=== PATIENT | female | born 1965 | race Caucasian/White ===

== ENCOUNTER 2016-05-13 14:37 | Inpatient (IN) | payer SELFPAY ==
[2016-05-13 14:37] VITALS: BMI 28.1
[2016-05-13] MEDS ORDERED: HYDROmorphone 0.5 mg/0.5 ml ISec IVP STA ×3 (15:55→23:44)
[2016-05-13] MEDS ORDERED: DiphenhydrAMINE 50 mg/ml Inj IVP STA ×4 (15:59→21:10)
[2016-05-13] MEDS ORDERED: DiphenhydrAMINE 50 mg/ml Inj ONE ×4 (16:06→21:42)
--- NOTE | 2016-05-13 16:46 | C.PDOC ---
History Of Present Illness 50-year-old female, PMHx includes B-Cell Lymphoma w/ widespread lymph nodes ( currently on chemo), presents to the emergency department with complaints of increased generalized pain and associated pain in right flank for the past several weeks. Patient was sent from [facility] for pain control; Additional Hx obtained from Dr Murray, who states that patient had a PET scan that showed improvement symptoms. States he prescribed long-acting narcotics for pt. Patient states she is taking Dilaudid, once daily, because she cannot afford any other narcotics. No other complaints at this time. Time Seen by Provider: 05/13/16 15:22 Chief Complaint (Nursing): Back Pain History Per: Patient, Other (PMD) History/Exam Limitations: no limitations Onset/Duration Of Symptoms: Days Severity: Severe Past Medical History Reviewed: Historical Data, Nursing Documentation, Vital Signs Vital Signs: Last Vital Signs Temp 98.1 F 05/13/16 22:30 Pulse 82 05/13/16 22:30 Resp 20 05/13/16 22:30 BP 149/84 05/13/16 22:30 Pulse Ox 99 05/13/16 22:30 - Medical History PMH: Anxiety, Diabetes, Gall Bladder Disease (cholecystectomy 3 yrs. ago), HTN, Malignancy (on chemo), Pancreatitis Other PMH: B cell lymphoma Surgical History: Cholecystectomy - [facility] Procedures ASSISTANCE WITH RESPIRATORY VENTILATION, 24-96 HRS, CPAP (10/14/15) BYPASS TRANSVERSE COLON TO CUTANEOUS, OPEN APPROACH (10/14/15) EXCISION OF AORTIC LYMPHATIC, PERCUTANEOUS APPROACH, DIAGN (09/20/15) EXCISION OF RIGHT UPPER LUNG LOBE, ENDO, DIAGN (10/14/15) EXCISION OF RIGHT UPPER LUNG LOBE, PERC APPROACH, DIAGN (01/01/16) EXCISION OF STOMACH, ENDO, DIAGN (05/24/15) INSERTION OF INFUSION DEV INTO SUP VENA CAVA, PERC APPROACH (01/01/16) INSERTION OF VAD INTO CHEST SUBCU/FASCIA, OPEN APPROACH (01/01/16) LAPAROSCOPIC CHOLECYSTECTOMY (08/23/13) MYRINGOTOMY W INTUBATION (09/01/12) REPAIR ABDOMINAL WALL, OPEN APPROACH (01/01/16) VENOUS CATHETERIZATION NEC (09/09/12) Family History: States: Unknown Family Hx - Social History Hx Tobacco Use: No Hx Alcohol Use: No Hx Substance Use: No Review Of Systems Except As Marked, All Systems Reviewed And Found Negative. Constitutional: Positive for: Weakness, Malaise. Negative for: Fever, Chills Cardiovascular: Negative for: Chest Pain, Palpitations Respiratory: Negative for: Shortness of Breath Gastrointestinal: Negative for: Nausea, Vomiting Musculoskeletal: Positive for: Back Pain Skin: Negative for: Rash Neurological: Negative for: Weakness, Numbness, Headache, Dizziness Physical Exam - Physical Exam Appears: Non-toxic, No Acute Distress Skin: Warm, Dry, No Rash Head: Atraumatic, Normacephalic Eye(s): bilateral: Normal Inspection, PERRL, EOMI Oral Mucosa: Moist Neck: Normal ROM Chest: Symmetrical Cardiovascular: Rhythm Regular Respiratory: Normal Breath Sounds, No Rales, No Rhonchi Gastrointestinal/Abdominal: Soft, No Tenderness, No Guarding, No Rebound Back: No CVA Tenderness, No Paraspinal Tenderness Extremity: Normal ROM Neurological/Psych: Oriented x3, Normal Speech, Normal Cognition ED Course And Treatment - Laboratory Results Result Diagrams: 05/13/16 19:53 05/13/16 19:53 O2 Sat by Pulse Oximetry: 99 Medical Decision Making Medical Decision Making: Discussed with dr Fiorella Machuca, initial plan pain relief office f/u Post mult dose of dilaudid/benadryl some relief, but no comfortable for dc. Pt has no long acting opiate at home Again discussed with dr Machuca who recommended observation Discussed with dr Bailey who admitted the pt Disposition - Disposition Disposition: HOSPITALIZED Disposition Time: 19:00 Condition: FAIR - Clinical Impression Clinical Impression: Diffuse large B cell lymphoma, Intractable pain - Scribe Statement The provider has reviewed the documentation as recorded by the Codi Allen All medical record entries made by the Codi were at my direction and personally dictated by me. I have reviewed the chart and agree that the record accurately reflects my personal performance of the history, physical exam, medical decision making, and the department course for this patient. I have also personally directed, reviewed, and agree with the discharge instructions and disposition. Decision To Admit - Pt Status Changed To: Hospital Disposition Of: Observation - . Bed Request Type: Regular Admitting Physician: Edmond Tellez Patient Diagnosis: Diffuse large B cell lymphoma, Intractable pain
[2016-05-13 18:32] LABS: RBC URINE < 1 /hpf (0-3); URINE BILIRUBIN NEGATIVE (NEGATIVE); URINE BLOOD NEGATIVE (NEGATIVE); URINE COLOR Straw (YELLOW); URINE GLUCOSE (UA) 3+ mg/dL (Normal); URINE KETONE NEGATIVE (NEGATIVE); URINE LEUKOCYTE ESTERASE NEG Leu/uL (Negative); URINE PROTEIN 1+ mg/dL (NEGATIVE); URINE UROBILINOGEN NORMAL mg/dL (0.2-1.0); WBC URINE 1 /hpf (0-5)
[2016-05-13] MEDS ORDERED: HYDROmorphone 1 mg/ml ISec ONE (19:45)
[2016-05-13 19:58] LABS: BASO % 0.1 % (0.0-2.0); HEMATOCRIT 29.2 % (34.0-47.0); LYMPH # 0.2 K/uL (1.0-4.3); LYMPH % 1.1 % (20.0-40.0); MEAN CELL VOLUME 86.3 fL (81.0-99.0); MEAN CORPUSCULAR HEMOGLOBIN 29.1 pg (27.0-31.0); MEAN CORPUSCULAR HGB CONC 33.7 g/dL (33.0-37.0); MEAN PLATELET VOLUME 8.1 fL (7.2-11.7); MONO # 0.2 K/uL (0.0-0.8); MONO % 0.8 % (0.0-10.0); PLATELET COUNT 161 K/uL (130-400); RED CELL DISTRIBUTION WIDTH 18.1 % (11.5-14.5); WHITE BLOOD COUNT 21.6 K/uL (4.8-10.8)
[2016-05-13 20:04] LABS: POTASSIUM 4.9 mmol/L (3.6-5.2)
[2016-05-13 20:06] LABS: ALB/GLOB RATIO 1.3 (1.0-2.1); BILIRUBIN,TOTAL 0.6 mg/dL (0.2-1.3); TOTAL PROTEIN 6.1 g/dL (6.3-8.3)
[2016-05-13 21:58] LABS: NEUTROPHIL 98 % (50-75); TOTAL CELLS COUNTED 100
--- NOTE | 2016-05-13 22:55 | CP.PCM.HP ---
<Connor Lin - Last Filed: 05/14/16 08:15> History of Present Illness - History of Present Illness History of Present Illness: CC: intractable pain, straining to urinate HPI: 50 year old female with PMHx significant for B cell lymphoma, HTN, GERD, DM presents with chief complaint of generalized body pain. Patient was sent up from the chemotherapy infusion center for pain control. Patient feels that her current pain control regimen of Dilaudid is insufficient. She admits taking Dilaudid doses earlier than prescribed because her pain is intolerable. She states she has had similar pain for the "past year," about the time of her cancer diagnosis. The worst pain she admits is in her right flank and neck, which cause her not to be able get comfortable during the day, sleep at night, or want to walk or eat. She describes the pain as 10/10, constant "24/7," that feels like her "bones are on-fire." She states this was her final dose of chemotherapy, which she was receiving every 3 weeks for the last 6 months. After each chemotherapy session, pt receives 5 days of prednisone, which has caused her blood glucose numbers to be increased. She admits increased urge to urinate, but states she is only able to pass a small amount of urine at each void. She admits to having to push to urinate. She denies hematuria, dysuria, burning sensation, or vaginal discharge. PMHx: GERD, HTN, DM, lymphoma Surgical Hx: ex-lap with transverse colostomy and later reversal, cholecystectomy Family Hx: Mom - Kidney Tumor, Uncle- kidney disease, father had three strokes , brother of bone cancer in 2011 at the age of 52; older brother had a CABG Social Hx: admits to smoking tobacco and hookah from [id number]; has since stopped, At that time, smoked 1 ppd; denies alcohol or illicit drug use. Lives with family in [place]. Meds: Insulin Lantus 15 units AC, Metformin 1000 mg daily, Dilaudid 2 mg PO twice a day, Humalog 75/25 ( 10 three times a day after meals); prednisone approx 5 days post chemotherapy treatments Allergies: Penicillin and morphine ( hives) PMD: Clinic [facility]- Dr. Cruz Machuca Present on Admission - Present on Admission Any Indicators Present on Admission: No History of DVT/PE: No History of Uncontrolled Diabetes: No Urinary Catheter: No Review of Systems - Constitutional Constitutional: absent: Chills, Fever, Headache, Weight Gain, Weight Loss - EENT Eyes: absent: Change in Vision Ears: absent: Decreased Hearing Nose/Mouth/Throat: absent: Nasal Congestion - Cardiovascular Cardiovascular: absent: Chest Pain, Chest Pain at Rest, Dyspnea, Dyspnea on Exertion, Leg Edema, Palpitations - Respiratory Respiratory: absent: Cough, Hemoptysis - Gastrointestinal Gastrointestinal: Abdominal Pain, Constipation, Nausea, Vomiting. absent: Diarrhea - Genitourinary Genitourinary: Difficulty Urinating, Flank Pain, Urinary Frequency. absent: Dysuria, Hematuria - Musculoskeletal Musculoskeletal: Arthralgias, Back Pain, Myalgias - Integumentary Integumentary: Rash (erythematous, pruritc rash near port on chest) - Neurological Neurological: absent: Dizziness, Headaches - Psychiatric Psychiatric: Anxiety - Endocrine Endocrine: Polyuria. absent: Palpitations, Polydipsia, Polyphagia Past Patient History - Infectious Disease Hx of Infectious Diseases: None - Past Medical History & Family History Past Medical History?: Yes - Past Social History Smoking Status: Never Smoked - CARDIAC Hx Hypertension: Yes - PULMONARY Hx Respiratory Disorders: No - NEUROLOGICAL Hx Neurological Disorder: No - HEENT Hx HEENT Problems: No - RENAL Hx Chronic Kidney Disease: No - ENDOCRINE/METABOLIC Hx Diabetes Mellitus Type 2: Yes - HEMATOLOGICAL/ONCOLOGICAL Hx Blood Transfusions: Yes (04/26) Hx Cancer: Yes Other/Comment: stomach, lung, liver. - INTEGUMENTARY Hx Dermatological Problems: No - MUSCULOSKELETAL/RHEUMATOLOGICAL Hx Falls: No - GASTROINTESTINAL Hx Gall Bladder Disease: Yes (cholecystectomy 3 yrs. ago) Hx Pancreatitis: Yes - GENITOURINARY/GYNECOLOGICAL Hx Genitourinary Disorders: No - PSYCHIATRIC Hx Anxiety: Yes Hx Substance Use: No - SURGICAL HISTORY Hx Cholecystectomy: Yes - ANESTHESIA Hx Anesthesia: Yes Hx Anesthesia Reactions: No Hx Malignant Hyperthermia: No Meds Allergies/Adverse Reactions: Allergies Allergy/AdvReac Type Severity Reaction Status Date / Time Penicillins Allergy Verified 05/13/16 14:42 morphine AdvReac ITCHING Verified 05/13/16 14:42 Physical Exam - Constitutional Appears: Non-toxic, No Acute Distress - Head Exam Head Exam: ATRAUMATIC, NORMOCEPHALIC - Eye Exam Eye Exam: EOMI, Normal appearance, PERRL - ENT Exam ENT Exam: Mucous Membranes Moist - Neck Exam Neck exam: Positive for: Normal Inspection - Respiratory Exam Respiratory Exam: Clear to Auscultation Bilateral, NORMAL BREATHING PATTERN. absent: Rales, Rhonchi, Wheezes, Respiratory Distress - Cardiovascular Exam Cardiovascular Exam: REGULAR RHYTHM, +S1, +S2 Additional comments: Port-a-cath located in center chest - GI/Abdominal Exam GI & Abdominal Exam: Hypoactive Bowel Sounds, Soft. absent: Guarding, Tenderness Additional comments: Ventral hernia (bulges with coughing) Scarring noted from colostomy reversal - Extremities Exam Extremities exam: Positive for: normal capillary refill, normal inspection, tenderness ("bones on fire"), pedal pulses present - Back Exam Back exam: CVA tenderness (R), tenderness. absent: CVA tenderness (L) Additional comments: Tenderness with palpation of spine and paravertebral muscles from T7/8- L5. Tissure texture changes noted in this area. Pain on palpation at right iliac crest. - Neurological Exam Neurological exam: Alert, Oriented x3 - Psychiatric Exam Psychiatric exam: Normal Affect - Skin Skin Exam: Normal Color, Rash (erythematous rash near port on chest), Warm Results - Vital Signs Recent Vital Signs: Last Vital Signs Temp 98.2 F 05/13/16 19:05 Pulse 86 05/13/16 19:05 Resp 14 05/13/16 19:05 BP 160/87 H 05/13/16 19:05 Pulse Ox 99 05/13/16 21:56 - Labs Result Diagrams: 05/13/16 19:53 05/13/16 19:53 Assessment & Plan - Assessment and Plan (Free Text) Assessment: Body aches Worst in Neck, Lower back Secondary to tumor burden/chemo Dilaudid 4mg PO Q4H PRN Benadryl 25mg IV Q4H PRN Abdominal Pain Secondary to tumor burden/chemo History of colostomy, then reversal Zofran 4mg IVP Q6 PRN Dilaudid 4mg PO Q4H PRN Benadryl 25mg IV Q4H PRN Dysuria Pt complaining of difficult urination, straining On prior CT, tumor burden found near ureter UA: 3+ glucose, 1+ protein f/u Urine culture Tamsulosin 0.4mg PO Daily Type 2, Diabetes Mellitus Accuchecks Continue Home med: Lantus 15 units in AM, Humalog 75/25 10 units ACTID Hold Metformin 1000mg PO Daily due to renal function A1C: 7.9 (05/03/16) Diffuse B-Cell lymphoma Management per Hem/Onc Hem/Onc: Dr. Machuca, help appreciated - f/u reccs Palliative Care consult, help appreciated - f/u reccs Dietary Referral, help appreciated - started on heart healthy diet Leukocytosis Pt receiving Neupogen with chemo Nuetrolphils 98%, one band f/u labs Hx of HTN Normotensive in ED Denies currently taking home BP meds, though listed on recent admission Elevated Bun/Cr Believed secondary to chemo BUN/Cr 32/1.3 Pt at Baseline of 1.3, much higher in past (3.8) Constipation Miralax Q12H Prophylaxis Heparin 5000units SC Q8H Protonix 40mg IV Daily SCDs <Edmond Tellez P - Last Filed: 05/21/16 08:28> Results - Vital Signs Recent Vital Signs: Last Vital Signs Temp 98.6 F 05/21/16 07:47 Pulse 93 H 05/21/16 07:47 Resp 20 05/21/16 07:47 BP 133/84 05/21/16 07:47 Pulse Ox 98 05/21/16 07:47 - Labs Result Diagrams: 05/21/16 07:40 05/21/16 07:40 Labs: Laboratory Results - last 24 hr 05/20/16 05/20/16 05/20/16 08:00 11:34 16:39 WBC RBC Hgb Hct MCV MCH MCHC RDW Plt Count MPV Neut % (Auto) Lymph % (Auto) [place] % (Auto) Eos % (Auto) Baso % (Auto) Neut # Lymph # Eagle # Eos # Baso # Neutrophils % (Manual) 40 L Band Neutrophils % 10 H Lymphocytes % (Manual) 19 L Monocytes % (Manual) 28 H Metamyelocytes % 1 H Myelocytes % 2 H Platelet Estimate Normal Basophilic Stippling Slight Anisocytosis (manual) Slight Sodium Potassium Chloride Carbon Dioxide Anion Gap BUN Creatinine Est GFR ( Amer) Est GFR (Non-Af Amer) POC Glucose (mg/dL) 232 H 186 H Random Glucose Calcium Phosphorus Magnesium Total Bilirubin AST ALT Alkaline Phosphatase Total Protein Albumin Globulin Albumin/Globulin Ratio Urine Color Urine Clarity Urine pH Ur Specific [place] Urine Protein Urine Glucose (UA) Urine Ketones Urine Blood Urine Nitrate Urine Bilirubin Urine Urobilinogen Ur Leukocyte Esterase Urine WBC (Auto) Ur Squamous Epith Cells 05/20/16 05/20/16 05/21/16 21:39 21:52 01:05 WBC RBC Hgb Hct MCV MCH MCHC RDW Plt Count MPV Neut % (Auto) Lymph % (Auto) [place] % (Auto) Eos % (Auto) Baso % (Auto) Neut # Lymph # Eagle # Eos # Baso # Neutrophils % (Manual) Band Neutrophils % Lymphocytes % (Manual) Monocytes % (Manual) Metamyelocytes % Myelocytes % Platelet Estimate Basophilic Stippling Anisocytosis (manual) Sodium Potassium Chloride Carbon Dioxide Anion Gap BUN Creatinine Est GFR ( Amer) Est GFR (Non-Af Amer) POC Glucose (mg/dL) 340 H 418 H* Random Glucose Calcium Phosphorus Magnesium Total Bilirubin AST ALT Alkaline Phosphatase Total Protein Albumin Globulin Albumin/Globulin Ratio Urine Color Yellow Urine Clarity Clear Urine pH 7.0 Ur Specific [place] 1.009 Urine Protein 1+ H Urine Glucose (UA) Normal Urine Ketones Negative Urine Blood Negative Urine Nitrate Negative Urine Bilirubin Negative Urine Urobilinogen Normal Ur Leukocyte Esterase Neg Urine WBC (Auto) < 1 Ur Squamous Epith Cells < 1 05/21/16 05/21/16 05/21/16 06:03 07:04 07:40 WBC 3.2 L RBC 3.10 L Hgb 8.9 L Hct 26.7 L MCV 86.1 MCH 28.6 MCHC 33.2 RDW 17.3 H Plt Count 142 MPV 8.7 Neut % (Auto) 51.1 Lymph % (Auto) 20.1 Eagle % (Auto) 27.1 H Eos % (Auto) 0.9 Baso % (Auto) 0.8 Neut # 1.6 L Lymph # 0.6 L Eagle # 0.9 H Eos # 0.0 Baso # 0.0 Neutrophils % (Manual) Band Neutrophils % Lymphocytes % (Manual) Monocytes % (Manual) Metamyelocytes % Myelocytes % Platelet Estimate Basophilic Stippling Anisocytosis (manual) Sodium 132 Potassium 4.1 Chloride 91 L Carbon Dioxide 30 Anion Gap 16 BUN 22 H Creatinine 1.5 H Est GFR ( Amer) 44 Est GFR (Non-Af Amer) 37 POC Glucose (mg/dL) 387 H 326 H Random Glucose 306 H Calcium 8.3 L Phosphorus 4.2 Magnesium 1.9 Total Bilirubin 0.2 AST 17 ALT 17 Alkaline Phosphatase 68 Total Protein 6.4 Albumin 3.4 L Globulin 3.0 Albumin/Globulin Ratio 1.2 Urine Color Urine Clarity Urine pH Ur Specific [place] Urine Protein Urine Glucose (UA) Urine Ketones Urine Blood Urine Nitrate Urine Bilirubin Urine Urobilinogen Ur Leukocyte Esterase Urine WBC (Auto) Ur Squamous Epith Cells Attending/Attestation - Attestation I have personally seen and examined this patient.: Yes I have fully participated in the care of the patient.: Yes I have reviewed all pertinent clinical information: Yes
[2016-05-14] MEDS ORDERED: DiphenhydrAMINE 50 mg/ml Inj IVP STA ×3 (00:16→09:15)
[2016-05-14] MEDS ORDERED: POLYETHYLENE GLYCOL 3350 17 GM/Dose PACKET PO SCH (01:15)
[2016-05-14] MEDS: (Novolog) Insulin Aspart, Recombinant 100 u/ml 10 ml vial SC SCH ×3 (08:03→17:17)
[2016-05-14] MEDS: (Novolin R) Insulin Human Regular 100 units/ml vial SC SCH ×4 (08:04→21:50)
[2016-05-14] MEDS: POLYETHYLENE GLYCOL 3350 17 GM/Dose PACKET PO SCH ×2 (09:59→21:47)
[2016-05-14 11:36] LABS: BASO % 0.3 % (0.0-2.0); HEMATOCRIT 27.7 % (34.0-47.0); LYMPH % 6.5 % (20.0-40.0); MEAN CELL VOLUME 86.2 fL (81.0-99.0); MEAN CORPUSCULAR HEMOGLOBIN 29.4 pg (27.0-31.0); MEAN CORPUSCULAR HGB CONC 34.1 g/dL (33.0-37.0); MEAN PLATELET VOLUME 8.5 fL (7.2-11.7); MONO # 0.1 K/uL (0.0-0.8); MONO % 0.7 % (0.0-10.0); NRBC % 0.1 % (0.0-2.0); PLATELET COUNT 142 K/uL (130-400); RED CELL DISTRIBUTION WIDTH 18.3 % (11.5-14.5)
[2016-05-14 11:38] LABS: POTASSIUM 3.1 mmol/L (3.6-5.2)
[2016-05-14 11:40] LABS: BILIRUBIN,TOTAL 0.5 mg/dL (0.2-1.3); TOTAL PROTEIN 6.1 g/dL (6.3-8.3)
[2016-05-14 11:41] LABS: CALCIUM 8.4 mg/dl (8.6-10.4); MAGNESIUM 1.6 mg/dL (1.6-2.3); PHOSPHOROUS 3.7 mg/dL (2.5-4.5)
[2016-05-14] MEDS: (Lantus) Insulin Glargine, Recombinant SC SCH (11:49)
[2016-05-14] MEDS: Docusate-Senna 50 mg-8.6 mg Tab PO SCH ×2 (11:49→21:52)
[2016-05-14] MEDS: HYDROmorphone 1 mg/ml ISec IVP PRN ×3 (12:04→20:10)
[2016-05-14 12:05] LABS: NEUTROPHIL 86 % (50-75); TOTAL CELLS COUNTED 100
[2016-05-14] MEDS ORDERED: Potassium Chloride 20 mEq/15 ml LIQ UD PO STA (12:08)
[2016-05-14] MEDS: DiphenhydrAMINE 50 mg/ml Inj IVP PRN ×3 (12:34→20:10)
[2016-05-14] MEDS ORDERED: Potassium Chloride 20 mEq 100 ML IVPB ONE ×2 (13:14→15:30)
--- NOTE | 2016-05-14 13:26 | CP.PCM.PN ---
<Oren Navarro - Last Filed: 05/14/16 14:37> Subjective - Date & Time of Evaluation Date of Evaluation: 05/14/16 Time of Evaluation: 08:00 - Subjective Subjective: patient seen and examined at bedside; was stating that her pain is "just too much to bear" and that "none of this dilaudid is working anymore". states she wants a palliative care consult for pain management. She denies any fevers/ chills, GARY, CP, SOB, abdominal pain, N/V/D, dysuria/freq/urg, or lower extremity swelling. She +body aches, "bone pain". Objective - Vital Signs/Intake and Output Vital Signs (last 24 hours): Temp Pulse Resp BP Pulse Ox 98.1 F 78 20 149/86 99 05/14/16 08:33 05/14/16 08:33 05/14/16 08:33 05/14/16 08:33 05/14/16 08:33 - Medications Medications: Current Medications Diphenhydramine HCl (Benadryl) 25 mg IVP Q4H PRN Last Admin: 05/14/16 12:34 Dose: 25 mg Heparin Sodium (Porcine) (Heparin) 5,000 units SC Q8 [facility] Last Admin: 05/14/16 13:07 Dose: 5,000 units Hydromorphone HCl (Dilaudid) 4 mg PO Q4H PRN PRN Reason: Pain, severe (8-10) Last Admin: 05/14/16 08:01 Dose: 4 mg Hydromorphone HCl (Dilaudid) 1 mg IVP Q4H PRN PRN Reason: Pain, severe (8-10) Last Admin: 05/14/16 12:04 Dose: 1 mg Potassium Chloride (Potassium Chloride 20 Meq/100 Ml) 100 mls @ 50 mls/hr IVPB ONCE ONE Stop: 05/14/16 15:13 Potassium Chloride (Potassium Chloride 20 Meq/100 Ml) 100 mls @ 50 mls/hr IVPB ONCE ONE Stop: 05/14/16 17:29 Insulin Aspart (Novolog) 10 unit SC ACTID [facility] Last Admin: 05/14/16 12:06 Dose: 10 unit Insulin Glargine (Lantus) 15 unit SC DAILY [facility] Last Admin: 05/14/16 11:49 Dose: 15 units Insulin Human Regular (Novolin R) 0 unit SC ACHS [facility] PRN Reason: Protocol Last Admin: 05/14/16 12:06 Dose: 3 unit Ondansetron HCl (Zofran Inj) 4 mg IVP Q4H PRN PRN Reason: Nausea/Vomiting Pantoprazole Sodium (Protonix Inj) 40 mg IVP DAILY [facility] Last Admin: 05/14/16 09:56 Dose: 40 mg Polyethylene Glycol (Miralax) 17 gm PO Q12 [facility] Last Admin: 05/14/16 09:59 Dose: Not Given Senna/Docusate Sodium (Senokot S 50 Mg-8.6 Mg) 1 tab PO BID [facility] Last Admin: 05/14/16 11:49 Dose: 1 tab Tamsulosin HCl (Flomax) 0.4 mg PO DAILY [facility] Last Admin: 05/14/16 09:58 Dose: 0.4 mg - Labs Labs: 05/14/16 11:22 05/14/16 11:22 - Constitutional Appears: Chronically Ill - Head Exam Head Exam: ATRAUMATIC Additional comments: bald - Eye Exam Eye Exam: EOMI Pupil Exam: PERRL - ENT Exam ENT Exam: Mucous Membranes Moist - Neck Exam Neck Exam: Full ROM. absent: Lymphadenopathy - Respiratory Exam Respiratory Exam: Clear to Ausculation Bilateral, NORMAL BREATHING PATTERN. absent: Rales, Rhonchi, Wheezes - Cardiovascular Exam Cardiovascular Exam: REGULAR RHYTHM, +S1, +S2 - GI/Abdominal Exam GI & Abdominal Exam: Soft, Normal Bowel Sounds. absent: Tenderness - Rectal Exam Rectal Exam: Deferred - Extremities Exam Extremities Exam: Full ROM. absent: Calf Tenderness - Back Exam Back Exam: NORMAL INSPECTION. absent: CVA tenderness (L), CVA tenderness (R) - Neurological Exam Neurological Exam: Alert, Awake, CN II-XII Intact, Oriented x3 - Psychiatric Exam Psychiatric exam: Normal Affect - Skin Skin Exam: Warm Assessment and Plan - Assessment and Plan (Free Text) Assessment: Body aches Secondary to tumor burden/chemo Dilaudid 4mg PO Q4H PRN Benadryl 25mg IV Q4H PRN Flu neg f/u palliative care consult for pain management will start long acting Oxycodone 10mg Q12 here Abdominal Pain Secondary to tumor burden/chemo History of colostomy, then reversal Zofran 4mg IVP Q6 PRN Dilaudid 4mg PO Q4H PRN Benadryl 25mg IV Q4H PRN f/u palliative care consult; will start long acting oxycodone 10mg Q12h here Dysuria Pt complaining of difficult urination, straining On prior CT, tumor burden found near ureter UA: 3+ glucose, 1+ protein f/u Urine culture Tamsulosin 0.4mg PO Daily; with this the dysuria is improved Type 2, Diabetes Mellitus Accuchecks Continue Home med: Lantus 15 units in AM, Humalog 75/25 10 units ACTID Hold Metformin 1000mg PO Daily due to renal function A1C: 7.9 (05/03/16) c/w current management Diffuse B-Cell lymphoma Management per Hem/Onc Hem/Onc: Dr. Machuca, help appreciated - f/u reccs Palliative Care consult, help appreciated - f/u reccs Dietary Referral, help appreciated - started on heart healthy diet Leukocytosis Pt receiving Neupogen with chemo Nuetrolphils 98%, one band f/u labs Hx of HTN Normotensive in ED Denies currently taking home BP meds, though listed on recent admission Elevated Bun/Cr Believed secondary to chemo patient has had elevated creatinine into the mid 2's in the patient; this is more towards her baseline since chemo Constipation Miralax Q12H Senna-Colace Prophylaxis Heparin 5000units SC Q8H Protonix 40mg IV Daily SCDs Case discussed with Dr. Nettie Navarro PGY1 Hospitalist service <Chaka Sheffield - Last Filed: 05/15/16 07:21> Objective - Vital Signs/Intake and Output Vital Signs (last 24 hours): Temp Pulse Resp BP Pulse Ox 97.9 F 68 20 188/92 H 99 05/15/16 00:00 05/15/16 04:30 05/15/16 04:30 05/15/16 04:30 05/15/16 00:00 Intake and Output: 05/15/16 05/15/16 06:59 18:59 Intake Total 300 Balance 300 - Medications Medications: Current Medications Diphenhydramine HCl (Benadryl) 25 mg IVP Q4H PRN Last Admin: 05/15/16 04:32 Dose: 25 mg Heparin Sodium (Porcine) (Heparin) 5,000 units SC Q8 [facility] Last Admin: 05/15/16 06:25 Dose: 5,000 units Hydromorphone HCl (Dilaudid) 4 mg PO Q4H PRN PRN Reason: Pain, severe (8-10) Last Admin: 05/14/16 08:01 Dose: 4 mg Hydromorphone HCl (Dilaudid) 1 mg IVP Q4H PRN PRN Reason: Pain, severe (8-10) Last Admin: 05/15/16 04:30 Dose: 1 mg Insulin Aspart (Novolog) 10 unit SC ACTID [facility] Last Admin: 05/14/16 17:17 Dose: 10 unit Insulin Glargine (Lantus) 15 unit SC DAILY [facility] Last Admin: 05/14/16 11:49 Dose: 15 units Insulin Human Regular (Novolin R) 0 unit SC ACHS [facility] PRN Reason: Protocol Last Admin: 05/14/16 21:50 Dose: 4 unit Ondansetron HCl (Zofran Inj) 4 mg IVP Q4H PRN PRN Reason: Nausea/Vomiting Oxycodone HCl (Oxycontin Extended Release Tab) 10 mg PO Q12 [facility] Last Admin: 05/14/16 22:22 Dose: 10 mg Pantoprazole Sodium (Protonix Inj) 40 mg IVP DAILY [facility] Last Admin: 05/14/16 09:56 Dose: 40 mg Polyethylene Glycol (Miralax) 17 gm PO Q12 [facility] Last Admin: 05/14/16 21:47 Dose: 17 gm Senna/Docusate Sodium (Senokot S 50 Mg-8.6 Mg) 1 tab PO BID [facility] Last Admin: 05/14/16 21:52 Dose: 1 tab Tamsulosin HCl (Flomax) 0.4 mg PO DAILY [facility] Last Admin: 05/14/16 09:58 Dose: 0.4 mg - Labs Labs: 05/14/16 11:22 05/14/16 11:22 Attending/Attestation - Attestation I have personally seen and examined this patient.: Yes I have fully participated in the care of the patient.: Yes I have reviewed all pertinent clinical information, including history, physical exam and plan: Yes Notes (Text): Patient with diffuse large B-cell lymhoma, on chemo with R-CHOP, admitted for intractable R flank pain that radiates to RLQ and R groin area; Patient's pain has been ongoing since October 2015, on dilaudid 2 mg prn PO at home with only an hour duration of pain relief; CT scans including last month have been unrevealing; Etiology possibly related to lymph node compressing on ureter; can consider renal lasix scan to look for possible partial obstruction (although no hydronephrosis on CT); B-cell lymphoma responding well to chemo per primary oncologist; received prednisone 100 mg PO today; DM with uncontrolled sugars due to steroids; on basal and mealtime insulin, will change sliding scale to high dose; -start oxycodone 10 mg ER q12h (not on long acting opiates at home), increase dose as needed -continue prn dilaudid -continue flomax 0.4 mg daily
[2016-05-14] MEDS ORDERED: oxyCODONE 20 mg ER Tab (oxyCONTIN) PO SCH ×2 (13:30)
[2016-05-14] MEDS: oxyCODONE 10 mg ER Tab (oxyCONTIN) PO SCH ×2 (16:08→22:22)
--- NOTE | 2016-05-14 19:12 | CP.PCM.CON ---
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 The patient has done well from a cancer standpoint with excellent response noted by PET CT scan in 04/2015. She notes to progressive right flank pain that radiates down her back and down to her groin. Her pain began before her cancer diagnosis but has worsened since then. She denies dysuria and fever. She requires narcotic pain medication for relief but has had trouble affording these medications. Past medical history: DLBCL Past surgical history: Colon resection, portacath placement Family history: Denies hematologic and oncologic problems Social history: Denies tobacco, alcohol, and illicit drug use. Allergies: Penicillin, morphine Review of systems: All remaining review of systems including HEENT, cardiovascular, respiratory, gastrointestinal, genitourinary, musculoskeletal, dermatologic, neurologic, and psychiatric are negative unless mentioned in the HPI. Past Patient History - Infectious Disease Hx of Infectious Diseases: None - Past Medical History & Family History Past Medical History?: Yes - Past Social History Smoking Status: Never Smoked - CARDIAC Hx Hypertension: Yes - PULMONARY Hx Respiratory Disorders: No - NEUROLOGICAL Hx Neurological Disorder: No - HEENT Hx HEENT Problems: No - RENAL Hx Chronic Kidney Disease: No - ENDOCRINE/METABOLIC Hx Diabetes Mellitus Type 2: Yes - HEMATOLOGICAL/ONCOLOGICAL Hx Blood Transfusions: Yes (04/26) Hx Cancer: Yes Other/Comment: stomach, lung, liver. - INTEGUMENTARY Hx Dermatological Problems: No - MUSCULOSKELETAL/RHEUMATOLOGICAL Hx Falls: No - GASTROINTESTINAL Hx Gall Bladder Disease: Yes (cholecystectomy 3 yrs. ago) Hx Pancreatitis: Yes - GENITOURINARY/GYNECOLOGICAL Hx Genitourinary Disorders: No - PSYCHIATRIC Hx Anxiety: Yes Hx Substance Use: No - SURGICAL HISTORY Hx Cholecystectomy: Yes - ANESTHESIA Hx Anesthesia: Yes Hx Anesthesia Reactions: No Hx Malignant Hyperthermia: No Meds Allergies/Adverse Reactions: Allergies Allergy/AdvReac Type Severity Reaction Status Date / Time Penicillins Allergy Verified 05/13/16 14:42 morphine AdvReac ITCHING Verified 05/13/16 14:42 - Medications Medications: Current Medications Diphenhydramine HCl (Benadryl) 25 mg IVP Q4H PRN Last Admin: 05/14/16 16:07 Dose: 25 mg Heparin Sodium (Porcine) (Heparin) 5,000 units SC Q8 [facility] Last Admin: 05/14/16 13:07 Dose: 5,000 units Hydromorphone HCl (Dilaudid) 4 mg PO Q4H PRN PRN Reason: Pain, severe (8-10) Last Admin: 05/14/16 08:01 Dose: 4 mg Hydromorphone HCl (Dilaudid) 1 mg IVP Q4H PRN PRN Reason: Pain, severe (8-10) Last Admin: 05/14/16 16:07 Dose: 1 mg Insulin Aspart (Novolog) 10 unit SC ACTID [facility] Last Admin: 05/14/16 17:17 Dose: 10 unit Insulin Glargine (Lantus) 15 unit SC DAILY [facility] Last Admin: 05/14/16 11:49 Dose: 15 units Insulin Human Regular (Novolin R) 0 unit SC ACHS [facility] PRN Reason: Protocol Last Admin: 05/14/16 17:16 Dose: 10 unit Ondansetron HCl (Zofran Inj) 4 mg IVP Q4H PRN PRN Reason: Nausea/Vomiting Oxycodone HCl (Oxycontin Extended Release Tab) 10 mg PO Q12 [facility] Last Admin: 05/14/16 16:08 Dose: 10 mg Pantoprazole Sodium (Protonix Inj) 40 mg IVP DAILY [facility] Last Admin: 05/14/16 09:56 Dose: 40 mg Polyethylene Glycol (Miralax) 17 gm PO Q12 [facility] Last Admin: 05/14/16 09:59 Dose: Not Given Senna/Docusate Sodium (Senokot S 50 Mg-8.6 Mg) 1 tab PO BID [facility] Last Admin: 05/14/16 11:49 Dose: 1 tab Tamsulosin HCl (Flomax) 0.4 mg PO DAILY [facility] Last Admin: 05/14/16 09:58 Dose: 0.4 mg Physical Exam - Head Exam Head Exam: ATRAUMATIC - Eye Exam Eye Exam: Normal appearance - ENT Exam ENT Exam: Mucous Membranes Dry - Respiratory Exam Respiratory Exam: NORMAL BREATHING PATTERN - Cardiovascular Exam Cardiovascular Exam: +S1, +S2 - GI/Abdominal Exam GI & Abdominal Exam: Normal Bowel Sounds - Extremities Exam Extremities exam: Positive for: normal inspection - Neurological Exam Neurological exam: Oriented x3 - Psychiatric Exam Psychiatric exam: Normal Affect, Normal Mood - Skin Skin Exam: Warm Results - Vital Signs Recent Vital Signs: Last Vital Signs Temp 98.1 F 05/14/16 08:33 Pulse 78 05/14/16 08:33 Resp 20 05/14/16 08:33 BP 149/86 05/14/16 08:33 Pulse Ox 99 05/14/16 08:33 - Labs Result Diagrams: 05/14/16 11:22 05/14/16 11:22 Labs: Laboratory Results - last 24 hr 05/14/16 05/14/16 05/14/16 07:13 11:06 11:22 WBC 16.0 H RBC 3.21 L Hgb 9.5 L Hct 27.7 L MCV 86.2 MCH 29.4 MCHC 34.1 RDW 18.3 H Plt Count 142 MPV 8.5 Neut % (Auto) 92.5 H Lymph % (Auto) 6.5 L Beckham % (Auto) 0.7 Eos % (Auto) 0.0 Baso % (Auto) 0.3 Neut # 14.8 H Lymph # 1.0 Beckham # 0.1 Eos # 0.0 Baso # 0.0 Neutrophils % (Manual) 86 H Lymphocytes % (Manual) 13 L Monocytes % (Manual) 1 Platelet Estimate Normal Hypochromasia (manual) Slight Anisocytosis (manual) Slight Sodium 136 Potassium 3.1 L Chloride 95 L Carbon Dioxide 26 Anion Gap 18 BUN 32 H Creatinine 1.4 H Est GFR ( Amer) 48 Est GFR (Non-Af Amer) 40 POC Glucose (mg/dL) 175 H 235 H Random Glucose 217 H Calcium 8.4 L Phosphorus 3.7 Magnesium 1.6 Total Bilirubin 0.5 AST 13 L ALT 19 Alkaline Phosphatase 70 Total Protein 6.1 L Albumin 3.1 L Globulin 3.0 Albumin/Globulin Ratio 1.0 05/14/16 16:51 WBC RBC Hgb Hct MCV MCH MCHC RDW Plt Count MPV Neut % (Auto) Lymph % (Auto) Beckham % (Auto) Eos % (Auto) Baso % (Auto) Neut # Lymph # Beckham # Eos # Baso # Neutrophils % (Manual) Lymphocytes % (Manual) Monocytes % (Manual) Platelet Estimate Hypochromasia (manual) Anisocytosis (manual) Sodium Potassium Chloride Carbon Dioxide Anion Gap BUN Creatinine Est GFR ( Amer) Est GFR (Non-Af Amer) POC Glucose (mg/dL) 439 H* Random Glucose Calcium Phosphorus Magnesium Total Bilirubin AST ALT Alkaline Phosphatase Total Protein Albumin Globulin Albumin/Globulin Ratio Assessment & Plan (1) Intractable pain Assessment and Plan: unclear etiology; chronic and before her cancer diagnosis recommend pain management evaluation narcotic pain meds with bowel regimen Status: Acute (2) Anemia Assessment and Plan: anemia of chemotherapy no transfusion indication Status: Acute (3) Leukocytosis Assessment and Plan: likely secondary to neupogen Status: Acute (4) Diffuse large B cell lymphoma Assessment and Plan: s/p 6 cycle of RCHOP last day of prednisone 100mg PO given today outpatient PET CT scan Thank you for this interesting consult. Status: Acute
[2016-05-14] MEDS ORDERED: DiphenhydrAMINE 50 mg/ml Inj IVP ONE (21:56)
[2016-05-14] MEDS ORDERED: oxyCODONE 10 mg ER Tab (oxyCONTIN) PO SCH (22:00)
[2016-05-15] MEDS: HYDROmorphone 1 mg/ml ISec IVP PRN ×6 (00:30→21:38)
[2016-05-15] MEDS: DiphenhydrAMINE 50 mg/ml Inj IVP PRN ×6 (00:30→21:38)
--- NOTE | 2016-05-15 01:51 | CP.PCM.PN ---
Subjective - Date & Time of Evaluation Date of Evaluation: 05/15/16 Time of Evaluation: 01:46 - Subjective Subjective: PGY-1 note for medicine service Pt seen and examined at bedside. Pt complaining of pruritus and requesting more benadryl even though she just got one dose. She has no other complaints at this time. Denies any fevers, chills, chest pain, sob, nausea or vomiting Objective - Vital Signs/Intake and Output Vital Signs (last 24 hours): Temp Pulse Resp BP Pulse Ox 97.9 F 66 20 177/90 H 99 05/15/16 00:00 05/15/16 00:00 05/15/16 00:00 05/15/16 00:00 05/15/16 00:00 Intake and Output: 05/14/16 05/15/16 18:59 06:59 Intake Total 600 Balance 600 - Medications Medications: Current Medications Diphenhydramine HCl (Benadryl) 25 mg IVP Q4H PRN Last Admin: 05/15/16 00:30 Dose: 25 mg Heparin Sodium (Porcine) (Heparin) 5,000 units SC Q8 [facility] Last Admin: 05/14/16 21:52 Dose: 5,000 units Hydromorphone HCl (Dilaudid) 4 mg PO Q4H PRN PRN Reason: Pain, severe (8-10) Last Admin: 05/14/16 08:01 Dose: 4 mg Hydromorphone HCl (Dilaudid) 1 mg IVP Q4H PRN PRN Reason: Pain, severe (8-10) Last Admin: 05/15/16 00:30 Dose: 1 mg Insulin Aspart (Novolog) 10 unit SC ACTID [facility] Last Admin: 05/14/16 17:17 Dose: 10 unit Insulin Glargine (Lantus) 15 unit SC DAILY [facility] Last Admin: 05/14/16 11:49 Dose: 15 units Insulin Human Regular (Novolin R) 0 unit SC ACHS [facility] PRN Reason: Protocol Last Admin: 05/14/16 21:50 Dose: 4 unit Ondansetron HCl (Zofran Inj) 4 mg IVP Q4H PRN PRN Reason: Nausea/Vomiting Oxycodone HCl (Oxycontin Extended Release Tab) 10 mg PO Q12 [facility] Last Admin: 05/14/16 22:22 Dose: 10 mg Pantoprazole Sodium (Protonix Inj) 40 mg IVP DAILY [facility] Last Admin: 05/14/16 09:56 Dose: 40 mg Polyethylene Glycol (Miralax) 17 gm PO Q12 [facility] Last Admin: 05/14/16 21:47 Dose: 17 gm Senna/Docusate Sodium (Senokot S 50 Mg-8.6 Mg) 1 tab PO BID [facility] Last Admin: 05/14/16 21:52 Dose: 1 tab Tamsulosin HCl (Flomax) 0.4 mg PO DAILY [facility] Last Admin: 05/14/16 09:58 Dose: 0.4 mg - Labs Labs: 05/14/16 11:22 05/14/16 11:22 - Constitutional Appears: Non-toxic, In Acute Distress - Head Exam Head Exam: ATRAUMATIC, NORMOCEPHALIC - Eye Exam Eye Exam: Normal appearance Pupil Exam: PERRL - ENT Exam ENT Exam: Mucous Membranes Moist - Respiratory Exam Respiratory Exam: Clear to Ausculation Bilateral, NORMAL BREATHING PATTERN - Cardiovascular Exam Cardiovascular Exam: +S1, +S2 - GI/Abdominal Exam GI & Abdominal Exam: Soft, Normal Bowel Sounds - Neurological Exam Neurological Exam: Alert, Awake - Skin Skin Exam: Dry, Warm Assessment and Plan - Assessment and Plan (Free Text) Assessment: Body aches Secondary to tumor burden/chemo Dilaudid 4mg PO Q4H PRN Benadryl 25mg IV Q4H PRN Flu neg f/u palliative care consult for pain management will start long acting Oxycodone 10mg Q12 here Abdominal Pain Secondary to tumor burden/chemo History of colostomy, then reversal Zofran 4mg IVP Q6 PRN Dilaudid 4mg PO Q4H PRN Benadryl 25mg IV Q4H PRN f/u palliative care consult; will start long acting oxycodone 10mg Q12h here Dysuria Pt complaining of difficult urination, straining On prior CT, tumor burden found near ureter UA: 3+ glucose, 1+ protein f/u Urine culture Tamsulosin 0.4mg PO Daily; with this the dysuria is improved Type 2, Diabetes Mellitus Accuchecks Continue Home med: Lantus 15 units in AM, Humalog 75/25 10 units ACTID Hold Metformin 1000mg PO Daily due to renal function A1C: 7.9 (05/03/16) c/w current management Diffuse B-Cell lymphoma Management per Hem/Onc Hem/Onc: Dr. Machuca, help appreciated - s/p 6 cycle of RCHOP - last day of prednisone 100mg PO given 05/14 - outpatient PET CT scan Palliative Care consult, help appreciated - f/u reccs Dietary Referral, help appreciated - started on heart healthy diet Leukocytosis Pt receiving Neupogen with chemo Nuetrolphils 98%, one band f/u labs Hx of HTN Normotensive in ED Denies currently taking home BP meds, though listed on recent admission Elevated Bun/Cr Believed secondary to chemo patient has had elevated creatinine into the mid 2's in the patient; this is more towards her baseline since chemo Constipation Miralax Q12H Senna-Colace Pruritus Benadryl 25mg PRN Given extra dose (25mg) today Prophylaxis Heparin 5000units SC Q8H Protonix 40mg IV Daily [facility]
[2016-05-15 07:41] LABS: BASO % 0.3 % (0.0-2.0); HEMATOCRIT 28.1 % (34.0-47.0); LYMPH # 0.8 K/uL (1.0-4.3); LYMPH % 14.9 % (20.0-40.0); MEAN CELL VOLUME 85.6 fL (81.0-99.0); MEAN CORPUSCULAR HEMOGLOBIN 29.4 pg (27.0-31.0); MEAN CORPUSCULAR HGB CONC 34.3 g/dL (33.0-37.0); MEAN PLATELET VOLUME 8.2 fL (7.2-11.7); MONO % 0.8 % (0.0-10.0); NRBC % 0.1 % (0.0-2.0); RED CELL DISTRIBUTION WIDTH 17.7 % (11.5-14.5); WHITE BLOOD COUNT 5.2 K/uL (4.8-10.8)
[2016-05-15 08:02] LABS: POTASSIUM 4.3 mmol/L (3.6-5.2)
[2016-05-15 08:04] LABS: ALB/GLOB RATIO 1.2 (1.0-2.1); BILIRUBIN,TOTAL 0.3 mg/dL (0.2-1.3); TOTAL PROTEIN 6.3 g/dL (6.3-8.3)
[2016-05-15 08:05] LABS: CALCIUM 8.7 mg/dl (8.6-10.4); MAGNESIUM 1.9 mg/dL (1.6-2.3); PHOSPHOROUS 3.7 mg/dL (2.5-4.5)
[2016-05-15] MEDS: (Novolog) Insulin Aspart, Recombinant 100 u/ml 10 ml vial SC SCH ×3 (08:30→17:28)
[2016-05-15] MEDS: (Novolin R) Insulin Human Regular 100 units/ml vial SC SCH ×4 (08:30→21:30)
[2016-05-15] MEDS: POLYETHYLENE GLYCOL 3350 17 GM/Dose PACKET PO SCH ×2 (10:55→22:24)
[2016-05-15] MEDS: Docusate-Senna 50 mg-8.6 mg Tab PO SCH ×2 (10:55→17:28)
[2016-05-15] MEDS: oxyCODONE 10 mg ER Tab (oxyCONTIN) PO SCH ×2 (10:55→21:10)
[2016-05-15] MEDS: (Lantus) Insulin Glargine, Recombinant SC SCH (10:56)
[2016-05-15] MEDS: Diphenhydramine 1% Cream (1 oz) TOP SCH (13:11)
--- NOTE | 2016-05-16 00:18 | CP.PCM.PN ---
<Jhonny Scott - Last Filed: 05/16/16 00:16> Subjective - Date & Time of Evaluation Date of Evaluation: 05/16/16 Time of Evaluation: 00:16 - Subjective Subjective: PGY-1 note for medicine service Pt seen and examined at bedside. Pt complains of pain and pruritus. She is once again asking for more Benadryl. She has no other complaints at this time. Denies any fevers, chills, chest pain, nausea or vomiting. Objective - Vital Signs/Intake and Output Vital Signs (last 24 hours): Temp Pulse Resp BP Pulse Ox 98.0 F 87 20 111/68 100 05/15/16 15:00 05/15/16 16:00 05/15/16 15:00 05/15/16 15:00 05/15/16 15:00 - Medications Medications: Current Medications Diphenhydramine HCl (Benadryl) 25 mg IVP Q4H PRN Last Admin: 05/15/16 21:38 Dose: 25 mg Heparin Sodium (Porcine) (Heparin) 5,000 units SC Q8 [facility] Last Admin: 05/15/16 21:37 Dose: 5,000 units Hydromorphone HCl (Dilaudid) 4 mg PO Q4H PRN PRN Reason: Pain, severe (8-10) Last Admin: 05/14/16 08:01 Dose: 4 mg Hydromorphone HCl (Dilaudid) 1 mg IVP Q4H PRN PRN Reason: Pain, severe (8-10) Last Admin: 05/15/16 21:38 Dose: 1 mg Hydroxyzine HCl (Atarax) 25 mg PO DAILY [facility] Last Admin: 05/15/16 13:11 Dose: 25 mg Insulin Aspart (Novolog) 10 unit SC ACTID [facility] Last Admin: 05/15/16 17:28 Dose: 10 unit Insulin Glargine (Lantus) 15 unit SC DAILY [facility] Last Admin: 05/15/16 10:56 Dose: 15 units Insulin Human Regular (Novolin R) 0 unit SC ACHS [facility] PRN Reason: Protocol Last Admin: 05/15/16 21:30 Dose: Not Given Ondansetron HCl (Zofran Inj) 4 mg IVP Q4H PRN PRN Reason: Nausea/Vomiting Oxycodone HCl (Oxycontin Extended Release Tab) 10 mg PO Q12 [facility] Last Admin: 05/15/16 21:10 Dose: Not Given Pantoprazole Sodium (Protonix Inj) 40 mg IVP DAILY [facility] Last Admin: 05/15/16 10:53 Dose: 40 mg Polyethylene Glycol (Miralax) 17 gm PO Q12 [facility] Last Admin: 05/15/16 22:24 Dose: Not Given Senna/Docusate Sodium (Senokot S 50 Mg-8.6 Mg) 1 tab PO BID [facility] Last Admin: 05/15/16 17:28 Dose: 1 tab Tamsulosin HCl (Flomax) 0.4 mg PO DAILY [facility] Last Admin: 05/15/16 10:55 Dose: 0.4 mg Zinc Acetate/Diphenhydramine (Benadryl 1% Zinc Acetate -0.1%) 0 cre TOP DAILY [facility] Last Admin: 05/15/16 13:11 Dose: 1 applic - Constitutional Appears: Non-toxic, No Acute Distress, Chronically Ill - Head Exam Head Exam: ATRAUMATIC, NORMOCEPHALIC - Eye Exam Eye Exam: Normal appearance Pupil Exam: PERRL - ENT Exam ENT Exam: Mucous Membranes Moist - Respiratory Exam Respiratory Exam: Clear to Ausculation Bilateral, NORMAL BREATHING PATTERN - Cardiovascular Exam Cardiovascular Exam: +S1, +S2 - GI/Abdominal Exam GI & Abdominal Exam: Soft, Tenderness, Normal Bowel Sounds - Extremities Exam Extremities Exam: Normal Capillary Refill, Normal Inspection - Back Exam Back Exam: NORMAL INSPECTION, tenderness (over lower back) - Neurological Exam Neurological Exam: Alert, Awake - Skin Skin Exam: Dry, Warm Assessment and Plan - Assessment and Plan (Free Text) Assessment: Body aches Secondary to tumor burden/chemo Dilaudid 4mg PO Q4H PRN Benadryl 25mg IV Q4H PRN Flu neg f/u palliative care consult for pain management will start long acting Oxycodone 10mg Q12 here Abdominal Pain Secondary to tumor burden/chemo History of colostomy, then reversal Zofran 4mg IVP Q6 PRN Dilaudid 4mg PO Q4H PRN Benadryl 25mg IV Q4H PRN f/u palliative care consult; will start long acting oxycodone 10mg Q12h here Dysuria Pt complaining of difficult urination, straining On prior CT, tumor burden found near ureter UA: 3+ glucose, 1+ protein Urine culture multiple species, probable contamination Tamsulosin 0.4mg PO Daily; with this the dysuria is improved Type 2, Diabetes Mellitus Accuchecks Continue Home med: Lantus 15 units in AM, Humalog 75/25 10 units ACTID Hold Metformin 1000mg PO Daily due to renal function A1C: 7.9 (05/03/16) c/w current management Diffuse B-Cell lymphoma Management per Hem/Onc Hem/Onc: Dr. Machuca, help appreciated - s/p 6 cycle of RCHOP - last day of prednisone 100mg PO given 05/14 - outpatient PET CT scan Palliative Care consult, help appreciated - f/u reccs Dietary Referral, help appreciated - started on heart healthy diet Leukocytosis Pt receiving Neupogen with chemo Nuetrolphils 98%, one band f/u labs Hx of HTN Normotensive in ED Denies currently taking home BP meds, though listed on recent admission Elevated Bun/Cr Believed secondary to chemo patient has had elevated creatinine into the mid 2's in the patient; this is more towards her baseline since chemo Constipation Miralax Q12H Senna-Colace Pruritus Benadryl 25mg PRN Prophylaxis Heparin 5000units SC Q8H Protonix 40mg IV Daily [facility] <Chaka Sheffield - Last Filed: 05/16/16 17:14> Objective - Vital Signs/Intake and Output Vital Signs (last 24 hours): Temp Pulse Resp BP Pulse Ox 98.2 F 95 H 20 125/73 96 05/16/16 15:33 05/16/16 15:33 05/16/16 15:33 05/16/16 15:33 05/16/16 15:33 Intake and Output: 05/16/16 05/16/16 06:59 18:59 Intake Total 400 Balance 400 - Medications Medications: Current Medications Diphenhydramine HCl (Benadryl) 25 mg IVP Q4H PRN Last Admin: 05/16/16 16:18 Dose: 25 mg Heparin Sodium (Porcine) (Heparin) 5,000 units SC Q8 [facility] Last Admin: 05/16/16 14:38 Dose: 5,000 units Hydromorphone HCl (Dilaudid) 4 mg PO Q4H PRN PRN Reason: Pain, severe (8-10) Last Admin: 05/14/16 08:01 Dose: 4 mg Hydromorphone HCl (Dilaudid) 1 mg IVP Q4H PRN PRN Reason: Pain, severe (8-10) Last Admin: 05/16/16 16:19 Dose: 1 mg Hydroxyzine HCl (Atarax) 25 mg PO DAILY [facility] Last Admin: 05/16/16 10:28 Dose: 25 mg Insulin Aspart (Novolog) 10 unit SC ACTID [facility] Last Admin: 05/16/16 12:23 Dose: 10 unit Insulin Glargine (Lantus) 15 unit SC DAILY [facility] Last Admin: 05/16/16 10:29 Dose: 15 units Insulin Human Regular (Novolin R) 0 unit SC ACHS [facility] PRN Reason: Protocol Last Admin: 05/16/16 12:24 Dose: 4 unit Ondansetron HCl (Zofran Inj) 4 mg IVP Q4H PRN PRN Reason: Nausea/Vomiting Oxycodone HCl (Oxycontin Extended Release Tab) 10 mg PO Q12 [facility] Last Admin: 05/16/16 10:28 Dose: 10 mg Pantoprazole Sodium (Protonix Inj) 40 mg IVP DAILY [facility] Last Admin: 05/16/16 10:26 Dose: 40 mg Polyethylene Glycol (Miralax) 17 gm PO Q12 [facility] Last Admin: 05/16/16 10:29 Dose: 17 gm Senna/Docusate Sodium (Senokot S 50 Mg-8.6 Mg) 1 tab PO BID [facility] Last Admin: 05/16/16 10:28 Dose: 1 tab Tamsulosin HCl (Flomax) 0.4 mg PO DAILY [facility] Last Admin: 05/16/16 10:28 Dose: 0.4 mg Zinc Acetate/Diphenhydramine (Benadryl 1% Zinc Acetate -0.1%) 0 cre TOP DAILY [facility] Last Admin: 05/16/16 10:29 Dose: 1 applic - Labs Labs: 05/16/16 07:06 05/16/16 07:06 Attending/Attestation - Attestation I have personally seen and examined this patient.: Yes I have fully participated in the care of the patient.: Yes I have reviewed all pertinent clinical information, including history, physical exam and plan: Yes Notes (Text): Patient with diffuse large B-cell lymphoma, undergoing chemo, DM, admitted with intractable chronic R flank and abd pain; Reports pain in unchanged; also reporting frontal headache with pain involving bilateral eyes, denies change in vision; Patient started on oxycodone ER 10 mg q12h on 05/14; refused dose last night; was advised today not to miss long acting opiate; will increase dose to 20 mg and continue prn dilaudid; Etiology of pain still unclear; flomax started for possible ureteral stone ( although not visualized on imaging); renal lasix scan ordered for tomorrow to assess for functional R ureteral/renal obstrtuction; Progressively worsening neutropenia with ANC today 600; afebrile; discussed with heme who recommended neupogen; DM better controlled after steroids stopped; Dispo: Can be discharged once pain better controlled and neutropenia improves. 05/16/16 17:07
[2016-05-16] MEDS: DiphenhydrAMINE 50 mg/ml Inj IVP PRN ×5 (01:40→20:36)
[2016-05-16] MEDS: HYDROmorphone 1 mg/ml ISec IVP PRN ×5 (01:40→20:36)
--- NOTE | 2016-05-16 03:08 | CP.PCM.PN ---
Subjective - Date & Time of Evaluation Date of Evaluation: 05/15/16 Time of Evaluation: 17:00 - Subjective Subjective: Has flank pain Objective - Vital Signs/Intake and Output Vital Signs (last 24 hours): Temp Pulse Resp BP Pulse Ox 98.1 F 79 20 138/76 97 05/16/16 01:37 05/16/16 01:37 05/16/16 01:37 05/16/16 01:37 05/16/16 01:37 - Medications Medications: Current Medications Diphenhydramine HCl (Benadryl) 25 mg IVP Q4H PRN Last Admin: 05/16/16 01:40 Dose: 25 mg Heparin Sodium (Porcine) (Heparin) 5,000 units SC Q8 [facility] Last Admin: 05/15/16 21:37 Dose: 5,000 units Hydromorphone HCl (Dilaudid) 4 mg PO Q4H PRN PRN Reason: Pain, severe (8-10) Last Admin: 05/14/16 08:01 Dose: 4 mg Hydromorphone HCl (Dilaudid) 1 mg IVP Q4H PRN PRN Reason: Pain, severe (8-10) Last Admin: 05/16/16 01:40 Dose: 1 mg Hydroxyzine HCl (Atarax) 25 mg PO DAILY [facility] Last Admin: 05/15/16 13:11 Dose: 25 mg Insulin Aspart (Novolog) 10 unit SC ACTID [facility] Last Admin: 05/15/16 17:28 Dose: 10 unit Insulin Glargine (Lantus) 15 unit SC DAILY [facility] Last Admin: 05/15/16 10:56 Dose: 15 units Insulin Human Regular (Novolin R) 0 unit SC ACHS [facility] PRN Reason: Protocol Last Admin: 05/15/16 21:30 Dose: Not Given Ondansetron HCl (Zofran Inj) 4 mg IVP Q4H PRN PRN Reason: Nausea/Vomiting Oxycodone HCl (Oxycontin Extended Release Tab) 10 mg PO Q12 [facility] Last Admin: 05/15/16 21:10 Dose: Not Given Pantoprazole Sodium (Protonix Inj) 40 mg IVP DAILY [facility] Last Admin: 05/15/16 10:53 Dose: 40 mg Polyethylene Glycol (Miralax) 17 gm PO Q12 [facility] Last Admin: 05/15/16 22:24 Dose: Not Given Senna/Docusate Sodium (Senokot S 50 Mg-8.6 Mg) 1 tab PO BID [facility] Last Admin: 05/15/16 17:28 Dose: 1 tab Tamsulosin HCl (Flomax) 0.4 mg PO DAILY [facility] Last Admin: 05/15/16 10:55 Dose: 0.4 mg Zinc Acetate/Diphenhydramine (Benadryl 1% Zinc Acetate -0.1%) 0 cre TOP DAILY [facility] Last Admin: 05/15/16 13:11 Dose: 1 applic - Head Exam Head Exam: ATRAUMATIC - Eye Exam Eye Exam: Normal appearance - ENT Exam ENT Exam: Mucous Membranes Dry - Respiratory Exam Respiratory Exam: NORMAL BREATHING PATTERN - Cardiovascular Exam Cardiovascular Exam: +S1, +S2 - GI/Abdominal Exam GI & Abdominal Exam: Normal Bowel Sounds - Extremities Exam Extremities Exam: Normal Inspection Assessment and Plan (1) Intractable pain Assessment & Plan: narcotic pain meds, bowel regimen pain management Status: Acute (2) Anemia Assessment & Plan: anemia of chemotherapy Status: Acute (3) Diffuse large B cell lymphoma Assessment & Plan: s/p chemotherapy Status: Acute
[2016-05-16 07:23] LABS: LYMPH # 0.8 K/uL (1.0-4.3)
[2016-05-16 07:26] LABS: POTASSIUM 4.5 mmol/L (3.6-5.2)
[2016-05-16 07:29] LABS: BILIRUBIN,TOTAL 0.3 mg/dL (0.2-1.3); CALCIUM 8.6 mg/dl (8.6-10.4); MAGNESIUM 1.9 mg/dL (1.6-2.3); PHOSPHOROUS 4.5 mg/dL (2.5-4.5); TOTAL PROTEIN 6.2 g/dL (6.3-8.3)
[2016-05-16 07:34] LABS: BASO % 1.9 % (0.0-2.0); EOS % 1.2 % (0.0-4.0); HEMATOCRIT 29.4 % (34.0-47.0); LYMPH % 54.7 % (20.0-40.0); MEAN CELL VOLUME 85.2 fL (81.0-99.0); MEAN CORPUSCULAR HEMOGLOBIN 29.6 pg (27.0-31.0); MEAN CORPUSCULAR HGB CONC 34.7 g/dL (33.0-37.0); MONO % 2.1 % (0.0-10.0); NRBC % 0.1 % (0.0-2.0); RED CELL DISTRIBUTION WIDTH 17.8 % (11.5-14.5)
[2016-05-16 07:38] LABS: ALB/GLOB RATIO 1.1 (1.0-2.1)
[2016-05-16 07:39] LABS: WHITE BLOOD COUNT 1.5 K/uL (4.8-10.8)
[2016-05-16] MEDS: (Novolog) Insulin Aspart, Recombinant 100 u/ml 10 ml vial SC SCH ×3 (08:30→17:15)
[2016-05-16] MEDS: (Novolin R) Insulin Human Regular 100 units/ml vial SC SCH ×4 (08:30→21:36)
[2016-05-16] MEDS: Docusate-Senna 50 mg-8.6 mg Tab PO SCH ×2 (10:28→20:38)
[2016-05-16] MEDS: oxyCODONE 10 mg ER Tab (oxyCONTIN) PO SCH ×2 (10:28→21:33)
[2016-05-16] MEDS: POLYETHYLENE GLYCOL 3350 17 GM/Dose PACKET PO SCH ×2 (10:29→21:32)
[2016-05-16] MEDS: Diphenhydramine 1% Cream (1 oz) TOP SCH (10:29)
[2016-05-16] MEDS: (Lantus) Insulin Glargine, Recombinant SC SCH (10:29)
[2016-05-17] MEDS: DiphenhydrAMINE 50 mg/ml Inj IVP PRN ×6 (00:40→21:12)
[2016-05-17] MEDS: HYDROmorphone 1 mg/ml ISec IVP PRN ×6 (00:40→21:12)
[2016-05-17 07:50] LABS: EOS % 1.2 % (0.0-4.0); LYMPH # 0.9 K/uL (1.0-4.3); LYMPH % 28.8 % (20.0-40.0); MEAN CORPUSCULAR HGB CONC 34.4 g/dL (33.0-37.0); MONO # 0.1 K/uL (0.0-0.8)
[2016-05-17 08:02] LABS: BASO % 0.7 % (0.0-2.0); HEMATOCRIT 29.5 % (34.0-47.0); MEAN CORPUSCULAR HEMOGLOBIN 29.6 pg (27.0-31.0); MEAN PLATELET VOLUME 8.4 fL (7.2-11.7); MONO % 3.2 % (0.0-10.0); NRBC % 0.1 % (0.0-2.0); RED CELL DISTRIBUTION WIDTH 17.2 % (11.5-14.5)
[2016-05-17 08:05] LABS: WHITE BLOOD COUNT 3.2 K/uL (4.8-10.8)
[2016-05-17] MEDS: (Novolin R) Insulin Human Regular 100 units/ml vial SC SCH ×3 (08:07→17:23)
[2016-05-17] MEDS: (Novolog) Insulin Aspart, Recombinant 100 u/ml 10 ml vial SC SCH ×3 (08:07→17:22)
[2016-05-17 08:11] LABS: POTASSIUM 4.5 mmol/L (3.6-5.2)
[2016-05-17 08:13] LABS: BILIRUBIN,TOTAL 0.6 mg/dL (0.2-1.3); TOTAL PROTEIN 6.6 g/dL (6.3-8.3)
[2016-05-17 08:14] LABS: CALCIUM 8.9 mg/dl (8.6-10.4); MAGNESIUM 1.9 mg/dL (1.6-2.3); PHOSPHOROUS 3.6 mg/dL (2.5-4.5)
[2016-05-17] MEDS: oxyCODONE 10 mg ER Tab (oxyCONTIN) PO SCH (09:00)
[2016-05-17] MEDS: Diphenhydramine 1% Cream (1 oz) TOP SCH (11:37)
[2016-05-17] MEDS: POLYETHYLENE GLYCOL 3350 17 GM/Dose PACKET PO SCH ×2 (11:38→21:27)
[2016-05-17] MEDS: (Lantus) Insulin Glargine, Recombinant SC SCH (11:39)
[2016-05-17] MEDS: Docusate-Senna 50 mg-8.6 mg Tab PO SCH ×2 (11:43→17:20)
--- NOTE | 2016-05-17 13:33 | NM ---
PROCEDURE: Renal scan and flow study with Lasix HISTORY: Persistent R flank/groin pain, lymphadenopathy COMPARISON: 01/06/[address] scan. TECHNIQUE: 21.3 mCi technetium 99 M DTPA administered intravenously. 40 mg Lasix administered intravenously at frame 20/20 minutes following the initiation of this study. FINDINGS: Right Kidney: Flow component: Normal Time to peak: 1.5 minutes Peak to T1/2 Peak: 22 minutes Normal clearance following intravenous administration of diuretic. T1 half pre Lasix 19 minutes. T1 half post Lasix 41 minutes. Left Kidney: Flow component: Normal Time to peak: 2.5 minutes Peak to T1/2 Peak: 16 minutes. Normal clearance following administration of diuretic. T1 half pre Lasix 17 minutes. T1 half post Lasix 57 minutes. Split Renal Function: Right kidney 49 % Left kidney 51 % IMPRESSION: 1. Normal renal scan and flow study bilaterally. 2. No evidence of obstructive uropathy. 3. Approximately symmetrical renal function 49% right kidney, 51% left kidney.
--- NOTE | 2016-05-17 14:56 | CP.PCM.PN ---
<Johnny Scott - Last Filed: 05/17/16 14:53> Subjective - Date & Time of Evaluation Date of Evaluation: 05/17/16 Time of Evaluation: 14:53 - Subjective Subjective: PGY-1 note for medicine service Pt seen and examined at bedside. Pt continues to complain of pain. Pt however, also noted to have refused her long acting pain meds at times. Pt has no other complaints. Denies fevers, chills, chest pain, palpitations, nausea or vomiting. Objective - Vital Signs/Intake and Output Vital Signs (last 24 hours): Temp Pulse Resp BP Pulse Ox 98.6 F 94 H 20 134/85 96 05/17/16 07:59 05/17/16 12:10 05/17/16 07:59 05/17/16 07:59 05/17/16 07:59 Intake and Output: 05/17/16 05/17/16 06:59 18:59 Intake Total 350 Balance 350 - Medications Medications: Current Medications Diphenhydramine HCl (Benadryl) 25 mg IVP Q4H PRN Last Admin: 05/17/16 13:13 Dose: 25 mg Hydromorphone HCl (Dilaudid) 4 mg PO Q4H PRN PRN Reason: Pain, severe (8-10) Last Admin: 05/14/16 08:01 Dose: 4 mg Hydromorphone HCl (Dilaudid) 1 mg IVP Q4H PRN PRN Reason: Pain, severe (8-10) Last Admin: 05/17/16 13:13 Dose: 1 mg Hydroxyzine HCl (Atarax) 25 mg PO DAILY [facility] Last Admin: 05/17/16 11:45 Dose: 25 mg Insulin Aspart (Novolog) 10 unit SC ACTID [facility] Last Admin: 05/17/16 13:08 Dose: Not Given Insulin Glargine (Lantus) 15 unit SC DAILY [facility] Last Admin: 05/17/16 11:39 Dose: 15 units Insulin Human Regular (Novolin R) 0 unit SC ACHS [facility] PRN Reason: Protocol Last Admin: 05/17/16 13:08 Dose: Not Given Ondansetron HCl (Zofran Inj) 4 mg IVP Q4H PRN PRN Reason: Nausea/Vomiting Last Admin: 05/17/16 05:07 Dose: 4 mg Oxycodone HCl (Oxycontin Extended Release Tab) 20 mg PO Q12 [facility] Pantoprazole Sodium (Protonix Inj) 40 mg IVP DAILY [facility] Last Admin: 05/17/16 11:38 Dose: 40 mg Polyethylene Glycol (Miralax) 17 gm PO Q12 [facility] Last Admin: 05/17/16 11:38 Dose: 17 gm Senna/Docusate Sodium (Senokot S 50 Mg-8.6 Mg) 1 tab PO BID [facility] Last Admin: 05/17/16 11:43 Dose: 1 tab Tamsulosin HCl (Flomax) 0.4 mg PO DAILY [facility] Last Admin: 05/17/16 11:39 Dose: 0.4 mg Zinc Acetate/Diphenhydramine (Benadryl 1% Zinc Acetate -0.1%) 0 cre TOP DAILY [facility] Last Admin: 05/17/16 11:37 Dose: 1 applic - Labs Labs: 05/17/16 07:26 05/17/16 07:26 - Constitutional Appears: Non-toxic, Chronically Ill - Head Exam Head Exam: ATRAUMATIC, NORMOCEPHALIC - Eye Exam Eye Exam: Normal appearance Pupil Exam: PERRL - ENT Exam ENT Exam: Mucous Membranes Moist - Respiratory Exam Respiratory Exam: Clear to Ausculation Bilateral, NORMAL BREATHING PATTERN - Cardiovascular Exam Cardiovascular Exam: +S1, +S2 - GI/Abdominal Exam GI & Abdominal Exam: Soft, Tenderness (along lower abdomen), Normal Bowel Sounds - Extremities Exam Extremities Exam: Normal Capillary Refill, Normal Inspection - Neurological Exam Neurological Exam: Alert, Awake - Skin Skin Exam: Dry, Warm Assessment and Plan - Assessment and Plan (Free Text) Assessment: Body aches - Secondary to tumor burden/chemo - Dilaudid 4mg PO Q4H PRN - Benadryl 25mg IV Q4H PRN - Flu neg - f/u palliative care consult for pain management - will change long acting Oxycodone 10mg Q12 - Palliative not able to see pt yet, will consult anesthesia ([facility]y) for pain management - Per anesthesia - recommends current management as pt is not fully utilizing her PRN meds with her scheduled long acting pain meds. If pain persists, another option outpatient would be a plexus block. Abdominal Pain - Secondary to tumor burden/chemo - History of colostomy, then reversal - Zofran 4mg IVP Q6 PRN - Dilaudid 4mg PO Q4H PRN - Benadryl 25mg IV Q4H PRN - Oxycodone 10mg Q12 - f/u palliative care consult - Anesthesia consult (Casey) for pain management - recommends current management as pt is not fully utilizing her PRN meds with her scheduled long acting pain meds. If pain persists, another option outpatient would be a plexus block. Dysuria - Pt complaining of difficult urination, straining - On prior CT, tumor burden found near ureter - UA: 3+ glucose, 1+ protein - Urine culture multiple species, probable contamination. Will repeat today () - f/u - Tamsulosin 0.4mg PO Daily; with this the dysuria is improved Type 2, Diabetes Mellitus - Accuchecks - Continue Home med: Lantus 15 units in AM, Humalog 75/25 10 units ACTID - Hold Metformin 1000mg PO Daily due to renal function - A1C: 7.9 (05/03/16) - c/w current management Diffuse B-Cell lymphoma - Management per Hem/Onc - Hem/Onc: Dr. Machuca, help appreciated - s/p 6 cycle of RCHOP - last day of prednisone 100mg PO given 05/14 - outpatient PET CT scan Palliative Care consult, help appreciated - f/u reccs Dietary Referral, help appreciated - started on heart healthy diet Leukopenia - Pt received one dose of neupogen - WBC increased to 3.2 from 1.5 - f/u labs Hx of HTN - Normotensive in ED - Denies currently taking home BP meds, though listed on recent admission Elevated Bun/Cr - Believed secondary to chemo - patient has had elevated creatinine into the mid 2's in the patient; this is more towards her baseline since chemo Constipation - Miralax Q12H - Senna-Colace Pruritus - Benadryl 25mg PRN Prophylaxis - Heparin 5000units SC Q8H - Protonix 40mg IV Daily - SCDs <Ping Herrera V - Last Filed: 05/17/16 19:43> Objective - Vital Signs/Intake and Output Vital Signs (last 24 hours): Temp Pulse Resp BP Pulse Ox 98 F 102 H 20 107/72 99 05/17/16 16:00 05/17/16 16:00 05/17/16 16:00 05/17/16 16:00 05/17/16 16:00 Intake and Output: 05/17/16 05/18/16 18:59 06:59 Intake Total 350 Balance 350 - Medications Medications: Current Medications Diphenhydramine HCl (Benadryl) 25 mg IVP Q4H PRN Last Admin: 05/17/16 17:14 Dose: 25 mg Hydromorphone HCl (Dilaudid) 4 mg PO Q4H PRN PRN Reason: Pain, severe (8-10) Last Admin: 05/14/16 08:01 Dose: 4 mg Hydromorphone HCl (Dilaudid) 1 mg IVP Q4H PRN PRN Reason: Pain, severe (8-10) Last Admin: 05/17/16 17:13 Dose: 1 mg Hydroxyzine HCl (Atarax) 25 mg PO DAILY [facility] Last Admin: 05/17/16 11:45 Dose: 25 mg Insulin Aspart (Novolog) 10 unit SC ACTID [facility] Last Admin: 05/17/16 17:22 Dose: 10 unit Insulin Glargine (Lantus) 15 unit SC DAILY [facility] Last Admin: 05/17/16 11:39 Dose: 15 units Insulin Human Regular (Novolin R) 0 unit SC ACHS [facility] PRN Reason: Protocol Last Admin: 05/17/16 17:23 Dose: 8 unit Ondansetron HCl (Zofran Inj) 4 mg IVP Q4H PRN PRN Reason: Nausea/Vomiting Last Admin: 05/17/16 05:07 Dose: 4 mg Oxycodone HCl (Oxycontin Extended Release Tab) 20 mg PO Q12 [facility] Pantoprazole Sodium (Protonix Inj) 40 mg IVP DAILY [facility] Last Admin: 05/17/16 11:38 Dose: 40 mg Polyethylene Glycol (Miralax) 17 gm PO Q12 [facility] Last Admin: 05/17/16 11:38 Dose: 17 gm Senna/Docusate Sodium (Senokot S 50 Mg-8.6 Mg) 1 tab PO BID [facility] Last Admin: 05/17/16 17:20 Dose: 1 tab Tamsulosin HCl (Flomax) 0.4 mg PO DAILY [facility] Last Admin: 05/17/16 11:39 Dose: 0.4 mg Zinc Acetate/Diphenhydramine (Benadryl 1% Zinc Acetate -0.1%) 0 cre TOP DAILY [facility] Last Admin: 05/17/16 11:37 Dose: 1 applic - Labs Labs: 05/17/16 07:26 05/17/16 07:26 Attending/Attestation - Attestation I have personally seen and examined this patient.: Yes I have fully participated in the care of the patient.: Yes I have reviewed all pertinent clinical information, including history, physical exam and plan: Yes Notes (Text): Patient seen, examined and case discussed with day-time resident. Patient reports continued right flank pain. Patient is not taking her long acting opiate as prescribed. Patient is asking for higher dosage of Benadryl because the itchiness keeps her up at the night, and she visually scratching herself. Patient reports persistent right abdominal/flank pain; tender to palpation on examination; advised resident to order for urine studies given prior hx of ESBL + UTI. White count mildly improved after neuopen Renal Lasix scan: normal, no obstructive uropathy, symmetical kidney function Pallative consult-->not available on vacation for 2 weeks Anesthesia consulted for pain management-->recommends patient to continue current medications since not using PRN medications appropriately Consult GI-->patient has mildly dilated CBD 1.0 cm which was increased from 7- 8mm CBD s/p cholecystectomy to rule out other causes of abdominal pain for the patient.
--- NOTE | 2016-05-17 15:36 | US ---
HISTORY: abdominal pain COMPARISON: Abdominal ultrasound performed 04/30/16 TECHNIQUE: Sonographic evaluation of the abdomen. FINDINGS: LIVER: Measures 18.0 cm in sagittal dimension. Echogenic liver may be seen in setting of hepatic parenchymal disease or fatty infiltration. No focal hepatic mass identified. The main portal vein appears patent with normal directional flow. No intrahepatic bile duct dilatation. GALLBLADDER: Cholecystectomy. COMMON BILE DUCT: Measures 1.1 cm. PANCREAS: Not well visualized. Suspect 0.9 cm lymph node adjacent to the pancreatic head. RIGHT KIDNEY: Measures 10.2 x 3.9 x 4.9cm. Upper pole renal cyst measures approximately 1.8 x 2.1 x 1.9 cm. No obstructing calculus or hydronephrosis identified. Echogenic renal parenchyma. LEFT KIDNEY: Measures 10.0 x 5.3 x 5.2 cm. No obstructing calculus or hydronephrosis identified. Echogenic renal parenchyma. SPLEEN: Measures approximately 11.1 cm. AORTA: Limited views appear unremarkable. IVC: Limited views appear unremarkable. OTHER FINDINGS: None. IMPRESSION: Echogenic liver may be seen in setting of hepatic parenchymal disease or fatty infiltration. Dilated common bile duct measuring approximately 1.1 cm in the setting of cholecystectomy. Suspect 0.9 cm lymph node near the pancreatic head. Please note the pancreas is not well visualized. Right upper pole renal cyst measuring approximately 1.8 x 2.1 x 1.9 cm. Bilateral echogenic renal parenchyma may be seen in the setting of medical renal disease.
--- NOTE | 2016-05-17 19:23 | CP.PCM.CON ---
History of Present Illness - History of Present Illness History of Present Illness: Reason for consult: dilated CBD CC: flank pain HPI: This is a 50 yo female with PMHx significant for HTN, DM, GERD, chronic flank pain, diffuse large B cell lymphoma s/p 6 cycles RCHOP, toxic megalon/colitis s/ p transverse colostomy with reversal who is admitted with chronic right flank pain. The patient states that the flank pain has been occuring for the past 1 year, usually treated with narcotics at home (dilaudid). The pain is described as constant, sometimes 8-9/10 in intensity and radiates to R groin. She reports constipation associated with narcotic usage, last BM 3-4 days ago. She gets occasional nausea without vomiting. She is able to tolerate diet without difficulty. Abdominal ultrasound showed dilated CBD 1.1 cm (she is s/p cholecystectomy), which has been seen on previous abdominal images. PMHx/PSHx: as above Medications: insulin, pantoprazole, dilaudid 4mg PO PRN, dilaudid 1mg IV PRN, colace/miralax, benadryl Allergies: PCN, morphine FH: denies history of GI malignancy; father with stroke SH: previous tobacco (none currently), ETOH or illicits Review of Systems - Constitutional Constitutional: absent: Chills, Fever - Cardiovascular Cardiovascular: absent: Chest Pain - Respiratory Respiratory: absent: Cough, Dyspnea - Gastrointestinal Gastrointestinal: As Per HPI - Genitourinary Genitourinary: Dysuria - Musculoskeletal Musculoskeletal: Myalgias, Neck Pain - Integumentary Integumentary: absent: Rash - Neurological Neurological: Weakness. absent: Dizziness Past Patient History - Infectious Disease Hx of Infectious Diseases: None - Past Medical History & Family History Past Medical History?: Yes - Past Social History Smoking Status: Never Smoked - CARDIAC Hx Hypertension: Yes - PULMONARY Hx Respiratory Disorders: No - NEUROLOGICAL Hx Neurological Disorder: No - HEENT Hx HEENT Problems: No - RENAL Hx Chronic Kidney Disease: No - ENDOCRINE/METABOLIC Hx Diabetes Mellitus Type 2: Yes - HEMATOLOGICAL/ONCOLOGICAL Hx Blood Transfusions: Yes (04/26) Hx Cancer: Yes Other/Comment: stomach, lung, liver. - INTEGUMENTARY Hx Dermatological Problems: No - MUSCULOSKELETAL/RHEUMATOLOGICAL Hx Falls: No - GASTROINTESTINAL Hx Gall Bladder Disease: Yes (cholecystectomy 3 yrs. ago) Hx Pancreatitis: Yes - GENITOURINARY/GYNECOLOGICAL Hx Genitourinary Disorders: No - PSYCHIATRIC Hx Anxiety: Yes Hx Substance Use: No - SURGICAL HISTORY Hx Cholecystectomy: Yes - ANESTHESIA Hx Anesthesia: Yes Hx Anesthesia Reactions: No Hx Malignant Hyperthermia: No Meds Allergies/Adverse Reactions: Allergies Allergy/AdvReac Type Severity Reaction Status Date / Time Penicillins Allergy Verified 05/13/16 14:42 morphine AdvReac ITCHING Verified 05/13/16 14:42 - Medications Medications: Current Medications Diphenhydramine HCl (Benadryl) 25 mg IVP Q4H PRN Last Admin: 05/17/16 17:14 Dose: 25 mg Hydromorphone HCl (Dilaudid) 4 mg PO Q4H PRN PRN Reason: Pain, severe (8-10) Last Admin: 05/14/16 08:01 Dose: 4 mg Hydromorphone HCl (Dilaudid) 1 mg IVP Q4H PRN PRN Reason: Pain, severe (8-10) Last Admin: 05/17/16 17:13 Dose: 1 mg Hydroxyzine HCl (Atarax) 25 mg PO DAILY [facility] Last Admin: 05/17/16 11:45 Dose: 25 mg Insulin Aspart (Novolog) 10 unit SC ACTID [facility] Last Admin: 05/17/16 17:22 Dose: 10 unit Insulin Glargine (Lantus) 15 unit SC DAILY [facility] Last Admin: 05/17/16 11:39 Dose: 15 units Insulin Human Regular (Novolin R) 0 unit SC ACHS [facility] PRN Reason: Protocol Last Admin: 05/17/16 17:23 Dose: 8 unit Ondansetron HCl (Zofran Inj) 4 mg IVP Q4H PRN PRN Reason: Nausea/Vomiting Last Admin: 05/17/16 05:07 Dose: 4 mg Oxycodone HCl (Oxycontin Extended Release Tab) 20 mg PO Q12 [facility] Pantoprazole Sodium (Protonix Inj) 40 mg IVP DAILY [facility] Last Admin: 05/17/16 11:38 Dose: 40 mg Polyethylene Glycol (Miralax) 17 gm PO Q12 [facility] Last Admin: 05/17/16 11:38 Dose: 17 gm Senna/Docusate Sodium (Senokot S 50 Mg-8.6 Mg) 1 tab PO BID [facility] Last Admin: 05/17/16 17:20 Dose: 1 tab Tamsulosin HCl (Flomax) 0.4 mg PO DAILY [facility] Last Admin: 05/17/16 11:39 Dose: 0.4 mg Zinc Acetate/Diphenhydramine (Benadryl 1% Zinc Acetate -0.1%) 0 cre TOP DAILY [facility] Last Admin: 05/17/16 11:37 Dose: 1 applic Physical Exam - Constitutional Appears: No Acute Distress Additional comments: +alopecia - Eye Exam Eye Exam: absent: Scleral icterus - ENT Exam ENT Exam: Mucous Membranes Moist - Respiratory Exam Respiratory Exam: Clear to Auscultation Bilateral - Cardiovascular Exam Cardiovascular Exam: +S1, +S2 - GI/Abdominal Exam Additional comments: abdomen with multiple healed surgical scars, distended but soft, bowel sounds present, mild diffuse TTP withotu rebound or guarding - Extremities Exam Extremities exam: Negative for: pedal edema - Neurological Exam Neurological exam: Alert, Oriented x3 - Skin Skin Exam: Dry Results - Vital Signs Recent Vital Signs: Last Vital Signs Temp 98 F 05/17/16 16:00 Pulse 102 H 05/17/16 16:00 Resp 20 05/17/16 16:00 BP 107/72 05/17/16 16:00 Pulse Ox 99 05/17/16 16:00 - Labs Result Diagrams: 05/17/16 07:26 05/17/16 07:26 Labs: Laboratory Results - last 24 hr 05/16/16 05/16/16 05/17/16 07:06 21:22 07:14 WBC RBC Hgb Hct MCV MCH MCHC RDW Plt Count MPV Neut % (Auto) Lymph % (Auto) [place] % (Auto) Eos % (Auto) Baso % (Auto) Neut # Lymph # [place] # Eos # Baso # Smear Path Review Sodium Potassium Chloride Carbon Dioxide Anion Gap BUN Creatinine Est GFR ( Amer) Est GFR (Non-Af Amer) POC Glucose (mg/dL) 243 H 232 H Random Glucose Calcium Phosphorus Magnesium Total Bilirubin AST ALT Alkaline Phosphatase Total Protein Albumin Globulin Albumin/Globulin Ratio 05/17/16 05/17/16 05/17/16 07:26 11:30 16:09 WBC 3.2 L D RBC 3.43 L Hgb 10.1 L Hct 29.5 L MCV 86.0 MCH 29.6 MCHC 34.4 RDW 17.2 H Plt Count 166 MPV 8.4 Neut % (Auto) 66.1 Lymph % (Auto) 28.8 [place] % (Auto) 3.2 Eos % (Auto) 1.2 Baso % (Auto) 0.7 Neut # 2.1 Lymph # 0.9 L [place] # 0.1 Eos # 0.0 Baso # 0.0 Smear Path Review Sodium 135 Potassium 4.5 Chloride 91 L Carbon Dioxide 31 H Anion Gap 18 BUN 38 H Creatinine 1.5 H Est GFR ( Amer) 44 Est GFR (Non-Af Amer) 37 POC Glucose (mg/dL) 230 H 308 H Random Glucose 220 H Calcium 8.9 Phosphorus 3.6 Magnesium 1.9 Total Bilirubin 0.6 AST 20 ALT 26 Alkaline Phosphatase 71 Total Protein 6.6 Albumin 3.3 L Globulin 3.3 Albumin/Globulin Ratio 1.0 Assessment & Plan - Assessment and Plan (Free Text) Assessment: This is a 50 yo female with PMHx significant for HTN, DM, GERD, chronic flank pain, diffuse large B cell lymphoma s/p 6 cycles RCHOP, 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 She has chronically dilated CBD in setting of cholecystectomy (and narcotic usage), which is unlikely related to her current presentation. Her LFTs are normal. She also chronic constipation, likely opiate induced. Plan: Continue supportive care Obtain MRCP for further evaluation of dilated CBD Monitor LFTs Pain control as per primary medical team Continue aggressive bowel regimen Obtain abdominal XR May need relistor if no improvement and outpatient therapy with lubiprostone/ movantik given chronic narcotic usage Further management as per primary medical team/oncology Will continue to follow and make recommendations depending on clinical course
--- NOTE | 2016-05-17 23:21 | CP.PCM.CON ---
History of Present Illness - History of Present Illness History of Present Illness: 50 y/o PMH B cell lymphoma, HTN, GERD, DM here with chronic right flank radiating to right groin (normal renal scan/no evidence obstruction). She describes pain as chronic, constant dull/achey pain 10/10 at its worst. She states hydromorphone helps the pain but pain often comes back before her next PRN dose. Past Patient History - Infectious Disease Hx of Infectious Diseases: None - Past Medical History & Family History Past Medical History?: Yes - Past Social History Smoking Status: Never Smoked - CARDIAC Hx Hypertension: Yes - PULMONARY Hx Respiratory Disorders: No - NEUROLOGICAL Hx Neurological Disorder: No - HEENT Hx HEENT Problems: No - RENAL Hx Chronic Kidney Disease: No - ENDOCRINE/METABOLIC Hx Diabetes Mellitus Type 2: Yes - HEMATOLOGICAL/ONCOLOGICAL Hx Blood Transfusions: Yes (04/26) Hx Cancer: Yes Other/Comment: stomach, lung, liver. - INTEGUMENTARY Hx Dermatological Problems: No - MUSCULOSKELETAL/RHEUMATOLOGICAL Hx Falls: No - GASTROINTESTINAL Hx Gall Bladder Disease: Yes (cholecystectomy 3 yrs. ago) Hx Pancreatitis: Yes - GENITOURINARY/GYNECOLOGICAL Hx Genitourinary Disorders: No - PSYCHIATRIC Hx Anxiety: Yes Hx Substance Use: No - SURGICAL HISTORY Hx Cholecystectomy: Yes - ANESTHESIA Hx Anesthesia: Yes Hx Anesthesia Reactions: No Hx Malignant Hyperthermia: No Meds Allergies/Adverse Reactions: Allergies Allergy/AdvReac Type Severity Reaction Status Date / Time Penicillins Allergy Verified 05/13/16 14:42 morphine AdvReac ITCHING Verified 05/13/16 14:42 - Medications Medications: Current Medications Diphenhydramine HCl (Benadryl) 25 mg IVP Q4H PRN Last Admin: 05/17/16 21:12 Dose: 25 mg Hydromorphone HCl (Dilaudid) 4 mg PO Q4H PRN PRN Reason: Pain, severe (8-10) Last Admin: 05/14/16 08:01 Dose: 4 mg Hydromorphone HCl (Dilaudid) 1 mg IVP Q4H PRN PRN Reason: Pain, severe (8-10) Last Admin: 05/17/16 21:12 Dose: 1 mg Hydroxyzine HCl (Atarax) 25 mg PO DAILY [facility] Last Admin: 05/17/16 11:45 Dose: 25 mg Insulin Aspart (Novolog) 10 unit SC ACTID [facility] Last Admin: 05/17/16 17:22 Dose: 10 unit Insulin Glargine (Lantus) 15 unit SC DAILY [facility] Last Admin: 05/17/16 11:39 Dose: 15 units Insulin Human Regular (Novolin R) 0 unit SC ACHS [facility] PRN Reason: Protocol Last Admin: 05/17/16 17:23 Dose: 8 unit Ondansetron HCl (Zofran Inj) 4 mg IVP Q4H PRN PRN Reason: Nausea/Vomiting Last Admin: 05/17/16 05:07 Dose: 4 mg Oxycodone HCl (Oxycontin Extended Release Tab) 20 mg PO Q12 [facility] Pantoprazole Sodium (Protonix Inj) 40 mg IVP DAILY [facility] Last Admin: 05/17/16 11:38 Dose: 40 mg Polyethylene Glycol (Miralax) 17 gm PO Q12 [facility] Last Admin: 05/17/16 21:27 Dose: 17 gm Senna/Docusate Sodium (Senokot S 50 Mg-8.6 Mg) 1 tab PO BID [facility] Last Admin: 05/17/16 17:20 Dose: 1 tab Tamsulosin HCl (Flomax) 0.4 mg PO DAILY [facility] Last Admin: 05/17/16 11:39 Dose: 0.4 mg Zinc Acetate/Diphenhydramine (Benadryl 1% Zinc Acetate -0.1%) 0 cre TOP DAILY [facility] Last Admin: 05/17/16 11:37 Dose: 1 applic Physical Exam - Constitutional Appears: Well - Respiratory Exam Respiratory Exam: Clear to Auscultation Bilateral - Cardiovascular Exam Cardiovascular Exam: REGULAR RHYTHM - GI/Abdominal Exam GI & Abdominal Exam: Normal Bowel Sounds, Soft - Extremities Exam Extremities exam: Positive for: normal inspection Results - Vital Signs Recent Vital Signs: Last Vital Signs Temp 98 F 05/17/16 16:00 Pulse 102 H 05/17/16 16:00 Resp 20 05/17/16 16:00 BP 107/72 05/17/16 16:00 Pulse Ox 99 05/17/16 16:00 - Labs Result Diagrams: 05/17/16 07:26 05/17/16 07:26 Labs: Laboratory Results - last 24 hr 05/16/16 05/17/16 05/17/16 07:06 07:14 07:26 WBC 3.2 L D RBC 3.43 L Hgb 10.1 L Hct 29.5 L MCV 86.0 MCH 29.6 MCHC 34.4 RDW 17.2 H Plt Count 166 MPV 8.4 Neut % (Auto) 66.1 Lymph % (Auto) 28.8 [place] % (Auto) 3.2 Eos % (Auto) 1.2 Baso % (Auto) 0.7 Neut # 2.1 Lymph # 0.9 L [place] # 0.1 Eos # 0.0 Baso # 0.0 Smear Path Review Sodium 135 Potassium 4.5 Chloride 91 L Carbon Dioxide 31 H Anion Gap 18 BUN 38 H Creatinine 1.5 H Est GFR ( Amer) 44 Est GFR (Non-Af Amer) 37 POC Glucose (mg/dL) 232 H Random Glucose 220 H Calcium 8.9 Phosphorus 3.6 Magnesium 1.9 Total Bilirubin 0.6 AST 20 ALT 26 Alkaline Phosphatase 71 Total Protein 6.6 Albumin 3.3 L Globulin 3.3 Albumin/Globulin Ratio 1.0 05/17/16 05/17/16 05/17/16 11:30 16:09 21:48 WBC RBC Hgb Hct MCV MCH MCHC RDW Plt Count MPV Neut % (Auto) Lymph % (Auto) [place] % (Auto) Eos % (Auto) Baso % (Auto) Neut # Lymph # [place] # Eos # Baso # Smear Path Review Sodium Potassium Chloride Carbon Dioxide Anion Gap BUN Creatinine Est GFR ( Amer) Est GFR (Non-Af Amer) POC Glucose (mg/dL) 230 H 308 H 232 H Random Glucose Calcium Phosphorus Magnesium Total Bilirubin AST ALT Alkaline Phosphatase Total Protein Albumin Globulin Albumin/Globulin Ratio Assessment & Plan - Assessment and Plan (Free Text) Assessment: 50 y/o PMH chronic pain 2/2 to diffuse large b cell lymphoma, HTN, GERD, DM here with chronic right flank radiating to right groin (normal renal scan/no evidence obstruction). She describes pain as chronic, constant dull/achey pain 10/10 at its worst with relief from hydromorphone. -Agree with oxycontin XR, hydromorphone as this was patient's home regimen. However, patient has not received her oxycontin dose so would encourage patient to restart. After restarting oxycontin would then transition hydromorphone IV PRN to hydromorphone PO PRN. -Agressive bowel regimen -Would encourage patient to be evaluated outpatient for celiac plexus block for chronic flank/abdominal pain as if successful would help with pain and decrease opioid requirement and constipation from narcotics.
[2016-05-18] MEDS: DiphenhydrAMINE 50 mg/ml Inj IVP PRN ×6 (01:10→22:17)
[2016-05-18] MEDS: HYDROmorphone 1 mg/ml ISec IVP PRN ×6 (01:12→22:18)
[2016-05-18 06:18] LABS: BASO % 1.1 % (0.0-2.0); EOS # 0.1 K/uL (0.0-0.7); EOS % 3.4 % (0.0-4.0); HEMATOCRIT 28.6 % (34.0-47.0); LYMPH # 0.7 K/uL (1.0-4.3); LYMPH % 46.7 % (20.0-40.0); MEAN CELL VOLUME 85.7 fL (81.0-99.0); MEAN CORPUSCULAR HEMOGLOBIN 28.9 pg (27.0-31.0); MEAN CORPUSCULAR HGB CONC 33.7 g/dL (33.0-37.0); MEAN PLATELET VOLUME 8.6 fL (7.2-11.7); MONO # 0.2 K/uL (0.0-0.8); MONO % 11.2 % (0.0-10.0); RED CELL DISTRIBUTION WIDTH 16.9 % (11.5-14.5)
[2016-05-18 06:23] LABS: POTASSIUM 4.6 mmol/L (3.6-5.2)
[2016-05-18 06:25] LABS: ALB/GLOB RATIO 1.2 (1.0-2.1); BILIRUBIN,TOTAL 0.6 mg/dL (0.2-1.3); CALCIUM 8.7 mg/dl (8.6-10.4); PHOSPHOROUS 3.9 mg/dL (2.5-4.5); TOTAL PROTEIN 6.5 g/dL (6.3-8.3)
[2016-05-18 06:26] LABS: MAGNESIUM 1.9 mg/dL (1.6-2.3)
[2016-05-18 06:31] LABS: WHITE BLOOD COUNT 1.6 K/uL (4.8-10.8)
[2016-05-18 07:38] LABS: RBC URINE < 1 /hpf (0-3); URINE BILIRUBIN NEGATIVE (NEGATIVE); URINE BLOOD NEGATIVE (NEGATIVE); URINE COLOR Straw (YELLOW); URINE GLUCOSE (UA) 1+ mg/dL (Normal); URINE KETONE NEGATIVE (NEGATIVE); URINE LEUKOCYTE ESTERASE NEG Leu/uL (Negative); URINE PROTEIN NEGATIVE (NEGATIVE); URINE UROBILINOGEN NORMAL mg/dL (0.2-1.0); WBC URINE < 1 /hpf (0-5)
[2016-05-18] MEDS: (Novolin R) Insulin Human Regular 100 units/ml vial SC SCH ×4 (08:20→22:18)
[2016-05-18] MEDS: (Novolog) Insulin Aspart, Recombinant 100 u/ml 10 ml vial SC SCH ×3 (08:44→17:00)
--- NOTE | 2016-05-18 09:30 | RAD ---
HISTORY: Constipation, abdominal distension COMPARISON: 01/17/2016. FINDINGS: BOWEL: There is large amount of stool in the colon. Non specific bowel gas pattern. BONES: Normal. OTHER FINDINGS: There are multiple skin aidan in the abdomen.. IMPRESSION: Severe constipation. Non obstructive gas pattern.
[2016-05-18] MEDS: Docusate-Senna 50 mg-8.6 mg Tab PO SCH ×2 (10:38→18:43)
[2016-05-18] MEDS: (Lantus) Insulin Glargine, Recombinant SC SCH (10:38)
[2016-05-18] MEDS: POLYETHYLENE GLYCOL 3350 17 GM/Dose PACKET PO SCH (10:39)
[2016-05-18] MEDS: oxyCODONE 20 mg ER Tab (oxyCONTIN) PO SCH ×2 (10:40→21:43)
[2016-05-18] MEDS: Diphenhydramine 1% Cream (1 oz) TOP SCH (10:41)
--- NOTE | 2016-05-18 13:07 | CP.PCM.PN ---
<Johnny Scott - Last Filed: 05/18/16 13:02> Subjective - Date & Time of Evaluation Date of Evaluation: 05/18/16 Time of Evaluation: 13:02 - Subjective Subjective: PGY-1 note for medicine service Pt seen and examined at bedside. Pt still complaining of constipation and requesting a fleet enema. Pt otherwise has no new complaints. Denies any fevers , chills, chest pain, sob, nausea or vomiting Objective - Vital Signs/Intake and Output Vital Signs (last 24 hours): Temp Pulse Resp BP Pulse Ox 98.7 F 103 H 20 103/59 L 96 05/18/16 08:00 05/18/16 08:00 05/18/16 08:00 05/18/16 08:00 05/18/16 08:00 Intake and Output: 05/18/16 05/18/16 06:59 18:59 Intake Total 180 Balance 180 - Medications Medications: Current Medications Diphenhydramine HCl (Benadryl) 25 mg IVP Q4H PRN Last Admin: 05/18/16 09:27 Dose: 25 mg Diphenhydramine HCl (Benadryl) 50 mg IVP HS PRN PRN Reason: Itching / Pruritus Hydromorphone HCl (Dilaudid) 4 mg PO Q4H PRN PRN Reason: Pain, severe (8-10) Hydroxyzine HCl (Atarax) 25 mg PO DAILY [facility] Last Admin: 05/18/16 10:38 Dose: 25 mg Insulin Aspart (Novolog) 12 unit SC ACTID [facility] Last Admin: 05/18/16 12:30 Dose: Not Given Insulin Glargine (Lantus) 20 unit SC DAILY [facility] Last Admin: 05/18/16 10:38 Dose: 20 units Insulin Human Regular (Novolin R) 0 unit SC ACHS [facility] PRN Reason: Protocol Last Admin: 05/18/16 12:30 Dose: 4 unit Ondansetron HCl (Zofran Inj) 4 mg IVP Q4H PRN PRN Reason: Nausea/Vomiting Last Admin: 05/17/16 05:07 Dose: 4 mg Oxycodone HCl (Oxycontin Extended Release Tab) 20 mg PO Q12 [facility] Last Admin: 05/18/16 10:40 Dose: 20 mg Pantoprazole Sodium (Protonix Inj) 40 mg IVP DAILY [facility] Last Admin: 05/18/16 10:39 Dose: 40 mg Polyethylene Glycol (Miralax) 17 gm PO Q12 [facility] Last Admin: 05/18/16 10:39 Dose: 17 gm Senna/Docusate Sodium (Senokot S 50 Mg-8.6 Mg) 1 tab PO BID [facility] Last Admin: 05/18/16 10:38 Dose: 1 tab Tamsulosin HCl (Flomax) 0.4 mg PO DAILY [facility] Last Admin: 05/18/16 10:38 Dose: 0.4 mg Zinc Acetate/Diphenhydramine (Benadryl 1% Zinc Acetate -0.1%) 0 cre TOP DAILY [facility] Last Admin: 05/18/16 10:41 Dose: 1 applic - Labs Labs: 05/18/16 06:03 05/18/16 06:03 - Constitutional Appears: Non-toxic, Chronically Ill - Head Exam Head Exam: ATRAUMATIC, NORMOCEPHALIC - Eye Exam Eye Exam: Normal appearance Pupil Exam: PERRL - ENT Exam ENT Exam: Mucous Membranes Moist - Respiratory Exam Respiratory Exam: Clear to Ausculation Bilateral, NORMAL BREATHING PATTERN - Cardiovascular Exam Cardiovascular Exam: +S1, +S2 - GI/Abdominal Exam GI & Abdominal Exam: Soft, Tenderness, Normal Bowel Sounds - Neurological Exam Neurological Exam: Alert, Awake - Skin Skin Exam: Dry, Warm Assessment and Plan - Assessment and Plan (Free Text) Assessment: Body aches - Secondary to tumor burden/chemo - Dilaudid 4mg PO Q4H PRN - Benadryl 25mg IV Q4H PRN - Flu neg - f/u palliative care consult for pain management - will change long acting Oxycodone 10mg Q12 - Palliative not able to see pt yet, will consult anesthesia (Casey) for pain management - Per anesthesia - recommends current management as pt is not fully utilizing her PRN meds with her scheduled long acting pain meds. If pain persists, another option outpatient would be a plexus block. Abdominal Pain - Secondary to tumor burden/chemo - History of colostomy, then reversal - Zofran 4mg IVP Q6 PRN - Dilaudid 4mg PO Q4H PRN - Benadryl 25mg IV Q4H PRN - Oxycodone 10mg Q12 - f/u palliative care consult - Anesthesia consult (Casey) for pain management - recommends current management as pt is not fully utilizing her PRN meds with her scheduled long acting pain meds. If pain persists, another option outpatient would be a plexus block. - Abdominal US 05/17 - Unremarkable except for CBD dilatation of 1.1cm s/p cholecystectomy - GI consulted - recommends MRCP and abdominal xray. Continue supportive care and will continue to follow pt - Abdominal xray 05/18 - severe constipation, non-obstructive gas pattern Dysuria - Pt complaining of difficult urination, straining - On prior CT, tumor burden found near ureter - UA: 3+ glucose, 1+ protein - Urine culture multiple species, probable contamination. Will repeat today () - f/u - Tamsulosin 0.4mg PO Daily; with this the dysuria is improved Type 2, Diabetes Mellitus - Accuchecks - Increased Lantus to 20 units in AM, Increased Humalog 75/25 12 units ACTID - Hold Metformin 1000mg PO Daily due to renal function - A1C: 7.9 (05/03/16) - c/w current management Diffuse B-Cell lymphoma - Management per Hem/Onc - Hem/Onc: Dr. Machuca, help appreciated - s/p 6 cycle of RCHOP - last day of prednisone 100mg PO given 05/14 - outpatient PET CT scan Palliative Care consult, help appreciated - f/u reccs Dietary Referral, help appreciated - started on heart healthy diet Leukopenia - WBC dropped again, will give another granix shot per heme/onc - f/u labs Hx of HTN - Normotensive in ED - Denies currently taking home BP meds, though listed on recent admission Elevated Bun/Cr - Believed secondary to chemo - patient has had elevated creatinine into the mid 2's in the patient; this is more towards her baseline since chemo Constipation - Miralax Q12H - Senna-Colace Pruritus - Benadryl 25mg PRN Prophylaxis - Heparin 5000units SC Q8H - Protonix 40mg IV Daily - SCDs <Ping Herrera V - Last Filed: 05/18/16 18:50> Objective - Vital Signs/Intake and Output Vital Signs (last 24 hours): Temp Pulse Resp BP Pulse Ox 98.2 F 94 H 20 104/72 96 05/18/16 15:00 05/18/16 15:00 05/18/16 15:00 05/18/16 15:00 05/18/16 15:00 Intake and Output: 05/18/16 05/18/16 06:59 18:59 Intake Total 180 400 Balance 180 400 - Medications Medications: Current Medications Diphenhydramine HCl (Benadryl) 50 mg IVP HS PRN PRN Reason: Itching / Pruritus Diphenhydramine HCl (Benadryl) 25 mg PO Q4 PRN PRN Reason: Itching / Pruritus Hydromorphone HCl (Dilaudid) 4 mg PO Q4H PRN PRN Reason: Pain, severe (8-10) Hydromorphone HCl (Dilaudid) 1 mg IVP Q4H PRN PRN Reason: Pain, severe (8-10) Last Admin: 05/18/16 17:58 Dose: 1 mg Insulin Aspart (Novolog) 12 unit SC ACTID [facility] Last Admin: 05/18/16 17:00 Dose: 12 unit Insulin Glargine (Lantus) 20 unit SC DAILY [facility] Last Admin: 05/18/16 10:38 Dose: 20 units Insulin Human Regular (Novolin R) 0 unit SC ACHS [facility] PRN Reason: Protocol Last Admin: 05/18/16 17:00 Dose: 1 unit Ondansetron HCl (Zofran Inj) 4 mg IVP Q4H PRN PRN Reason: Nausea/Vomiting Last Admin: 05/17/16 05:07 Dose: 4 mg Oxycodone HCl (Oxycontin Extended Release Tab) 20 mg PO Q12 [facility] Last Admin: 05/18/16 10:40 Dose: 20 mg Pantoprazole Sodium (Protonix Inj) 40 mg IVP DAILY [facility] Last Admin: 05/18/16 10:39 Dose: 40 mg Polyethylene Glycol (Miralax) 17 gm PO Q12 [facility] Last Admin: 05/18/16 10:39 Dose: 17 gm Senna/Docusate Sodium (Senokot S 50 Mg-8.6 Mg) 1 tab PO BID [facility] Last Admin: 05/18/16 10:38 Dose: 1 tab Tamsulosin HCl (Flomax) 0.4 mg PO DAILY [facility] Last Admin: 05/18/16 10:38 Dose: 0.4 mg Zinc Acetate/Diphenhydramine (Benadryl 1% Zinc Acetate -0.1%) 0 cre TOP DAILY [facility] Last Admin: 05/18/16 10:41 Dose: 1 applic - Labs Labs: 05/18/16 06:03 05/18/16 06:03 Attending/Attestation - Attestation I have personally seen and examined this patient.: Yes I have fully participated in the care of the patient.: Yes I have reviewed all pertinent clinical information, including history, physical exam and plan: Yes Notes (Text): Patient seen, examined and case discussed with day-time resident. Patient reports mild right flank pain; which is persistent. Patient is pending GI imaging at this time including MRCP and MRI abdomen, which MRI is not opened given the current weather conditions and abdominal multi series. patient reports mild anxiety for MRI and reports she would like "something to knock her out" and her who is not here today. Patient's insulin adjusted long time and premeal insulin regimen: To lantus 20units qAHM and and Novolin 12 units TID. Patient was leukopenic; discussed with heme-onc given dose of Granix today. Pending result of urine culture which was received given patient's prior hx of ESBL utis in the past. Current Pain regimen: * Dilaudid 4mg PO Q 4hr * Dilaudid 1mg IV 4hour PRN * Changed Benadryl 25mg PO Q4 H PRN itchiness (from IV) and with Benadryl 50mg IV qHS for night time ONLY * Patient reminded to take the long acting Oxycontin Extended release 20mg PO Q 12hours * pain management recommended for patient to be compliant current pain regimen first
--- NOTE | 2016-05-18 16:02 | CP.PCM.PN ---
Subjective - Date & Time of Evaluation Date of Evaluation: 05/17/16 Time of Evaluation: 18:50 - Subjective Subjective: Has right flank/groin pain Objective - Vital Signs/Intake and Output Vital Signs (last 24 hours): Temp Pulse Resp BP Pulse Ox 98.7 F 103 H 20 103/59 L 96 05/18/16 08:00 05/18/16 08:00 05/18/16 08:00 05/18/16 08:00 05/18/16 08:00 Intake and Output: 05/18/16 05/18/16 06:59 18:59 Intake Total 180 400 Balance 180 400 - Medications Medications: Current Medications Diphenhydramine HCl (Benadryl) 25 mg IVP Q4H PRN Last Admin: 05/18/16 13:52 Dose: 25 mg Diphenhydramine HCl (Benadryl) 50 mg IVP HS PRN PRN Reason: Itching / Pruritus Hydromorphone HCl (Dilaudid) 4 mg PO Q4H PRN PRN Reason: Pain, severe (8-10) Hydromorphone HCl (Dilaudid) 1 mg IVP Q4H PRN PRN Reason: Pain, severe (8-10) Last Admin: 05/18/16 13:53 Dose: 1 mg Hydroxyzine HCl (Atarax) 25 mg PO DAILY [facility] Last Admin: 05/18/16 10:38 Dose: 25 mg Insulin Aspart (Novolog) 12 unit SC ACTID [facility] Last Admin: 05/18/16 12:30 Dose: Not Given Insulin Glargine (Lantus) 20 unit SC DAILY [facility] Last Admin: 05/18/16 10:38 Dose: 20 units Insulin Human Regular (Novolin R) 0 unit SC ACHS [facility] PRN Reason: Protocol Last Admin: 05/18/16 12:30 Dose: 4 unit Ondansetron HCl (Zofran Inj) 4 mg IVP Q4H PRN PRN Reason: Nausea/Vomiting Last Admin: 05/17/16 05:07 Dose: 4 mg Oxycodone HCl (Oxycontin Extended Release Tab) 20 mg PO Q12 [facility] Last Admin: 05/18/16 10:40 Dose: 20 mg Pantoprazole Sodium (Protonix Inj) 40 mg IVP DAILY [facility] Last Admin: 05/18/16 10:39 Dose: 40 mg Polyethylene Glycol (Miralax) 17 gm PO Q12 [facility] Last Admin: 05/18/16 10:39 Dose: 17 gm Senna/Docusate Sodium (Senokot S 50 Mg-8.6 Mg) 1 tab PO BID [facility] Last Admin: 05/18/16 10:38 Dose: 1 tab Tamsulosin HCl (Flomax) 0.4 mg PO DAILY [facility] Last Admin: 05/18/16 10:38 Dose: 0.4 mg Zinc Acetate/Diphenhydramine (Benadryl 1% Zinc Acetate -0.1%) 0 cre TOP DAILY [facility] Last Admin: 05/18/16 10:41 Dose: 1 applic - Labs Labs: 05/18/16 06:03 05/18/16 06:03 - Head Exam Head Exam: ATRAUMATIC - Eye Exam Eye Exam: Normal appearance - ENT Exam ENT Exam: Mucous Membranes Dry - Respiratory Exam Respiratory Exam: NORMAL BREATHING PATTERN - Cardiovascular Exam Cardiovascular Exam: +S1, +S2 - GI/Abdominal Exam GI & Abdominal Exam: Normal Bowel Sounds - Extremities Exam Extremities Exam: Normal Inspection Assessment and Plan (1) Intractable pain Assessment & Plan: pain management of note, pt unable to afford long acting narcotics in the past; recommend social work evaluation for possible assistance of final pain regimen outpatient nerve block bowel regimen Status: Acute (2) Neutropenia Assessment & Plan: redose neupogen if ANC < 500 Status: Acute (3) Anemia Assessment & Plan: chronic disease, chemotherapy Status: Acute (4) Diffuse large B cell lymphoma Assessment & Plan: s/p 6 cycles of chemotherapy Status: Acute
[2016-05-19] MEDS: HYDROmorphone 1 mg/ml ISec IVP PRN ×5 (02:15→18:49)
[2016-05-19 07:27] LABS: BASO % 1.5 % (0.0-2.0); EOS % 2.1 % (0.0-4.0); HEMATOCRIT 27.6 % (34.0-47.0); LYMPH # 0.7 K/uL (1.0-4.3); LYMPH % 33.6 % (20.0-40.0); MEAN CELL VOLUME 86.7 fL (81.0-99.0); MEAN CORPUSCULAR HEMOGLOBIN 29.4 pg (27.0-31.0); MEAN PLATELET VOLUME 8.6 fL (7.2-11.7); MONO # 0.6 K/uL (0.0-0.8); MONO % 28.4 % (0.0-10.0); NRBC % 0.8 % (0.0-2.0); PLATELET COUNT 143 K/uL (130-400); RED CELL DISTRIBUTION WIDTH 17.1 % (11.5-14.5); WHITE BLOOD COUNT 2.2 K/uL (4.8-10.8)
[2016-05-19 07:44] LABS: POTASSIUM 4.5 mmol/L (3.6-5.2)
[2016-05-19 07:47] LABS: ALB/GLOB RATIO 1.2 (1.0-2.1); BILIRUBIN,TOTAL 0.3 mg/dL (0.2-1.3); PHOSPHOROUS 4.2 mg/dL (2.5-4.5); TOTAL PROTEIN 6.2 g/dL (6.3-8.3)
[2016-05-19 07:48] LABS: CALCIUM 8.9 mg/dl (8.6-10.4); MAGNESIUM 1.8 mg/dL (1.6-2.3)
[2016-05-19] MEDS: (Novolog) Insulin Aspart, Recombinant 100 u/ml 10 ml vial SC SCH ×3 (08:11→17:21)
[2016-05-19] MEDS: (Novolin R) Insulin Human Regular 100 units/ml vial SC SCH ×4 (08:20→21:47)
[2016-05-19 08:40] LABS: BASOPHIL 2 % (0-2); MYELOCYTE 1 % (0-0); NEUTROPHIL 13 % (50-75); NUCLEATED RED BLOOD CELL 2 % (0-0); TOTAL CELLS COUNTED 100
[2016-05-19] MEDS ORDERED: Magnesium Hydroxide Susp 30 ml UD PO ONE (10:02)
[2016-05-19] MEDS ORDERED: Peg-Electrolyte Oral Soln 4L (Golytely) PO ONE (10:13)
[2016-05-19] MEDS: Diphenhydramine 1% Cream (1 oz) TOP SCH (10:23)
[2016-05-19] MEDS: oxyCODONE 20 mg ER Tab (oxyCONTIN) PO SCH ×2 (10:23→21:46)
[2016-05-19] MEDS: Docusate-Senna 50 mg-8.6 mg Tab PO SCH ×2 (10:23→17:25)
--- NOTE | 2016-05-19 10:38 | CP.PCM.PN ---
<Yusra Meyre - Last Filed: 05/19/16 10:35> Subjective - Date & Time of Evaluation Date of Evaluation: 05/19/16 Time of Evaluation: 10:35 - Subjective Subjective: Gastroenterology Fellow/PGY4 Progress Note Patient notes persistent right flank pain. Tolerating regular diet without nausea or vomiting. No bowel movement despite fleet enema and bowel regimen with docusate, senna, and Miralax. A 12-point review of systems negative except for as above. Objective - Vital Signs/Intake and Output Vital Signs (last 24 hours): Temp Pulse Resp BP Pulse Ox 98.8 F 102 H 18 102/66 98 05/19/16 07:00 05/19/16 07:00 05/19/16 07:00 05/19/16 07:00 05/19/16 07:00 Intake and Output: 05/19/16 05/19/16 06:59 18:59 Intake Total 540 Balance 540 - Medications Medications: Current Medications Diphenhydramine HCl (Benadryl) 50 mg IVP HS PRN PRN Reason: Itching / Pruritus Last Admin: 05/18/16 22:17 Dose: 50 mg Diphenhydramine HCl (Benadryl) 25 mg PO Q4 PRN PRN Reason: Itching / Pruritus Last Admin: 05/19/16 10:23 Dose: 25 mg Hydromorphone HCl (Dilaudid) 4 mg PO Q4H PRN PRN Reason: Pain, severe (8-10) Hydromorphone HCl (Dilaudid) 1 mg IVP Q4H PRN PRN Reason: Pain, severe (8-10) Last Admin: 05/19/16 10:24 Dose: 1 mg Sodium Chloride (Sodium Chloride 0.9%) 1,000 mls @ 75 mls/hr IV .[id number] [facility] Insulin Aspart (Novolog) 12 unit SC ACTID [facility] Last Admin: 05/19/16 08:11 Dose: Not Given Insulin Glargine (Lantus) 20 unit SC DAILY [facility] Last Admin: 05/18/16 10:38 Dose: 20 units Insulin Human Regular (Novolin R) 0 unit SC ACHS [facility] PRN Reason: Protocol Last Admin: 05/19/16 08:20 Dose: 6 unit Ondansetron HCl (Zofran Inj) 4 mg IVP Q4H PRN PRN Reason: Nausea/Vomiting Last Admin: 05/17/16 05:07 Dose: 4 mg Oxycodone HCl (Oxycontin Extended Release Tab) 20 mg PO Q12 [facility] Last Admin: 05/19/16 10:23 Dose: 20 mg Pantoprazole Sodium (Protonix Inj) 40 mg IVP DAILY [facility] Last Admin: 05/19/16 10:26 Dose: 40 mg Senna/Docusate Sodium (Senokot S 50 Mg-8.6 Mg) 1 tab PO BID [facility] Last Admin: 05/19/16 10:23 Dose: 1 tab Tamsulosin HCl (Flomax) 0.4 mg PO DAILY [facility] Last Admin: 05/19/16 10:22 Dose: 0.4 mg Zinc Acetate/Diphenhydramine (Benadryl 1% Zinc Acetate -0.1%) 0 cre TOP DAILY [facility] Last Admin: 05/19/16 10:23 Dose: 1 applic - Labs Labs: 05/19/16 06:30 05/19/16 06:30 - Constitutional Appears: Non-toxic, No Acute Distress, Chronically Ill - Head Exam Head Exam: ATRAUMATIC, NORMOCEPHALIC - Eye Exam Eye Exam: EOMI, PERRL Pupil Exam: PERRL. absent: Miosis, Mydriatic - ENT Exam ENT Exam: Mucous Membranes Moist, Normal Oropharynx - Neck Exam Neck Exam: Full ROM, Normal Inspection - Respiratory Exam Respiratory Exam: Clear to Ausculation Bilateral. absent: Rales, Rhonchi, Wheezes - Cardiovascular Exam Cardiovascular Exam: RRR, +S1, +S2. absent: Gallop, Rubs - GI/Abdominal Exam GI & Abdominal Exam: Soft, Tenderness, Normal Bowel Sounds. absent: Distended, Firm, Guarding, Rigid, Mass, Organomegaly, Rebound Additional comments: diffuse tenderness to palpation, negative McBurney's, Rovsing's, or Chandler's signs - Extremities Exam Extremities Exam: Full ROM. 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 Ultrasound showed chronically dilated CBD 1.1cm in setting of cholecystectomy and chronic opioid use. Chronic CBD dilatation Constipation Chronic right flank pain Plan: >pending MRCP for further evaluation of dilated CBD, likely secondary to cholecystectomy and chronic opioid use >abdominal xray-persistent constipation despite aggressive bowel regimen, likely opioid induced >recommend Relistor, not on [facility] formulary >ordered GoLytely >recommend outpatient follow up for further treatment with Amitiza/Relistor/ Movantik >pain management consult- recommend outpatient evaluation for celiac plexus nerve block >further recommendations based on clinical course <Ashok Mohr - Last Filed: 05/19/16 11:32> Objective - Vital Signs/Intake and Output Vital Signs (last 24 hours): Temp Pulse Resp BP Pulse Ox 98.8 F 102 H 18 102/66 98 05/19/16 07:00 05/19/16 07:00 05/19/16 07:00 05/19/16 07:00 05/19/16 07:00 Intake and Output: 05/19/16 05/19/16 06:59 18:59 Intake Total 540 Balance 540 - Medications Medications: Current Medications Alprazolam (Xanax) 0.25 mg PO ONCE ONE Stop: 05/19/16 11:31 Diphenhydramine HCl (Benadryl) 50 mg IVP HS PRN PRN Reason: Itching / Pruritus Last Admin: 05/18/16 22:17 Dose: 50 mg Diphenhydramine HCl (Benadryl) 25 mg PO Q4 PRN PRN Reason: Itching / Pruritus Last Admin: 05/19/16 10:23 Dose: 25 mg Hydromorphone HCl (Dilaudid) 4 mg PO Q4H PRN PRN Reason: Pain, severe (8-10) Hydromorphone HCl (Dilaudid) 1 mg IVP Q4H PRN PRN Reason: Pain, severe (8-10) Last Admin: 05/19/16 10:24 Dose: 1 mg Sodium Chloride (Sodium Chloride 0.9%) 1,000 mls @ 75 mls/hr IV .[id number] [facility] Insulin Aspart (Novolog) 12 unit SC ACTID [facility] Last Admin: 05/19/16 08:11 Dose: Not Given Insulin Glargine (Lantus) 20 unit SC DAILY [facility] Last Admin: 05/18/16 10:38 Dose: 20 units Insulin Human Regular (Novolin R) 0 unit SC ACHS [facility] PRN Reason: Protocol Last Admin: 05/19/16 08:20 Dose: 6 unit Ondansetron HCl (Zofran Inj) 4 mg IVP Q4H PRN PRN Reason: Nausea/Vomiting Last Admin: 05/17/16 05:07 Dose: 4 mg Oxycodone HCl (Oxycontin Extended Release Tab) 20 mg PO Q12 [facility] Last Admin: 05/19/16 10:23 Dose: 20 mg Pantoprazole Sodium (Protonix Inj) 40 mg IVP DAILY [facility] Last Admin: 05/19/16 10:26 Dose: 40 mg Senna/Docusate Sodium (Senokot S 50 Mg-8.6 Mg) 1 tab PO BID [facility] Last Admin: 05/19/16 10:23 Dose: 1 tab Tamsulosin HCl (Flomax) 0.4 mg PO DAILY [facility] Last Admin: 05/19/16 10:22 Dose: 0.4 mg Zinc Acetate/Diphenhydramine (Benadryl 1% Zinc Acetate -0.1%) 0 cre TOP DAILY [facility] Last Admin: 05/19/16 10:23 Dose: 1 applic - Labs Labs: 05/19/16 06:30 05/19/16 06:30 Attending/Attestation - Attestation I have personally seen and examined this patient.: Yes I have fully participated in the care of the patient.: Yes I have reviewed all pertinent clinical information, including history, physical exam and plan: Yes Notes (Text): Patient seen and examined with GI fellow. Agree with her note as documented above with the following additions/exceptions. This is a 50 year old female with history of chronic right flank pain, toxic megacolon s/p transverse colostomy s/p reversal, and diffuse large B cell lymphoma s/p chemo, DM, HTN who presents with worsening chronic flank pain, no e/o obstruction. AXR with constipation, likely opiate induced. Discussed with pharmacist, we do not have methylnaltrexone on formulary; patient has been on aggressive bowel regimen without BM, so will start Golytely. She has dilated CBD which is chronic in nature and no associated LFT abnormalities. Will obtain MRCP for further evaluation. Continue diet as tolerated. Follow up pain/palliative recommendations. 05/19/16 11:30
--- NOTE | 2016-05-19 10:52 | CP.PCM.PN ---
<Johnny Scott - Last Filed: 05/19/16 10:46> Subjective - Date & Time of Evaluation Date of Evaluation: 05/19/16 Time of Evaluation: 10:46 - Subjective Subjective: PGY-1 note for medicine service Pt seen and examined at bedside. Pt reports some persistent abdominal pain. She had fleet enema yesterday with no success. Denies any fevers, chills, chest pain , sob, nausea or vomiting. Objective - Vital Signs/Intake and Output Vital Signs (last 24 hours): Temp Pulse Resp BP Pulse Ox 98.8 F 102 H 18 102/66 98 05/19/16 07:00 05/19/16 07:00 05/19/16 07:00 05/19/16 07:00 05/19/16 07:00 Intake and Output: 05/19/16 05/19/16 06:59 18:59 Intake Total 540 Balance 540 - Medications Medications: Current Medications Diphenhydramine HCl (Benadryl) 50 mg IVP HS PRN PRN Reason: Itching / Pruritus Last Admin: 05/18/16 22:17 Dose: 50 mg Diphenhydramine HCl (Benadryl) 25 mg PO Q4 PRN PRN Reason: Itching / Pruritus Last Admin: 05/19/16 10:23 Dose: 25 mg Hydromorphone HCl (Dilaudid) 4 mg PO Q4H PRN PRN Reason: Pain, severe (8-10) Hydromorphone HCl (Dilaudid) 1 mg IVP Q4H PRN PRN Reason: Pain, severe (8-10) Last Admin: 05/19/16 10:24 Dose: 1 mg Sodium Chloride (Sodium Chloride 0.9%) 1,000 mls @ 75 mls/hr IV .[id number] [facility] Insulin Aspart (Novolog) 12 unit SC ACTID [facility] Last Admin: 05/19/16 08:11 Dose: Not Given Insulin Glargine (Lantus) 20 unit SC DAILY [facility] Last Admin: 05/18/16 10:38 Dose: 20 units Insulin Human Regular (Novolin R) 0 unit SC ACHS [facility] PRN Reason: Protocol Last Admin: 05/19/16 08:20 Dose: 6 unit Ondansetron HCl (Zofran Inj) 4 mg IVP Q4H PRN PRN Reason: Nausea/Vomiting Last Admin: 05/17/16 05:07 Dose: 4 mg Oxycodone HCl (Oxycontin Extended Release Tab) 20 mg PO Q12 [facility] Last Admin: 05/19/16 10:23 Dose: 20 mg Pantoprazole Sodium (Protonix Inj) 40 mg IVP DAILY [facility] Last Admin: 05/19/16 10:26 Dose: 40 mg Senna/Docusate Sodium (Senokot S 50 Mg-8.6 Mg) 1 tab PO BID [facility] Last Admin: 05/19/16 10:23 Dose: 1 tab Tamsulosin HCl (Flomax) 0.4 mg PO DAILY [facility] Last Admin: 05/19/16 10:22 Dose: 0.4 mg Zinc Acetate/Diphenhydramine (Benadryl 1% Zinc Acetate -0.1%) 0 cre TOP DAILY [facility] Last Admin: 05/19/16 10:23 Dose: 1 applic - Labs Labs: 05/19/16 06:30 05/19/16 06:30 - Constitutional Appears: Non-toxic, No Acute Distress, Chronically Ill - Head Exam Head Exam: ATRAUMATIC, NORMOCEPHALIC - Eye Exam Eye Exam: Normal appearance Pupil Exam: PERRL - ENT Exam ENT Exam: Mucous Membranes Moist - Respiratory Exam Respiratory Exam: Clear to Ausculation Bilateral, NORMAL BREATHING PATTERN - Cardiovascular Exam Cardiovascular Exam: +S1, +S2 - GI/Abdominal Exam GI & Abdominal Exam: Soft, Tenderness, Normal Bowel Sounds - Neurological Exam Neurological Exam: Alert, Awake - Skin Skin Exam: Dry, Warm Assessment and Plan - Assessment and Plan (Free Text) Assessment: Body aches - Secondary to tumor burden/chemo - Dilaudid 4mg PO Q4H PRN - Benadryl 25mg PO Q4H PRN - Benadryl 50mg PO QHS PRN - Flu neg - f/u palliative care consult for pain management - will change long acting Oxycodone 10mg Q12 - Palliative not able to see pt yet, will consult anesthesia ([facility]y) for pain management - Per anesthesia - recommends current management as pt is not fully utilizing her PRN meds with her scheduled long acting pain meds. If pain persists, another option outpatient would be a plexus block. Abdominal Pain - Secondary to tumor burden/chemo vs opioid induced constipation vs bile congestion - History of colostomy, then reversal - Zofran 4mg IVP Q6 PRN - Dilaudid 4mg PO Q4H PRN - Benadryl 25mg IV Q4H PRN - Oxycodone 10mg Q12 - f/u palliative care consult - Anesthesia consult (Casey) for pain management - recommends current management as pt is not fully utilizing her PRN meds with her scheduled long acting pain meds. If pain persists, another option outpatient would be a plexus block. - Abdominal US 05/17 - Unremarkable except for CBD dilatation of 1.1cm s/p cholecystectomy - GI consulted - recommends MRCP and abdominal xray. Continue supportive care and will continue to follow pt - Will add relestor - Abdominal xray 05/18 - severe constipation, non-obstructive gas pattern Dysuria - Urine Cx 05/17 - negative - Pt complaining of difficult urination, straining - On prior CT, tumor burden found near ureter - UA: 3+ glucose, 1+ protein - Urine culture multiple species, probable contamination. Will repeat today () - f/u - Tamsulosin 0.4mg PO Daily; with this the dysuria is improved Type 2, Diabetes Mellitus - Accuchecks - Increased Lantus to 20 units in AM, Increased Humalog 75/25 12 units ACTID - Hold Metformin 1000mg PO Daily due to renal function - A1C: 7.9 (05/03/16) - c/w current management Diffuse B-Cell lymphoma - Management per Hem/Onc - Hem/Onc: Dr. Machuca, help appreciated - s/p 6 cycle of RCHOP - last day of prednisone 100mg PO given 05/14 - outpatient PET CT scan Palliative Care consult, help appreciated - f/u reccs Dietary Referral, help appreciated - started on heart healthy diet Leukopenia - WBC dropped again, will give another granix shot per heme/onc - WMC count improved. Will continue to follow - f/u labs Hx of HTN - Normotensive in ED - Denies currently taking home BP meds, though listed on recent admission Elevated Bun/Cr - Believed secondary to chemo - patient has had elevated creatinine into the mid 2's in the patient; this is more towards her baseline since chemo Constipation - Miralax Q12H - Senna-Colace Pruritus - Benadryl 25mg PRN Prophylaxis - Heparin 5000units SC Q8H - Protonix 40mg IV Daily - SCDs <Ping Herrera V - Last Filed: 05/20/16 10:57> Objective - Vital Signs/Intake and Output Vital Signs (last 24 hours): Temp Pulse Resp BP Pulse Ox 98.7 F 99 H 20 116/71 98 05/20/16 08:00 05/20/16 08:00 05/20/16 08:00 05/20/16 08:00 05/20/16 08:00 Intake and Output: 05/20/16 05/20/16 06:59 18:59 Intake Total 1845 Output Total 600 Balance 1245 - Medications Medications: Current Medications Diphenhydramine HCl (Benadryl) 50 mg IVP HS PRN PRN Reason: Itching / Pruritus Last Admin: 05/18/16 22:17 Dose: 50 mg Diphenhydramine HCl (Benadryl) 25 mg PO Q4 PRN PRN Reason: Itching / Pruritus Last Admin: 05/20/16 08:30 Dose: 25 mg Hydromorphone HCl (Dilaudid) 4 mg PO Q4H PRN PRN Reason: Pain, severe (8-10) Hydromorphone HCl (Dilaudid) 1 mg IVP Q4H PRN PRN Reason: Pain, severe (8-10) Last Admin: 05/20/16 08:31 Dose: 1 mg Sodium Chloride (Sodium Chloride 0.9%) 1,000 mls @ 75 mls/hr IV .[id number] [facility] Last Admin: 05/20/16 05:30 Dose: 75 mls/hr Insulin Aspart (Novolog) 12 unit SC ACTID [facility] Last Admin: 05/20/16 08:39 Dose: 12 unit Insulin Glargine (Lantus) 20 unit SC DAILY [facility] Last Admin: 05/20/16 10:46 Dose: 20 units Insulin Human Regular (Novolin R) 0 unit SC ACHS [facility] PRN Reason: Protocol Last Admin: 05/20/16 08:39 Dose: 6 unit Ondansetron HCl (Zofran Inj) 4 mg IVP Q4H PRN PRN Reason: Nausea/Vomiting Last Admin: 05/17/16 05:07 Dose: 4 mg Oxycodone HCl (Oxycontin Extended Release Tab) 20 mg PO Q12 [facility] Last Admin: 05/20/16 10:47 Dose: 20 mg Pantoprazole Sodium (Protonix Ec Tab) 40 mg PO DAILY [facility] Last Admin: 05/20/16 10:46 Dose: 40 mg Senna/Docusate Sodium (Senokot S 50 Mg-8.6 Mg) 1 tab PO BID [facility] Last Admin: 05/20/16 10:45 Dose: 1 tab Sodium Chloride ([place] Baby Saline 30 Ml) 1 ml JONAS Q4H [facility] Last Admin: 05/20/16 10:46 Dose: 1 spr Tamsulosin HCl (Flomax) 0.4 mg PO DAILY [facility] Last Admin: 05/20/16 10:46 Dose: 0.4 mg Zinc Acetate/Diphenhydramine (Benadryl 1% Zinc Acetate -0.1%) 0 cre TOP DAILY [facility] Last Admin: 05/20/16 10:46 Dose: 1 applic - Labs Labs: 05/20/16 08:00 05/20/16 08:00 Attending/Attestation - Attestation I have personally seen and examined this patient.: Yes I have fully participated in the care of the patient.: Yes I have reviewed all pertinent clinical information, including history, physical exam and plan: Yes Notes (Text): This is late computer entry for 05/19/16. Patient seen, examined, and case discussed with day-time resident. Abdominal xray shows severe constipation. Patient has been multiple types of bowel regimen. Had a fleet water enema yesterday but has not had a bowel movement. Attempted milk of magnesia to initiate bowel movement. Likely narcotic influenced. Patient encouraged to maintain compliance on narcotic regimen (PO not IV) including the long acting opiate. Urine culture is negative. Patient is pending MRI/MRCP at the time of my evaluation. Patient placed on Xanax PRN prior to MRI given claustrophobia. White count mildly improved after dose of Granix on 05/18/16. Patient is pending completion of GI workup.
[2016-05-19] MEDS: Sodium Chloride 0.9% 1,000 ML IV SCH ×2 (11:15→21:51)
--- NOTE | 2016-05-19 13:06 | MRI ---
PROCEDURE: Magnetic Resonance Cholangiopancreatography HISTORY: Dilated CBD status post cholecystectomy. COMPARISON: Comparison is made to the previous CT dated 04/28/2016 and previous MRCP dated 05/26/2015. TECHNIQUE: Multiplanar, multisequence MR images of the abdomen were obtained, including heavily T2 weighted MRCP images of the biliary system. Rotating maximum intensity projection images of the biliary system were generated. FINDINGS: MRCP: The common bile duct is slightly dilated measures in the proximal portion 10 millimeter. The distal portion of the common bile duct is normal in shape measures 7 millimeter. . No evidence of choledocholithiasis. No intrahepatic biliary ductal dilatation. LIVER: The liver is again mildly enlarged without evidence of suspicious mass. The liver measures 19.2 centimeter in the largest longitudinal diameter. GALLBLADDER: The patient is status post cholecystectomy SPLEEN: Unremarkable. PANCREAS: Unremarkable. ADRENALS: Unremarkable. KIDNEYS: Again seen is 2.5 centimeter cystic lesion exophytic from the upper pole of the right kidney. There is 7.5 millimeter cyst at the mid pole left kidney. No evidence of hydronephrosis. AORTA: No aneurysm. ASCITES: None. OTHER FINDINGS: None. IMPRESSION: Slightly dilated common bile duct likely due to prior cholecystectomy. No evidence of choledocholithiasis. No significant interval change compared to the previous exam.
[2016-05-19] MEDS: (Lantus) Insulin Glargine, Recombinant SC SCH (13:12)
[2016-05-19] MEDS: Sodium Chloride Nasal 0.65% Soln (30ml) NAS SCH ×2 (20:00→22:00)
[2016-05-20] MEDS: HYDROmorphone 1 mg/ml ISec IVP PRN ×6 (00:05→20:57)
[2016-05-20] MEDS: Sodium Chloride Nasal 0.65% Soln (30ml) NAS SCH ×6 (03:15→22:04)
[2016-05-20] MEDS: Sodium Chloride 0.9% 1,000 ML IV SCH ×2 (05:30→12:58)
[2016-05-20 08:09] LABS: BASO % 0.6 % (0.0-2.0); EOS % 0.5 % (0.0-4.0); HEMATOCRIT 30.2 % (34.0-47.0); LYMPH # 0.9 K/uL (1.0-4.3); LYMPH % 20.8 % (20.0-40.0); MEAN CORPUSCULAR HEMOGLOBIN 28.9 pg (27.0-31.0); MEAN CORPUSCULAR HGB CONC 33.2 g/dL (33.0-37.0); MEAN PLATELET VOLUME 8.8 fL (7.2-11.7); MONO # 0.9 K/uL (0.0-0.8); MONO % 21.3 % (0.0-10.0); NRBC % 0.3 % (0.0-2.0); PLATELET COUNT 153 K/uL (130-400); RED CELL DISTRIBUTION WIDTH 17.6 % (11.5-14.5)
[2016-05-20 08:16] LABS: POTASSIUM 3.9 mmol/L (3.6-5.2)
[2016-05-20 08:18] LABS: BILIRUBIN,TOTAL 0.4 mg/dL (0.2-1.3)
[2016-05-20 08:19] LABS: CALCIUM 8.8 mg/dl (8.6-10.4); MAGNESIUM 1.8 mg/dL (1.6-2.3); PHOSPHOROUS 4.2 mg/dL (2.5-4.5)
[2016-05-20 08:21] LABS: WHITE BLOOD COUNT 4.1 K/uL (4.8-10.8)
--- NOTE | 2016-05-20 08:32 | CP.PCM.PN ---
<BetsyYusra - Last Filed: 05/20/16 08:29> Subjective - Date & Time of Evaluation Date of Evaluation: 05/20/16 Time of Evaluation: 08:29 - Subjective Subjective: Gastroenterology Fellow/PGY4 Progress Note Patient denies bowel movement despite 75% consumption of Golytely. Admits to nausea without vomiting. Continues to have chronic right flank pain. A 12-point review of systems negative except for as above. Objective - Vital Signs/Intake and Output Vital Signs (last 24 hours): Temp Pulse Resp BP Pulse Ox 100 F H 100 H 20 125/63 97 05/19/16 23:34 05/19/16 23:34 05/19/16 23:34 05/19/16 23:34 05/19/16 23:34 Intake and Output: 05/20/16 05/20/16 06:59 18:59 Intake Total 1845 Output Total 600 Balance 1245 - Medications Medications: Current Medications Bisacodyl (Dulcolax) 5 mg PO ONCE ONE Stop: 05/20/16 08:28 Diphenhydramine HCl (Benadryl) 50 mg IVP HS PRN PRN Reason: Itching / Pruritus Last Admin: 05/18/16 22:17 Dose: 50 mg Diphenhydramine HCl (Benadryl) 25 mg PO Q4 PRN PRN Reason: Itching / Pruritus Last Admin: 05/20/16 04:15 Dose: 25 mg Hydromorphone HCl (Dilaudid) 4 mg PO Q4H PRN PRN Reason: Pain, severe (8-10) Hydromorphone HCl (Dilaudid) 1 mg IVP Q4H PRN PRN Reason: Pain, severe (8-10) Last Admin: 05/20/16 04:15 Dose: 1 mg Sodium Chloride (Sodium Chloride 0.9%) 1,000 mls @ 75 mls/hr IV .[id number] [facility] Last Admin: 05/20/16 05:30 Dose: 75 mls/hr Insulin Aspart (Novolog) 12 unit SC ACTID [facility] Last Admin: 05/19/16 17:21 Dose: 12 unit Insulin Glargine (Lantus) 20 unit SC DAILY [facility] Last Admin: 05/19/16 13:12 Dose: 20 units Insulin Human Regular (Novolin R) 0 unit SC ACHS [facility] PRN Reason: Protocol Last Admin: 05/19/16 21:47 Dose: Not Given Ondansetron HCl (Zofran Inj) 4 mg IVP Q4H PRN PRN Reason: Nausea/Vomiting Last Admin: 05/17/16 05:07 Dose: 4 mg Oxycodone HCl (Oxycontin Extended Release Tab) 20 mg PO Q12 [facility] Last Admin: 05/19/16 21:46 Dose: 20 mg Pantoprazole Sodium (Protonix Ec Tab) 40 mg PO DAILY [facility] Senna/Docusate Sodium (Senokot S 50 Mg-8.6 Mg) 1 tab PO BID [facility] Last Admin: 05/19/16 17:25 Dose: 1 tab Sodium Chloride ([place] Baby Saline 30 Ml) 1 ml JONAS Q4H [facility] Last Admin: 05/20/16 06:08 Dose: 1 spr Sodium Phosphate (Fleet Enema) 135 ml [place] ONCE ONE Stop: 05/20/16 08:28 Tamsulosin HCl (Flomax) 0.4 mg PO DAILY [facility] Last Admin: 05/19/16 10:22 Dose: 0.4 mg Zinc Acetate/Diphenhydramine (Benadryl 1% Zinc Acetate -0.1%) 0 cre TOP DAILY [facility] Last Admin: 05/19/16 10:23 Dose: 1 applic - Labs Labs: 05/20/16 08:00 05/20/16 08:00 - Constitutional Appears: Non-toxic, No Acute Distress - Head Exam Head Exam: ATRAUMATIC, NORMOCEPHALIC - Eye Exam Eye Exam: EOMI, PERRL Pupil Exam: PERRL. absent: Miosis, Mydriatic - ENT Exam ENT Exam: Mucous Membranes Moist, Normal Oropharynx - Neck Exam Neck Exam: Full ROM, Normal Inspection - Respiratory Exam Respiratory Exam: Clear to Ausculation Bilateral. absent: Rales, Rhonchi, Wheezes - Cardiovascular Exam Cardiovascular Exam: RRR, +S1, +S2. absent: Gallop, Rubs - GI/Abdominal Exam GI & Abdominal Exam: Distended, Soft, Tenderness, Normal Bowel Sounds. absent: Firm, Guarding, Rigid, Mass, Organomegaly, Rebound Additional comments: diffuse tenderness to palpation, RUQ >LUQ; negative McBurney's, Rovsing's, or Chandler's sign - Extremities Exam Extremities Exam: Full ROM, Pedal Edema - Neurological Exam Neurological Exam: Alert, Awake - Psychiatric Exam Psychiatric exam: Normal Affect, Normal Mood - Skin Skin Exam: Dry, Intact, Normal Color, Warm Assessment and Plan - Assessment and Plan (Free Text) Assessment: 50 year old female with history of Diabetes, Hypertension, CKD Stage III, chronic right flank pain, Consipation, toxic megacolon s/p transverse colostomy (10/22/15) with reversal (01/08/16), and 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 Ultrasound showed chronically dilated CBD 1.1cm in setting of cholecystectomy and chronic opioid use. Chronic CBD dilatation Constipation Chronic right flank pain Plan: >MRCP-chronic CBD dilatation, no choledocholithiasis(in setting of cholecystectomy and chronic opioid use) >05/18abdominal xray-severe constipation >refractory to GoLytely >ordered repeat Fleet enema and Dulcolax PO >supportive care: antiemetics, limit opioid use >recommend Relistor, not on [facility] formulary >recommend outpatient follow up for further treatment with Amitiza/Relistor/ Movantik >pain management consult- recommend outpatient evaluation for celiac plexus nerve block >further recommendations based on clinical course <Krish Zafar - Last Filed: 05/20/16 14:18> Objective - Vital Signs/Intake and Output Vital Signs (last 24 hours): Temp Pulse Resp BP Pulse Ox 98.7 F 99 H 20 116/71 98 05/20/16 08:00 05/20/16 08:00 05/20/16 08:00 05/20/16 08:00 05/20/16 08:00 Intake and Output: 05/20/16 05/20/16 06:59 18:59 Intake Total 1845 Output Total 600 Balance 1245 - Medications Medications: Current Medications Diphenhydramine HCl (Benadryl) 50 mg IVP HS PRN PRN Reason: Itching / Pruritus Last Admin: 05/18/16 22:17 Dose: 50 mg Diphenhydramine HCl (Benadryl) 25 mg PO Q4 PRN PRN Reason: Itching / Pruritus Last Admin: 05/20/16 12:49 Dose: 25 mg Hydromorphone HCl (Dilaudid) 4 mg PO Q4H PRN PRN Reason: Pain, severe (8-10) Hydromorphone HCl (Dilaudid) 1 mg IVP Q4H PRN PRN Reason: Pain, severe (8-10) Last Admin: 05/20/16 12:49 Dose: 1 mg Sodium Chloride (Sodium Chloride 0.9%) 1,000 mls @ 75 mls/hr IV .[id number] [facility] Last Admin: 05/20/16 12:58 Dose: Not Given Insulin Aspart (Novolog) 12 unit SC ACTID [facility] Last Admin: 05/20/16 12:57 Dose: 12 unit Insulin Glargine (Lantus) 25 unit SC DAILY [facility] Insulin Human Regular (Novolin R) 0 unit SC ACHS [facility] PRN Reason: Protocol Last Admin: 05/20/16 12:56 Dose: 4 unit Ondansetron HCl (Zofran Inj) 4 mg IVP Q4H PRN PRN Reason: Nausea/Vomiting Last Admin: 05/17/16 05:07 Dose: 4 mg Oxycodone HCl (Oxycontin Extended Release Tab) 20 mg PO Q12 [facility] Last Admin: 05/20/16 10:47 Dose: 20 mg Pantoprazole Sodium (Protonix Ec Tab) 40 mg PO DAILY [facility] Last Admin: 05/20/16 10:46 Dose: 40 mg Senna/Docusate Sodium (Senokot S 50 Mg-8.6 Mg) 1 tab PO BID [facility] Last Admin: 05/20/16 10:45 Dose: 1 tab Sodium Chloride ([place] Baby Saline 30 Ml) 1 ml JONAS Q4H [facility] Last Admin: 05/20/16 10:46 Dose: 1 spr Tamsulosin HCl (Flomax) 0.4 mg PO DAILY [facility] Last Admin: 05/20/16 10:46 Dose: 0.4 mg Zinc Acetate/Diphenhydramine (Benadryl 1% Zinc Acetate -0.1%) 0 cre TOP DAILY [facility] Last Admin: 05/20/16 10:46 Dose: 1 applic - Labs Labs: 05/20/16 08:00 05/20/16 08:00 Attending/Attestation - Attestation I have personally seen and examined this patient.: Yes I have fully participated in the care of the patient.: Yes I have reviewed all pertinent clinical information, including history, physical exam and plan: Yes Notes (Text): 05/20/16 14:14 I have seen and examined patient with GI fellow. No acute events overnight, she still has not had a bowel movement over past 48 hours despite consuming two liters of golytely. She complains of diffuse abdominal pain but denies nausea, vomiting, fever/chills. Tolerating PO diet without difficulty. DM / HTN CKD Stage IV diffuse B-cell lymphoma on chemotherapy Toxic megacolon s/p colostomy and reversal Opioid induced constipation Dilated CBD s/p cholecystectomy - MRCP reviewed by me, no evidence of choledocholithiasis present - Continue with diet as tolerated - Obtain XR abdomen - Mineral oil enema today along with oral dulcolax - Ideally would favor use of Relistor or similar agent, though not available on hospital formulary for use, will continue with aggressive bowel regimen for time being - Will continue to monitor patient clinical course
[2016-05-20] MEDS: (Novolin R) Insulin Human Regular 100 units/ml vial SC SCH ×4 (08:39→22:03)
[2016-05-20] MEDS: (Novolog) Insulin Aspart, Recombinant 100 u/ml 10 ml vial SC SCH ×3 (08:39→17:01)
[2016-05-20] MEDS ORDERED: Bisacodyl 5mg EC Tab PO ONE (08:45)
--- NOTE | 2016-05-20 09:03 | CP.PCM.PN ---
Subjective - Date & Time of Evaluation Date of Evaluation: 05/20/16 Time of Evaluation: 09:01 - Subjective Subjective: PGY-1 note for medicine service Pt seen and examined at bedside. Pt still complaining of right flank pain. She also states she is still constipated. Pt was supposed to be started on Relistor per GI but it is not on [facility] formulary. Pt given Golytely instead, but still no BM despite having finished about 75% of it. Pt also states that she had some chills last night but not currently. Denies chest pain, palpitations, sob, vomiting. Objective - Vital Signs/Intake and Output Vital Signs (last 24 hours): Temp Pulse Resp BP Pulse Ox 98.7 F 99 H 20 116/71 98 05/20/16 08:00 05/20/16 08:00 05/20/16 08:00 05/20/16 08:00 05/20/16 08:00 Intake and Output: 05/20/16 05/20/16 06:59 18:59 Intake Total 1845 Output Total 600 Balance 1245 - Medications Medications: Current Medications Diphenhydramine HCl (Benadryl) 50 mg IVP HS PRN PRN Reason: Itching / Pruritus Last Admin: 05/18/16 22:17 Dose: 50 mg Diphenhydramine HCl (Benadryl) 25 mg PO Q4 PRN PRN Reason: Itching / Pruritus Last Admin: 05/20/16 08:30 Dose: 25 mg Hydromorphone HCl (Dilaudid) 4 mg PO Q4H PRN PRN Reason: Pain, severe (8-10) Hydromorphone HCl (Dilaudid) 1 mg IVP Q4H PRN PRN Reason: Pain, severe (8-10) Last Admin: 05/20/16 08:31 Dose: 1 mg Sodium Chloride (Sodium Chloride 0.9%) 1,000 mls @ 75 mls/hr IV .[id number] [facility] Last Admin: 05/20/16 05:30 Dose: 75 mls/hr Insulin Aspart (Novolog) 12 unit SC ACTID [facility] Last Admin: 05/20/16 08:39 Dose: 12 unit Insulin Glargine (Lantus) 20 unit SC DAILY [facility] Last Admin: 05/19/16 13:12 Dose: 20 units Insulin Human Regular (Novolin R) 0 unit SC ACHS [facility] PRN Reason: Protocol Last Admin: 05/20/16 08:39 Dose: 6 unit Ondansetron HCl (Zofran Inj) 4 mg IVP Q4H PRN PRN Reason: Nausea/Vomiting Last Admin: 05/17/16 05:07 Dose: 4 mg Oxycodone HCl (Oxycontin Extended Release Tab) 20 mg PO Q12 [facility] Last Admin: 05/19/16 21:46 Dose: 20 mg Pantoprazole Sodium (Protonix Ec Tab) 40 mg PO DAILY [facility] Senna/Docusate Sodium (Senokot S 50 Mg-8.6 Mg) 1 tab PO BID [facility] Last Admin: 05/19/16 17:25 Dose: 1 tab Sodium Chloride ([place] Baby Saline 30 Ml) 1 ml JONAS Q4H [facility] Last Admin: 05/20/16 06:08 Dose: 1 spr Tamsulosin HCl (Flomax) 0.4 mg PO DAILY [facility] Last Admin: 05/19/16 10:22 Dose: 0.4 mg Zinc Acetate/Diphenhydramine (Benadryl 1% Zinc Acetate -0.1%) 0 cre TOP DAILY [facility] Last Admin: 05/19/16 10:23 Dose: 1 applic - Labs Labs: 05/20/16 08:00 05/20/16 08:00 - Constitutional Appears: Non-toxic, No Acute Distress, Chronically Ill - Head Exam Head Exam: ATRAUMATIC, NORMOCEPHALIC - Eye Exam Eye Exam: Normal appearance Pupil Exam: PERRL - ENT Exam ENT Exam: Mucous Membranes Moist - Respiratory Exam Respiratory Exam: Clear to Ausculation Bilateral, NORMAL BREATHING PATTERN - Cardiovascular Exam Cardiovascular Exam: +S1, +S2 - GI/Abdominal Exam GI & Abdominal Exam: Soft, Normal Bowel Sounds - Extremities Exam Extremities Exam: Normal Capillary Refill - Neurological Exam Neurological Exam: Alert, Awake - Skin Skin Exam: Dry, Warm Assessment and Plan - Assessment and Plan (Free Text) Assessment: Body aches - Secondary to tumor burden/chemo - Dilaudid 4mg PO Q4H PRN - Benadryl 25mg PO Q4H PRN - Benadryl 50mg PO QHS PRN - Flu neg - f/u palliative care consult for pain management - will change long acting Oxycodone 10mg Q12 - Palliative not able to see pt yet, will consult anesthesia (Casey) for pain management - Per anesthesia - recommends current management as pt is not fully utilizing her PRN meds with her scheduled long acting pain meds. If pain persists, another option outpatient would be a plexus block. Abdominal Pain - Secondary to tumor burden/chemo vs opioid induced constipation vs bile congestion - History of colostomy, then reversal - Zofran 4mg IVP Q6 PRN - Dilaudid 4mg PO Q4H PRN - Benadryl 25mg IV Q4H PRN - Oxycodone 10mg Q12 - f/u palliative care consult - Anesthesia consult (Casey) for pain management - recommends current management as pt is not fully utilizing her PRN meds with her scheduled long acting pain meds. If pain persists, another option outpatient would be a plexus block. - Abdominal US 05/17 - Unremarkable except for CBD dilatation of 1.1cm s/p cholecystectomy - GI consulted - recommends MRCP and abdominal xray. Continue supportive care and will continue to follow pt - Relistor not on formulary, started Golytely with no success yet. - MRCP 05/19 - no choledocholithiasis in setting of dilated CBD s/p cholecystectomy - Abdominal xray 05/18 - severe constipation, non-obstructive gas pattern - Will order fleet mineral oil enema Fevers/Chills - Pt reported fevers and chills last night with Tmax of 100.0 - WBC at 4.1 today, minimal response due to chemo, however, above baseline - Will get repeat blood cultures and UA - Recent urine culture negative Dysuria - Urine Cx 05/17 - negative - Pt complaining of difficult urination, straining - On prior CT, tumor burden found near ureter - UA: 3+ glucose, 1+ protein - Urine culture multiple species, probable contamination. Will repeat today () - f/u - Tamsulosin 0.4mg PO Daily; with this the dysuria is improved Type 2, Diabetes Mellitus - Accuchecks - Increased Lantus to 20 units in AM, Increased Humalog 75/25 12 units ACTID - Hold Metformin 1000mg PO Daily due to renal function - A1C: 7.9 (05/03/16) - c/w current management Diffuse B-Cell lymphoma - Management per Hem/Onc - Hem/Onc: Dr. Machuca, help appreciated - s/p 6 cycle of RCHOP - last day of prednisone 100mg PO given 05/14 - outpatient PET CT scan Palliative Care consult, help appreciated - f/u reccs Dietary Referral, help appreciated - started on heart healthy diet Leukopenia - WBC dropped again, will give another granix shot per heme/onc - WMC count improved. Will continue to follow - f/u labs Hx of HTN - Normotensive in ED - Denies currently taking home BP meds, though listed on recent admission Elevated Bun/Cr - Believed secondary to chemo - patient has had elevated creatinine into the mid 2's in the patient; this is more towards her baseline since chemo Constipation - Miralax Q12H - Senna-Colace Pruritus - Benadryl 25mg PRN Prophylaxis - Heparin 5000units SC Q8H - Protonix 40mg IV Daily - SCDs
[2016-05-20] MEDS: Docusate-Senna 50 mg-8.6 mg Tab PO SCH ×2 (10:45→17:00)
[2016-05-20] MEDS: Diphenhydramine 1% Cream (1 oz) TOP SCH (10:46)
[2016-05-20] MEDS: Pantoprazole 40 mg EC Tab PO SCH (10:46)
[2016-05-20] MEDS: (Lantus) Insulin Glargine, Recombinant SC SCH (10:46)
[2016-05-20] MEDS: oxyCODONE 20 mg ER Tab (oxyCONTIN) PO SCH ×2 (10:47→21:58)
[2016-05-20] MEDS ORDERED: (Lantus) Insulin Glargine, Recombinant SC ONE ×2 (11:24→13:15)
[2016-05-20 12:25] LABS: METAMYELOCYTE 1 % (0-0); MYELOCYTE 2 % (0-0); NEUTROPHIL 40 % (50-75); TOTAL CELLS COUNTED 100
[2016-05-20] MEDS ORDERED: Mineral Oil Enema 135 ml RC ONE (12:26)
--- NOTE | 2016-05-20 15:31 | RAD ---
Abdomen two views History: Constipation. Comparison: 05/18/2016 Findings: Again identified are multiple surgical clips in the right upper abdomen and throughout the mid abdomen consistent with prior surgery. Again identified is moderate to severe fecal retention within the right hemicolon with improved clearing of the feces within the left hemicolon. Few nondistended loops of small bowel seen within the mid lower abdomen. Degenerative changes in the osseous structures. Impression: Persistent moderate to severe fecal retention in the right hemicolon with some interval clearing of stool and feces within the left hemicolon.
[2016-05-20] MEDS: Aluminum Hydroxide/Magnesium Hydroxide Susp (30 mL) PO PRN (20:55)
[2016-05-20 21:49] LABS: URINE BILIRUBIN NEGATIVE (NEGATIVE); URINE BLOOD NEGATIVE (NEGATIVE); URINE COLOR Yellow (YELLOW); URINE GLUCOSE (UA) NORMAL (Normal); URINE KETONE NEGATIVE (NEGATIVE); URINE LEUKOCYTE ESTERASE NEG Leu/uL (Negative); URINE PROTEIN 1+ mg/dL (NEGATIVE); URINE UROBILINOGEN NORMAL mg/dL (0.2-1.0); WBC URINE < 1 /hpf (0-5)
[2016-05-21] MEDS: HYDROmorphone 1 mg/ml ISec IVP PRN ×5 (00:53→21:27)
[2016-05-21] MEDS: DiphenhydrAMINE 50 mg/ml Inj IVP PRN (00:53)
[2016-05-21] MEDS: Sodium Chloride 0.9% 1,000 ML IV SCH ×3 (01:15→18:19)
[2016-05-21] MEDS: Sodium Chloride Nasal 0.65% Soln (30ml) NAS SCH ×6 (03:01→22:05)
[2016-05-21 07:47] LABS: BASO % 0.8 % (0.0-2.0); EOS % 0.9 % (0.0-4.0); HEMATOCRIT 26.7 % (34.0-47.0); LYMPH # 0.6 K/uL (1.0-4.3); LYMPH % 20.1 % (20.0-40.0); MEAN CELL VOLUME 86.1 fL (81.0-99.0); MEAN CORPUSCULAR HEMOGLOBIN 28.6 pg (27.0-31.0); MEAN CORPUSCULAR HGB CONC 33.2 g/dL (33.0-37.0); MEAN PLATELET VOLUME 8.7 fL (7.2-11.7); MONO # 0.9 K/uL (0.0-0.8); MONO % 27.1 % (0.0-10.0); NRBC % 0.3 % (0.0-2.0); PLATELET COUNT 142 K/uL (130-400); RED CELL DISTRIBUTION WIDTH 17.3 % (11.5-14.5); WHITE BLOOD COUNT 3.2 K/uL (4.8-10.8)
[2016-05-21 07:59] LABS: POTASSIUM 4.1 mmol/L (3.6-5.2)
[2016-05-21 08:02] LABS: ALB/GLOB RATIO 1.2 (1.0-2.1); BILIRUBIN,TOTAL 0.2 mg/dL (0.2-1.3); PHOSPHOROUS 4.2 mg/dL (2.5-4.5); TOTAL PROTEIN 6.4 g/dL (6.3-8.3)
[2016-05-21 08:03] LABS: CALCIUM 8.3 mg/dl (8.6-10.4); MAGNESIUM 1.9 mg/dL (1.6-2.3)
[2016-05-21 08:54] LABS: BASOPHIL 1 % (0-2); EOSINOPHIL 2 % (0-4); METAMYELOCYTE 3 % (0-0); MYELOCYTE 2 % (0-0); NEUTROPHIL 28 % (50-75); REACTIVE LYMPHOCYTES 3 % (0-0); TOTAL CELLS COUNTED 100
[2016-05-21] MEDS: (Novolin R) Insulin Human Regular 100 units/ml vial SC SCH ×4 (08:58→22:06)
[2016-05-21] MEDS: (Novolog) Insulin Aspart, Recombinant 100 u/ml 10 ml vial SC SCH ×3 (08:59→17:14)
--- NOTE | 2016-05-21 09:25 | CP.PCM.PN ---
<Yusra Meyer - Last Filed: 05/21/16 09:09> Subjective - Date & Time of Evaluation Date of Evaluation: 05/21/16 Time of Evaluation: 09:12 - Subjective Subjective: Gastroenterology Fellow/PGY4 Progress Note Patient admits to improvement in abdominal pain after two loose bowel movements. A 12-point review of systems negative except for as above. Objective - Vital Signs/Intake and Output Vital Signs (last 24 hours): Temp Pulse Resp BP Pulse Ox 98.6 F 93 H 20 133/84 98 05/21/16 07:47 05/21/16 07:47 05/21/16 07:47 05/21/16 07:47 05/21/16 07:47 Intake and Output: 05/21/16 05/21/16 06:59 18:59 Intake Total 1680 Output Total 700 Balance 980 - Medications Medications: Current Medications Al Hydrox/Mg Hydrox/Simethicone (Maalox 30 Ml) 30 ml PO HS PRN PRN Reason: Indigestion / Heartburn Last Admin: 05/20/16 20:55 Dose: 30 ml Diphenhydramine HCl (Benadryl) 50 mg IVP HS PRN PRN Reason: Itching / Pruritus Last Admin: 05/21/16 00:53 Dose: 50 mg Diphenhydramine HCl (Benadryl) 25 mg PO Q4 PRN PRN Reason: Itching / Pruritus Last Admin: 05/21/16 05:03 Dose: 25 mg Hydromorphone HCl (Dilaudid) 4 mg PO Q4H PRN PRN Reason: Pain, severe (8-10) Hydromorphone HCl (Dilaudid) 1 mg IVP Q4H PRN PRN Reason: Pain, severe (8-10) Last Admin: 05/21/16 05:02 Dose: 1 mg Sodium Chloride (Sodium Chloride 0.9%) 1,000 mls @ 75 mls/hr IV .[id number] [facility] Last Admin: 05/21/16 05:09 Dose: 75 mls/hr Insulin Aspart (Novolog) 12 unit SC ACTID [facility] Last Admin: 05/21/16 08:59 Dose: 12 unit Insulin Glargine (Lantus) 25 unit SC DAILY [facility] Insulin Human Regular (Novolin R) 0 unit SC ACHS [facility] PRN Reason: Protocol Last Admin: 05/21/16 08:58 Dose: 8 unit Ondansetron HCl (Zofran Inj) 4 mg IVP Q4H PRN PRN Reason: Nausea/Vomiting Last Admin: 05/17/16 05:07 Dose: 4 mg Oxycodone HCl (Oxycontin Extended Release Tab) 20 mg PO Q12 [facility] Last Admin: 05/20/16 21:58 Dose: 20 mg Pantoprazole Sodium (Protonix Ec Tab) 40 mg PO DAILY [facility] Last Admin: 05/20/16 10:46 Dose: 40 mg Senna/Docusate Sodium (Senokot S 50 Mg-8.6 Mg) 1 tab PO BID [facility] Last Admin: 05/20/16 17:00 Dose: 1 tab Sodium Chloride ([place] Baby Saline 30 Ml) 1 ml JONAS Q4H [facility] Last Admin: 05/21/16 06:30 Dose: Not Given Tamsulosin HCl (Flomax) 0.4 mg PO DAILY [facility] Last Admin: 05/20/16 10:46 Dose: 0.4 mg Zinc Acetate/Diphenhydramine (Benadryl 1% Zinc Acetate -0.1%) 0 cre TOP DAILY [facility] Last Admin: 05/20/16 10:46 Dose: 1 applic - Labs Labs: 05/21/16 07:40 05/21/16 07:40 - Constitutional Appears: Non-toxic, No Acute Distress - Head Exam Head Exam: ATRAUMATIC, NORMOCEPHALIC - Eye Exam Eye Exam: EOMI, PERRL Pupil Exam: PERRL. absent: Miosis, Mydriatic - ENT Exam ENT Exam: Mucous Membranes Moist, Normal Oropharynx - Neck Exam Neck Exam: Full ROM, Normal Inspection - Respiratory Exam Respiratory Exam: Clear to Ausculation Bilateral. absent: Rales, Rhonchi, Wheezes - Cardiovascular Exam Cardiovascular Exam: +S1, +S2. absent: Gallop, RRR, Rubs - GI/Abdominal Exam GI & Abdominal Exam: Soft, Tenderness, Hernia, Normal Bowel Sounds. absent: Distended, Firm, Guarding, Rigid, Organomegaly, Rebound Additional comments: RUQ ventral hernia, chronic right flank tenderness - Extremities Exam Extremities Exam: Full ROM. 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 Ultrasound showed chronically dilated CBD 1.1cm. MRCP confirmed chronic CBD dilatation, no choledocholithiasis in setting of cholecystectomy and chronic opioid use. Opioid induced constipation Plan: >tolerating diet >counselled on increased fiber and water intake >recommend aggressive bowel regimen: Dulcolax daily, enema as needed >follow up with PCP and pain management to address chronic opioid use >if constipation persist- recommend Relistor as outpatient for opioid induced constipation >Thank you for the opportunity to participate in the care of this patient. Please contact with questions/concerns. <Ashok Mohr - Last Filed: 05/21/16 10:35> Objective - Vital Signs/Intake and Output Vital Signs (last 24 hours): Temp Pulse Resp BP Pulse Ox 98.6 F 93 H 20 133/84 98 05/21/16 07:47 05/21/16 07:47 05/21/16 07:47 05/21/16 07:47 05/21/16 07:47 Intake and Output: 05/21/16 05/21/16 06:59 18:59 Intake Total 1680 Output Total 700 Balance 980 - Medications Medications: Current Medications Al Hydrox/Mg Hydrox/Simethicone (Maalox 30 Ml) 30 ml PO HS PRN PRN Reason: Indigestion / Heartburn Last Admin: 05/20/16 20:55 Dose: 30 ml Diphenhydramine HCl (Benadryl) 50 mg IVP HS PRN PRN Reason: Itching / Pruritus Last Admin: 05/21/16 00:53 Dose: 50 mg Diphenhydramine HCl (Benadryl) 25 mg PO Q4 PRN PRN Reason: Itching / Pruritus Last Admin: 05/21/16 09:11 Dose: 25 mg Hydromorphone HCl (Dilaudid) 4 mg PO Q4H PRN PRN Reason: Pain, severe (8-10) Hydromorphone HCl (Dilaudid) 1 mg IVP Q4H PRN PRN Reason: Pain, severe (8-10) Last Admin: 05/21/16 09:11 Dose: 1 mg Sodium Chloride (Sodium Chloride 0.9%) 1,000 mls @ 75 mls/hr IV .[id number] [facility] Last Admin: 05/21/16 05:09 Dose: 75 mls/hr Insulin Aspart (Novolog) 12 unit SC ACTID [facility] Last Admin: 05/21/16 08:59 Dose: 12 unit Insulin Glargine (Lantus) 25 unit SC DAILY [facility] Last Admin: 05/21/16 10:24 Dose: 25 units Insulin Human Regular (Novolin R) 0 unit SC ACHS [facility] PRN Reason: Protocol Last Admin: 05/21/16 08:58 Dose: 8 unit Ondansetron HCl (Zofran Inj) 4 mg IVP Q4H PRN PRN Reason: Nausea/Vomiting Last Admin: 05/17/16 05:07 Dose: 4 mg Oxycodone HCl (Oxycontin Extended Release Tab) 20 mg PO Q12 [facility] Last Admin: 05/21/16 10:21 Dose: 20 mg Pantoprazole Sodium (Protonix Ec Tab) 40 mg PO DAILY [facility] Last Admin: 05/21/16 10:24 Dose: 40 mg Senna/Docusate Sodium (Senokot S 50 Mg-8.6 Mg) 1 tab PO BID [facility] Last Admin: 05/21/16 10:24 Dose: 1 tab Sodium Chloride ([place] Baby Saline 30 Ml) 1 ml JONAS Q4H [facility] Last Admin: 05/21/16 10:27 Dose: 1 spr Tamsulosin HCl (Flomax) 0.4 mg PO DAILY [facility] Last Admin: 05/21/16 10:24 Dose: 0.4 mg Zinc Acetate/Diphenhydramine (Benadryl 1% Zinc Acetate -0.1%) 0 cre TOP DAILY [facility] Last Admin: 05/21/16 10:25 Dose: 1 applic - Labs Labs: 05/21/16 07:40 05/21/16 07:40 Attending/Attestation - Attestation I have personally seen and examined this patient.: Yes I have fully participated in the care of the patient.: Yes I have reviewed all pertinent clinical information, including history, physical exam and plan: Yes Notes (Text): Patient seen and examined with GI fellow. Agree with her note as documented above with the following additions/exceptions. This is a 50 year old female with history of chronic right flank pain, toxic megacolon s/p transverse colostomy s/p reversal, and diffuse large B cell lymphoma s/p chemo, DM, HTN who presents with worsening chronic flank pain. She has chronically dilated CBD without evidence of obstruction on CBD; her LFTs are normal. She has opiate induced constipation and had BM with enema yesterday. Would continue aggressive bowel regimen, no medication on formulary for opiate induced constipation, which can be initiated as outpatient. Pain management as per primary medical team. Diet as tolerated. Please call with any further questions/concerns. 05/21/16 10:34
[2016-05-21] MEDS ORDERED: (Lantus) Insulin Glargine, Recombinant SC SCH ×2 (10:00→11:35)
[2016-05-21] MEDS: oxyCODONE 20 mg ER Tab (oxyCONTIN) PO SCH (10:21)
[2016-05-21] MEDS: Pantoprazole 40 mg EC Tab PO SCH (10:24)
[2016-05-21] MEDS: Docusate-Senna 50 mg-8.6 mg Tab PO SCH ×2 (10:24→17:13)
[2016-05-21] MEDS: Diphenhydramine 1% Cream (1 oz) TOP SCH (10:25)
[2016-05-21] MEDS ORDERED: (Novolog) Insulin Aspart, Recombinant 100 u/ml 10 ml vial SC SCH (11:35)
--- NOTE | 2016-05-21 17:05 | CP.PCM.PN ---
<Johnny Scott - Last Filed: 05/21/16 17:00> Subjective - Date & Time of Evaluation Date of Evaluation: 05/21/16 Time of Evaluation: 17:01 - Subjective Subjective: PGY-1 note for medicine service Code star called at 08:00. According to staff she was up to use the bathroom when she was observed to lean into the bathroom door and slowly start to go down. Staff intervened and guided her down to the floor. Pt never had LOC and did not hit her head. No xrays indicated as she was guided down by staff and did not strike the ground with any force. I evaluated the pt again later and she states that she was still feeling light headed. She states that earlier she started to see the world go dark and she thought she was going to pass out. Pt observed to be sitting up in bed eating lunch in NAD. She reports improvement in her abdominal pain secondary to having BMs. Denies any fevers, chills, chest pain, sob, nausea or vomiting. Objective - Vital Signs/Intake and Output Vital Signs (last 24 hours): Temp Pulse Resp BP Pulse Ox 98.6 F 93 H 20 133/84 98 05/21/16 07:47 05/21/16 16:08 05/21/16 07:47 05/21/16 07:47 05/21/16 07:47 Intake and Output: 05/21/16 05/21/16 06:59 18:59 Intake Total 1680 Output Total 700 Balance 980 - Medications Medications: Current Medications Al Hydrox/Mg Hydrox/Simethicone (Maalox 30 Ml) 30 ml PO HS PRN PRN Reason: Indigestion / Heartburn Last Admin: 05/20/16 20:55 Dose: 30 ml Diphenhydramine HCl (Benadryl) 50 mg IVP HS PRN PRN Reason: Itching / Pruritus Last Admin: 05/21/16 00:53 Dose: 50 mg Diphenhydramine HCl (Benadryl) 25 mg PO Q4 PRN PRN Reason: Itching / Pruritus Last Admin: 05/21/16 15:24 Dose: 25 mg Hydromorphone HCl (Dilaudid) 2 mg PO Q4H PRN PRN Reason: Pain, severe (8-10) Hydromorphone HCl (Dilaudid) 1 mg IVP Q6H PRN PRN Reason: Pain, severe (8-10) Last Admin: 05/21/16 15:24 Dose: 1 mg Sodium Chloride (Sodium Chloride 0.9%) 1,000 mls @ 75 mls/hr IV .[id number] [facility] Last Admin: 05/21/16 05:09 Dose: 75 mls/hr Insulin Aspart (Novolog) 14 unit SC ACTID [facility] Last Admin: 05/21/16 12:45 Dose: 14 unit Insulin Glargine (Lantus) 30 unit SC DAILY [facility] Insulin Human Regular (Novolin R) 0 unit SC ACHS [facility] PRN Reason: Protocol Last Admin: 05/21/16 12:45 Dose: 6 unit Ondansetron HCl (Zofran Inj) 4 mg IVP Q4H PRN PRN Reason: Nausea/Vomiting Last Admin: 05/17/16 05:07 Dose: 4 mg Oxycodone HCl (Oxycontin Extended Release Tab) 30 mg PO Q12 [facility] Pantoprazole Sodium (Protonix Ec Tab) 40 mg PO DAILY [facility] Last Admin: 05/21/16 10:24 Dose: 40 mg Senna/Docusate Sodium (Senokot S 50 Mg-8.6 Mg) 1 tab PO BID [facility] Last Admin: 05/21/16 10:24 Dose: 1 tab Sodium Chloride ([place] Baby Saline 30 Ml) 1 ml JONAS Q4H [facility] Last Admin: 05/21/16 15:28 Dose: 1 spr Tamsulosin HCl (Flomax) 0.4 mg PO DAILY [facility] Last Admin: 05/21/16 10:24 Dose: 0.4 mg Zinc Acetate/Diphenhydramine (Benadryl 1% Zinc Acetate -0.1%) 0 cre TOP DAILY [facility] Last Admin: 05/21/16 10:25 Dose: 1 applic - Labs Labs: 05/21/16 07:40 05/21/16 07:40 - Constitutional Appears: Non-toxic, No Acute Distress - Head Exam Head Exam: ATRAUMATIC, NORMOCEPHALIC - Eye Exam Eye Exam: Normal appearance Pupil Exam: PERRL - ENT Exam ENT Exam: Mucous Membranes Moist - Respiratory Exam Respiratory Exam: Clear to Ausculation Bilateral, NORMAL BREATHING PATTERN - Cardiovascular Exam Cardiovascular Exam: +S1, +S2 - GI/Abdominal Exam GI & Abdominal Exam: Soft, Normal Bowel Sounds - Neurological Exam Neurological Exam: Alert, Awake - Skin Skin Exam: Dry, Warm Assessment and Plan - Assessment and Plan (Free Text) Assessment: Body aches - Secondary to tumor burden/chemo - Dilaudid adjusted to 2mg PO Q4H and 1mg IVP Q6H in attempt to wean off IV medications - Oxycontin adjust to 30mg PO q12 - Benadryl 25mg PO Q4H PRN - Benadryl 50mg PO QHS PRN - Flu neg - f/u palliative care consult for pain management - Palliative not able to see pt yet, will consult anesthesia (Casey) for pain management - Per anesthesia - recommends current management as pt is not fully utilizing her PRN meds with her scheduled long acting pain meds. If pain persists, another option outpatient would be a plexus block. Abdominal Pain - Secondary to tumor burden/chemo vs opioid induced constipation vs bile congestion - History of colostomy, then reversal - Zofran 4mg IVP Q6 PRN - Dilaudid adjusted to 2mg PO Q4H and 1mg IVP Q6H in attempt to wean off IV medications - Oxycontin adjust to 30mg PO q12 - Benadryl 25mg IV Q4H PRN - f/u palliative care consult - Anesthesia consult (Casey) for pain management - recommends current management as pt is not fully utilizing her PRN meds with her scheduled long acting pain meds. If pain persists, another option outpatient would be a plexus block. - Abdominal US 05/17 - Unremarkable except for CBD dilatation of 1.1cm s/p cholecystectomy - GI consulted - -tolerating diet -counselled on increased fiber and water intake -recommend aggressive bowel regimen: Dulcolax daily, enema as needed -follow up with PCP and pain management to address chronic opioid use -if constipation persist- recommend Relistor as outpatient for opioid induced constipation -Thank you for the opportunity to participate in the care of this patient. Please contact with questions/concerns. - Abdominal xray 05/18 - severe constipation, non-obstructive gas pattern - Will order fleet mineral oil enema Fevers/Chills - 05/21 no fevers or chills reported - Pt reported fevers and chills last night 05/20 with Tmax of 100.0 - Will get repeat blood cultures and UA - Recent urine culture negative Dysuria - Urine Cx 05/17 - negative - Pt complaining of difficult urination, straining - On prior CT, tumor burden found near ureter - UA: 3+ glucose, 1+ protein - Urine culture multiple species, probable contamination. Will repeat today () - f/u - Tamsulosin 0.4mg PO Daily; with this the dysuria is improved Type 2, Diabetes Mellitus - Accuchecks - Increased Lantus to 30 units in AM, Increased Humalog 75/25 14 units ACTID - Hold Metformin 1000mg PO Daily due to renal function - A1C: 7.9 (05/03/16) - c/w current management Diffuse B-Cell lymphoma - Management per Hem/Onc - Hem/Onc: Dr. Machuca, help appreciated - s/p 6 cycle of RCHOP - last day of prednisone 100mg PO given 05/14 - outpatient PET CT scan Palliative Care consult, help appreciated - f/u reccs Dietary Referral, help appreciated - started on heart healthy diet Leukopenia - WBC stable - WMC count improved. Will continue to follow - f/u labs Hx of HTN - Normotensive in ED - Denies currently taking home BP meds, though listed on recent admission Elevated Bun/Cr - Believed secondary to chemo - patient has had elevated creatinine into the mid 2's in the patient; this is more towards her baseline since chemo Constipation - Miralax Q12H - Senna-Colace Pruritus - Benadryl 25mg PRN Prophylaxis - Heparin 5000units SC Q8H - Protonix 40mg IV Daily - SCDs <Chaka Sheffield - Last Filed: 05/22/16 11:37> Objective - Vital Signs/Intake and Output Vital Signs (last 24 hours): Temp Pulse Resp BP Pulse Ox 97.8 F 89 20 161/86 H 97 05/22/16 08:45 05/22/16 08:45 05/22/16 08:45 05/22/16 08:45 05/22/16 08:45 Intake and Output: 05/22/16 05/22/16 06:59 18:59 Intake Total 1800 Output Total 700 Balance 1100 - Medications Medications: Current Medications Al Hydrox/Mg Hydrox/Simethicone (Maalox 30 Ml) 30 ml PO HS PRN PRN Reason: Indigestion / Heartburn Last Admin: 05/20/16 20:55 Dose: 30 ml Diphenhydramine HCl (Benadryl) 50 mg IVP HS PRN PRN Reason: Itching / Pruritus Last Admin: 05/22/16 03:30 Dose: 50 mg Diphenhydramine HCl (Benadryl) 25 mg PO Q4 PRN PRN Reason: Itching / Pruritus Last Admin: 05/21/16 21:27 Dose: 25 mg Hydromorphone HCl (Dilaudid) 2 mg PO Q4H PRN PRN Reason: Pain, severe (8-10) Last Admin: 05/21/16 18:16 Dose: 2 mg Hydromorphone HCl (Dilaudid) 1 mg IVP Q6H PRN PRN Reason: Pain, severe (8-10) Last Admin: 05/22/16 09:39 Dose: 1 mg Sodium Chloride (Sodium Chloride 0.9%) 1,000 mls @ 75 mls/hr IV .[id number] [facility] Last Admin: 05/22/16 08:01 Dose: 75 mls/hr Insulin Aspart (Novolog) 14 unit SC ACTID [facility] Last Admin: 05/22/16 08:39 Dose: 14 unit Insulin Glargine (Lantus) 30 unit SC DAILY [facility] Insulin Human Regular (Novolin R) 0 unit SC ACHS [facility] PRN Reason: Protocol Last Admin: 05/22/16 08:51 Dose: 10 unit Ondansetron HCl (Zofran Inj) 4 mg IVP Q4H PRN PRN Reason: Nausea/Vomiting Last Admin: 05/17/16 05:07 Dose: 4 mg Oxycodone HCl (Oxycontin Extended Release Tab) 30 mg PO Q12 [facility] Last Admin: 05/22/16 09:37 Dose: 30 mg Pantoprazole Sodium (Protonix Ec Tab) 40 mg PO DAILY [facility] Last Admin: 05/22/16 09:38 Dose: 40 mg Senna/Docusate Sodium (Senokot S 50 Mg-8.6 Mg) 1 tab PO BID [facility] Last Admin: 05/22/16 09:38 Dose: 1 tab Sodium Chloride ([place] Baby Saline 30 Ml) 1 ml JONAS Q4H [facility] Last Admin: 05/22/16 06:53 Dose: 1 spr Tamsulosin HCl (Flomax) 0.4 mg PO DAILY [facility] Last Admin: 05/22/16 09:38 Dose: 0.4 mg Zinc Acetate/Diphenhydramine (Benadryl 1% Zinc Acetate -0.1%) 0 cre TOP DAILY [facility] Last Admin: 05/22/16 09:38 Dose: 1 applic - Labs Labs: 05/22/16 08:00 05/22/16 08:00 Attending/Attestation - Attestation I have personally seen and examined this patient.: Yes I have fully participated in the care of the patient.: Yes I have reviewed all pertinent clinical information, including history, physical exam and plan: Yes Notes (Text): Patient with diffuse large B-cell lymphoma, admitted due to intractable R flank and abd pain that has been chronic since ~7 months; Patient suffered near-fall today but was eased to floor by staff; hemodynamically stable; will get PT to evaluate; No more fever/chills after low grade temp yesterday; awaiting blood cultures; Oxycodone ER increased to 30 mg q12h in effort to stop IV dilaudid use; patient encouraged only to use PO dilaudid for breakthrough pain; prn IV dialudid decreased to 1 mg; Patient advised that she may benefit from celiac plexus nerve block done endscopically as outpatient; DM with uncontrolled sugars; will increase lantus from 25 to 30 u daily and increase aspart to 14 u with meals; Dispo: Will seek to d/c home tomorrow after PT eval.
[2016-05-21] MEDS: oxyCODONE 10 mg ER Tab (oxyCONTIN) PO SCH (22:07)
[2016-05-22] MEDS: DiphenhydrAMINE 50 mg/ml Inj IVP PRN ×2 (03:30→21:31)
[2016-05-22] MEDS: HYDROmorphone 1 mg/ml ISec IVP PRN ×4 (03:30→21:35)
[2016-05-22] MEDS: Sodium Chloride Nasal 0.65% Soln (30ml) NAS SCH ×6 (03:40→22:55)
[2016-05-22] MEDS: Sodium Chloride 0.9% 1,000 ML IV SCH ×3 (04:10→21:34)
[2016-05-22 08:08] LABS: BASO % 1.1 % (0.0-2.0); EOS % 1.1 % (0.0-4.0); HEMATOCRIT 26.3 % (34.0-47.0); LYMPH # 0.6 K/uL (1.0-4.3); LYMPH % 21.5 % (20.0-40.0); MEAN CORPUSCULAR HEMOGLOBIN 28.7 pg (27.0-31.0); MEAN PLATELET VOLUME 8.7 fL (7.2-11.7); MONO # 0.8 K/uL (0.0-0.8); MONO % 29.6 % (0.0-10.0); NRBC % 0.8 % (0.0-2.0); PLATELET COUNT 142 K/uL (130-400); RED CELL DISTRIBUTION WIDTH 17.3 % (11.5-14.5); WHITE BLOOD COUNT 2.6 K/uL (4.8-10.8)
[2016-05-22 08:26] LABS: POTASSIUM 4.1 mmol/L (3.6-5.2)
[2016-05-22 08:28] LABS: ALB/GLOB RATIO 1.1 (1.0-2.1); BILIRUBIN,TOTAL 0.2 mg/dL (0.2-1.3)
[2016-05-22 08:29] LABS: CALCIUM 8.4 mg/dl (8.6-10.4); PHOSPHOROUS 4.2 mg/dL (2.5-4.5)
[2016-05-22 08:30] LABS: MAGNESIUM 1.8 mg/dL (1.6-2.3)
[2016-05-22] MEDS: (Novolog) Insulin Aspart, Recombinant 100 u/ml 10 ml vial SC SCH ×3 (08:39→17:41)
[2016-05-22] MEDS: (Novolin R) Insulin Human Regular 100 units/ml vial SC SCH ×4 (08:51→21:48)
[2016-05-22 09:36] LABS: EOSINOPHIL 1 % (0-4); METAMYELOCYTE 1 % (0-0); MYELOCYTE 1 % (0-0); NEUTROPHIL 40 % (50-75); TOTAL CELLS COUNTED 100
[2016-05-22 09:37] LABS: LARGE PLATELETS PRESENT
[2016-05-22] MEDS: oxyCODONE 10 mg ER Tab (oxyCONTIN) PO SCH ×2 (09:37→21:31)
[2016-05-22 09:38] LABS: SPHEROCYTES SLIGHT
[2016-05-22] MEDS: Pantoprazole 40 mg EC Tab PO SCH (09:38)
[2016-05-22] MEDS: Docusate-Senna 50 mg-8.6 mg Tab PO SCH ×2 (09:38→17:42)
[2016-05-22] MEDS: Diphenhydramine 1% Cream (1 oz) TOP SCH (09:38)
--- NOTE | 2016-05-22 22:17 | CP.PCM.PN ---
<PittsDionisio - Last Filed: 05/22/16 22:54> Subjective - Date & Time of Evaluation Date of Evaluation: 05/22/16 Time of Evaluation: 10:00 - Subjective Subjective: PGY-1 note for medicine service 50F with pmh of B cell lymphoma, HTN, GERD, DM presents with chief complaint of generalized body pain. Today, she complains of feeling hot/dry on the right side of her body and cold/wet on the left. There is also ptosis on her right eye. Pt observed to be sitting up in bed eating lunch in NAD. Denies any fevers , chills, chest pain, sob, nausea or vomiting. Objective - Vital Signs/Intake and Output Vital Signs (last 24 hours): Temp Pulse Resp BP Pulse Ox 97.8 F 89 20 161/86 H 97 05/22/16 08:45 05/22/16 08:45 05/22/16 08:45 05/22/16 08:45 05/22/16 08:45 Intake and Output: 05/22/16 05/23/16 18:59 06:59 Intake Total 1000 Balance 1000 - Medications Medications: Current Medications Al Hydrox/Mg Hydrox/Simethicone (Maalox 30 Ml) 30 ml PO HS PRN PRN Reason: Indigestion / Heartburn Last Admin: 05/20/16 20:55 Dose: 30 ml Diphenhydramine HCl (Benadryl) 50 mg IVP HS PRN PRN Reason: Itching / Pruritus Last Admin: 05/22/16 21:31 Dose: 50 mg Diphenhydramine HCl (Benadryl) 25 mg PO Q4 PRN PRN Reason: Itching / Pruritus Last Admin: 05/22/16 14:09 Dose: 25 mg Hydromorphone HCl (Dilaudid) 2 mg PO Q4H PRN PRN Reason: Pain, severe (8-10) Last Admin: 05/21/16 18:16 Dose: 2 mg Hydromorphone HCl (Dilaudid) 1 mg IVP Q6H PRN PRN Reason: Pain, severe (8-10) Last Admin: 05/22/16 21:35 Dose: 1 mg Sodium Chloride (Sodium Chloride 0.9%) 1,000 mls @ 75 mls/hr IV .[id number] [facility] Last Admin: 05/22/16 21:34 Dose: 75 mls/hr Insulin Aspart (Novolog) 14 unit SC ACTID [facility] Last Admin: 05/22/16 17:41 Dose: 14 unit Insulin Glargine (Lantus) 30 unit SC DAILY [facility] Last Admin: 05/22/16 10:45 Dose: 30 u Insulin Human Regular (Novolin R) 0 unit SC ACHS [facility] PRN Reason: Protocol Last Admin: 05/22/16 21:48 Dose: 2 unit Ondansetron HCl (Zofran Inj) 4 mg IVP Q4H PRN PRN Reason: Nausea/Vomiting Last Admin: 05/17/16 05:07 Dose: 4 mg Oxycodone HCl (Oxycontin Extended Release Tab) 30 mg PO Q12 [facility] Last Admin: 05/22/16 21:31 Dose: 30 mg Pantoprazole Sodium (Protonix Ec Tab) 40 mg PO DAILY [facility] Last Admin: 05/22/16 09:38 Dose: 40 mg Senna/Docusate Sodium (Senokot S 50 Mg-8.6 Mg) 1 tab PO BID [facility] Last Admin: 05/22/16 17:42 Dose: 1 tab Sodium Chloride ([place] Baby Saline 30 Ml) 1 ml JONAS Q4H [facility] Last Admin: 05/22/16 21:42 Dose: Not Given Tamsulosin HCl (Flomax) 0.4 mg PO DAILY [facility] Last Admin: 05/22/16 09:38 Dose: 0.4 mg Zinc Acetate/Diphenhydramine (Benadryl 1% Zinc Acetate -0.1%) 0 cre TOP DAILY [facility] Last Admin: 05/22/16 09:38 Dose: 1 applic - Labs Labs: 05/22/16 08:00 05/22/16 08:00 - Constitutional Appears: Non-toxic, No Acute Distress - Head Exam Head Exam: ATRAUMATIC, NORMOCEPHALIC - Eye Exam Eye Exam: EOMI Additional comments: ptosis right eye - ENT Exam ENT Exam: Mucous Membranes Moist - Neck Exam Neck Exam: Full ROM. absent: Lymphadenopathy - Respiratory Exam Respiratory Exam: Clear to Ausculation Bilateral, NORMAL BREATHING PATTERN - Cardiovascular Exam Cardiovascular Exam: +S1, +S2 - GI/Abdominal Exam GI & Abdominal Exam: Soft, Normal Bowel Sounds. absent: Tenderness - Extremities Exam Extremities Exam: Normal Capillary Refill - Neurological Exam Neurological Exam: Alert, Awake, Oriented x3 - Psychiatric Exam Psychiatric exam: Normal Affect, Normal Mood - Skin Skin Exam: Dry, Intact, Normal Color, Warm Assessment and Plan - Assessment and Plan (Free Text) Plan: Body aches - Secondary to tumor burden/chemo - Dilaudid 4mg PO Q4H PRN - Benadryl 25mg PO Q4H PRN - Benadryl 50mg PO QHS PRN - Flu neg - f/u palliative care consult for pain management - will change long acting Oxycodone 10mg Q12 - Palliative not able to see pt yet, will consult anesthesia (Casey) for pain management - Per anesthesia - recommends current management as pt is not fully utilizing her PRN meds with her scheduled long acting pain meds. If pain persists, another option outpatient would be a plexus block. Abdominal Pain - Secondary to tumor burden/chemo vs opioid induced constipation vs bile congestion - History of colostomy, then reversal - Zofran 4mg IVP Q6 PRN - Dilaudid 4mg PO Q4H PRN - Benadryl 25mg IV Q4H PRN - Oxycodone 10mg Q12 - f/u palliative care consult - Anesthesia consult (Casey) for pain management - recommends current management as pt is not fully utilizing her PRN meds with her scheduled long acting pain meds. If pain persists, another option outpatient would be a plexus block. - Abdominal US 05/17 - Unremarkable except for CBD dilatation of 1.1cm s/p cholecystectomy - GI consulted - recommends MRCP and abdominal xray. Continue supportive care and will continue to follow pt - Relistor not on formulary, started Golytely with no success yet. - MRCP 05/19 - no choledocholithiasis in setting of dilated CBD s/p cholecystectomy - Abdominal xray 05/18 - severe constipation, non-obstructive gas pattern - Will order fleet mineral oil enema Fevers/Chills - Pt reported fevers and chills last night with Tmax of 100.0 - WBC at 4.1 today, minimal response due to chemo, however, above baseline - Blood cutlures x2 [id number] 05/20 - Recent urine culture negative - UA negative Dysuria - Urine Cx 05/17 - negative - Pt complaining of difficult urination, straining - On prior CT, tumor burden found near ureter - UA: 3+ glucose, 1+ protein - Urine culture multiple species, probable contamination. Will repeat today () - f/u - Tamsulosin 0.4mg PO Daily; with this the dysuria is improved Type 2, Diabetes Mellitus - Accuchecks - Increased Lantus to 20 units in AM, Increased Humalog 75/25 12 units ACTID - Hold Metformin 1000mg PO Daily due to renal function - A1C: 7.9 (05/03/16) - c/w current management Diffuse B-Cell lymphoma - Management per Hem/Onc - Hem/Onc: Dr. Machuca, help appreciated - Per Heme/Onc, pain is not due to tumor burden as her pain was before her cancer and she is currently in remission. - s/p 6 cycle of RCHOP - last day of prednisone 100mg PO given 05/14 - outpatient PET CT scan in 2 weeks Palliative Care consult, help appreciated - f/u reccs Dietary Referral, help appreciated - started on heart healthy diet Leukopenia - WBC dropped again, will give another granix shot per heme/onc - WMC count improved. Will continue to follow - per Heme/Onc if ANC is <500 can give Filigastrim - f/u labs Hx of HTN - Normotensive in ED - Denies currently taking home BP meds, though listed on recent admission Elevated Bun/Cr - Believed secondary to chemo - patient has had elevated creatinine into the mid 2's in the patient; this is more towards her baseline since chemo Constipation - Miralax Q12H - Senna-Colace Pruritus - Benadryl 25mg PRN Prophylaxis - Heparin 5000units SC Q8H - Protonix 40mg IV Daily - SCDs <Chaka Sheffield - Last Filed: 05/23/16 09:36> Objective - Vital Signs/Intake and Output Vital Signs (last 24 hours): Temp Pulse Resp BP Pulse Ox 98.3 F 79 20 148/79 99 05/23/16 08:10 05/23/16 08:10 05/23/16 08:10 05/23/16 08:10 05/23/16 08:10 Intake and Output: 05/23/16 05/23/16 06:59 18:59 Intake Total 250 Balance 250 - Medications Medications: Current Medications Al Hydrox/Mg Hydrox/Simethicone (Maalox 30 Ml) 30 ml PO HS PRN PRN Reason: Indigestion / Heartburn Last Admin: 05/20/16 20:55 Dose: 30 ml Diphenhydramine HCl (Benadryl) 50 mg IVP HS PRN PRN Reason: Itching / Pruritus Last Admin: 05/22/16 21:31 Dose: 50 mg Diphenhydramine HCl (Benadryl) 25 mg PO Q4 PRN PRN Reason: Itching / Pruritus Last Admin: 05/23/16 03:23 Dose: 25 mg Hydromorphone HCl (Dilaudid) 2 mg PO Q4H PRN PRN Reason: Pain, severe (8-10) Last Admin: 05/21/16 18:16 Dose: 2 mg Hydromorphone HCl (Dilaudid) 1 mg IVP Q6H PRN PRN Reason: Pain, severe (8-10) Last Admin: 05/23/16 03:24 Dose: 1 mg Sodium Chloride (Sodium Chloride 0.9%) 1,000 mls @ 75 mls/hr IV .[id number] [facility] Last Admin: 05/22/16 21:34 Dose: 75 mls/hr Insulin Aspart (Novolog) 14 unit SC ACTID [facility] Last Admin: 05/23/16 08:20 Dose: 14 unit Insulin Glargine (Lantus) 30 unit SC DAILY [facility] Last Admin: 05/22/16 10:45 Dose: 30 u Insulin Human Regular (Novolin R) 0 unit SC ACHS [facility] PRN Reason: Protocol Last Admin: 05/23/16 08:20 Dose: 8 unit Ondansetron HCl (Zofran Inj) 4 mg IVP Q4H PRN PRN Reason: Nausea/Vomiting Last Admin: 05/17/16 05:07 Dose: 4 mg Oxycodone HCl (Oxycontin Extended Release Tab) 30 mg PO Q12 [facility] Last Admin: 05/22/16 21:31 Dose: 30 mg Pantoprazole Sodium (Protonix Ec Tab) 40 mg PO DAILY [facility] Last Admin: 05/22/16 09:38 Dose: 40 mg Senna/Docusate Sodium (Senokot S 50 Mg-8.6 Mg) 1 tab PO BID [facility] Last Admin: 05/22/16 17:42 Dose: 1 tab Sodium Chloride ([place] Baby Saline 30 Ml) 1 ml JONAS Q4H [facility] Last Admin: 05/23/16 08:21 Dose: 1 spr Tamsulosin HCl (Flomax) 0.4 mg PO DAILY [facility] Last Admin: 05/22/16 09:38 Dose: 0.4 mg Zinc Acetate/Diphenhydramine (Benadryl 1% Zinc Acetate -0.1%) 0 cre TOP DAILY [facility] Last Admin: 05/22/16 09:38 Dose: 1 applic - Labs Labs: 05/23/16 08:09 05/23/16 08:09 Attending/Attestation - Attestation I have personally seen and examined this patient.: Yes I have fully participated in the care of the patient.: Yes I have reviewed all pertinent clinical information, including history, physical exam and plan: Yes Notes (Text): Patient with diffuse large B-cell lymphoma, on chemo, admitted for intractable R flank pain (chronic, since 7 months) with extensive workup for etiology unrevealing; Patient had impending fall but broken by staff; PT evaluated patient but found her to be dizzy after walking and recommended against d/c, although gait reportedly stable; Pain only slightly better with addition of long acting opioids, with doses increased gradually; will increase oxycodone ER again from 30 to 40 mg q12h, continue dilaudid PO 2 mg prn and 1 mg IV prn for severe pain; DM uncontrolled; will increase tomorrow's glargine dose from 30 to 36 u; Dispo: Will d/c once PT clears.
[2016-05-23] MEDS: Sodium Chloride Nasal 0.65% Soln (30ml) NAS SCH ×6 (03:24→22:39)
[2016-05-23] MEDS: HYDROmorphone 1 mg/ml ISec IVP PRN ×4 (03:24→22:42)
[2016-05-23 08:18] LABS: BASO % 1.4 % (0.0-2.0); EOS % 1.3 % (0.0-4.0); HEMATOCRIT 26.7 % (34.0-47.0); LYMPH # 0.6 K/uL (1.0-4.3); LYMPH % 20.2 % (20.0-40.0); MEAN CELL VOLUME 85.8 fL (81.0-99.0); MEAN CORPUSCULAR HEMOGLOBIN 28.6 pg (27.0-31.0); MEAN CORPUSCULAR HGB CONC 33.4 g/dL (33.0-37.0); MEAN PLATELET VOLUME 8.4 fL (7.2-11.7); MONO # 0.7 K/uL (0.0-0.8); MONO % 22.7 % (0.0-10.0); NRBC % 0.2 % (0.0-2.0); PLATELET COUNT 180 K/uL (130-400); RED CELL DISTRIBUTION WIDTH 17.3 % (11.5-14.5)
[2016-05-23] MEDS: (Novolog) Insulin Aspart, Recombinant 100 u/ml 10 ml vial SC SCH ×3 (08:20→17:41)
[2016-05-23] MEDS: (Novolin R) Insulin Human Regular 100 units/ml vial SC SCH ×5 (08:20→22:00)
[2016-05-23 08:28] LABS: POTASSIUM 4.4 mmol/L (3.6-5.2)
[2016-05-23 08:31] LABS: BILIRUBIN,TOTAL 0.3 mg/dL (0.2-1.3); CALCIUM 8.5 mg/dl (8.6-10.4); PHOSPHOROUS 4.8 mg/dL (2.5-4.5); TOTAL PROTEIN 6.3 g/dL (6.3-8.3)
[2016-05-23 08:32] LABS: MAGNESIUM 1.8 mg/dL (1.6-2.3)
[2016-05-23] MEDS: Docusate-Senna 50 mg-8.6 mg Tab PO SCH ×2 (09:54→17:44)
[2016-05-23] MEDS: Diphenhydramine 1% Cream (1 oz) TOP SCH (09:54)
[2016-05-23] MEDS: Pantoprazole 40 mg EC Tab PO SCH (09:54)
[2016-05-23 09:57] LABS: EOSINOPHIL 1 % (0-4); TOTAL CELLS COUNTED 100
[2016-05-23 09:58] LABS: NEUTROPHIL 57 % (50-75)
[2016-05-23 10:02] LABS: SPHEROCYTES SLIGHT
[2016-05-23] MEDS: oxyCODONE 40 mg ER Tab (oxyCONTIN) PO SCH ×2 (11:26→21:49)
[2016-05-23] MEDS: (Lantus) Insulin Glargine, Recombinant SC SCH (11:27)
[2016-05-23] MEDS: Sodium Chloride 0.9% 1,000 ML IV SCH ×2 (12:29→22:48)
--- NOTE | 2016-05-23 20:32 | CP.PCM.PN ---
Subjective - Date & Time of Evaluation Date of Evaluation: 05/23/16 Time of Evaluation: 17:00 - Subjective Subjective: Has chronic pain Objective - Vital Signs/Intake and Output Vital Signs (last 24 hours): Temp Pulse Resp BP Pulse Ox 98.3 F 91 H 20 153/89 H 99 05/23/16 16:00 05/23/16 16:00 05/23/16 16:00 05/23/16 16:00 05/23/16 16:00 Intake and Output: 05/23/16 05/24/16 18:59 06:59 Intake Total 1000 Balance 1000 - Medications Medications: Current Medications Al Hydrox/Mg Hydrox/Simethicone (Maalox 30 Ml) 30 ml PO HS PRN PRN Reason: Indigestion / Heartburn Last Admin: 05/20/16 20:55 Dose: 30 ml Diphenhydramine HCl (Benadryl) 50 mg IVP HS PRN PRN Reason: Itching / Pruritus Last Admin: 05/22/16 21:31 Dose: 50 mg Diphenhydramine HCl (Benadryl) 25 mg PO Q4 PRN PRN Reason: Itching / Pruritus Last Admin: 05/23/16 16:23 Dose: 25 mg Hydromorphone HCl (Dilaudid) 2 mg PO Q4H PRN PRN Reason: Pain, severe (8-10) Last Admin: 05/21/16 18:16 Dose: 2 mg Hydromorphone HCl (Dilaudid) 1 mg IVP Q6H PRN PRN Reason: Pain, severe (8-10) Last Admin: 05/23/16 16:24 Dose: 1 mg Sodium Chloride (Sodium Chloride 0.9%) 1,000 mls @ 75 mls/hr IV .[id number] [facility] Last Admin: 05/23/16 12:29 Dose: 75 mls/hr Insulin Aspart (Novolog) 15 unit SC ACTID [facility] Last Admin: 05/23/16 17:41 Dose: 15 unit Insulin Glargine (Lantus) 36 unit SC Q24H [facility] Last Admin: 05/23/16 11:27 Dose: 36 u Insulin Human Regular (Novolin R) 0 unit SC ACHS [facility] PRN Reason: Protocol Last Admin: 05/23/16 17:43 Dose: 1 unit Ondansetron HCl (Zofran Inj) 4 mg IVP Q4H PRN PRN Reason: Nausea/Vomiting Last Admin: 05/17/16 05:07 Dose: 4 mg Oxycodone HCl (Oxycontin Extended Release Tab) 40 mg PO Q12H [facility] Last Admin: 05/23/16 11:26 Dose: 40 mg Pantoprazole Sodium (Protonix Ec Tab) 40 mg PO DAILY [facility] Last Admin: 05/23/16 09:54 Dose: 40 mg Senna/Docusate Sodium (Senokot S 50 Mg-8.6 Mg) 1 tab PO BID [facility] Last Admin: 05/23/16 17:44 Dose: 1 tab Sodium Chloride ([place] Baby Saline 30 Ml) 1 ml JONAS Q4H [facility] Last Admin: 05/23/16 12:29 Dose: 1 spr Tamsulosin HCl (Flomax) 0.4 mg PO DAILY [facility] Last Admin: 05/23/16 09:56 Dose: 0.4 mg Zinc Acetate/Diphenhydramine (Benadryl 1% Zinc Acetate -0.1%) 0 cre TOP DAILY [facility] Last Admin: 05/23/16 09:54 Dose: 1 applic - Labs Labs: 05/23/16 08:09 05/23/16 08:09 - Head Exam Head Exam: ATRAUMATIC - Eye Exam Eye Exam: Normal appearance - ENT Exam ENT Exam: Mucous Membranes Dry - Respiratory Exam Respiratory Exam: NORMAL BREATHING PATTERN - Cardiovascular Exam Cardiovascular Exam: +S1, +S2 - GI/Abdominal Exam GI & Abdominal Exam: Normal Bowel Sounds - Extremities Exam Extremities Exam: Normal Inspection - Neurological Exam Neurological Exam: Oriented x3 - Psychiatric Exam Psychiatric exam: Normal Affect, Normal Mood - Skin Skin Exam: Warm Assessment and Plan (1) Intractable pain Assessment & Plan: pain meds with bowel regimen unclear etiology pain management Status: Acute (2) Anemia Assessment & Plan: chronic disease, ckd s/p chemo Status: Acute (3) Neutropenia Assessment & Plan: resolving Status: Acute (4) Diffuse large B cell lymphoma Assessment & Plan: outpatient PET CT scan Status: Acute
--- NOTE | 2016-05-23 22:09 | CP.PCM.PN ---
Subjective - Date & Time of Evaluation Date of Evaluation: 05/23/16 Time of Evaluation: 07:20 - Subjective Subjective: PGY-1 note for medicine service 50F with pmh of B cell lymphoma, HTN, GERD, DM presents with chief complaint of generalized body pain. Pt observed to be sitting up in bed eating lunch in NAD. Today, she complains of dizziness, abdominal pain and her last BM was 2 days ago. Denies any fevers, chills, chest pain, sob, nausea or vomiting. Objective - Vital Signs/Intake and Output Vital Signs (last 24 hours): Temp Pulse Resp BP Pulse Ox 98.3 F 91 H 20 153/89 H 99 05/23/16 16:00 05/23/16 16:00 05/23/16 16:00 05/23/16 16:00 05/23/16 16:00 Intake and Output: 05/23/16 05/24/16 18:59 06:59 Intake Total 1000 Balance 1000 - Medications Medications: Current Medications Al Hydrox/Mg Hydrox/Simethicone (Maalox 30 Ml) 30 ml PO HS PRN PRN Reason: Indigestion / Heartburn Last Admin: 05/20/16 20:55 Dose: 30 ml Diphenhydramine HCl (Benadryl) 50 mg IVP HS PRN PRN Reason: Itching / Pruritus Last Admin: 05/22/16 21:31 Dose: 50 mg Diphenhydramine HCl (Benadryl) 25 mg PO Q4 PRN PRN Reason: Itching / Pruritus Last Admin: 05/23/16 16:23 Dose: 25 mg Hydromorphone HCl (Dilaudid) 2 mg PO Q4H PRN PRN Reason: Pain, severe (8-10) Last Admin: 05/21/16 18:16 Dose: 2 mg Hydromorphone HCl (Dilaudid) 1 mg IVP Q6H PRN PRN Reason: Pain, severe (8-10) Last Admin: 05/23/16 16:24 Dose: 1 mg Sodium Chloride (Sodium Chloride 0.9%) 1,000 mls @ 75 mls/hr IV .[id number] [facility] Last Admin: 05/23/16 12:29 Dose: 75 mls/hr Insulin Aspart (Novolog) 15 unit SC ACTID [facility] Last Admin: 05/23/16 17:41 Dose: 15 unit Insulin Glargine (Lantus) 36 unit SC Q24H [facility] Last Admin: 05/23/16 11:27 Dose: 36 u Insulin Human Regular (Novolin R) 0 unit SC ACHS [facility] PRN Reason: Protocol Last Admin: 05/23/16 17:43 Dose: 1 unit Ondansetron HCl (Zofran Inj) 4 mg IVP Q4H PRN PRN Reason: Nausea/Vomiting Last Admin: 05/17/16 05:07 Dose: 4 mg Oxycodone HCl (Oxycontin Extended Release Tab) 40 mg PO Q12H [facility] Last Admin: 05/23/16 21:49 Dose: 40 mg Pantoprazole Sodium (Protonix Ec Tab) 40 mg PO DAILY [facility] Last Admin: 05/23/16 09:54 Dose: 40 mg Senna/Docusate Sodium (Senokot S 50 Mg-8.6 Mg) 1 tab PO BID [facility] Last Admin: 05/23/16 17:44 Dose: 1 tab Sodium Chloride ([place] Baby Saline 30 Ml) 1 ml JONAS Q4H [facility] Last Admin: 05/23/16 12:29 Dose: 1 spr Tamsulosin HCl (Flomax) 0.4 mg PO DAILY [facility] Last Admin: 05/23/16 09:56 Dose: 0.4 mg Zinc Acetate/Diphenhydramine (Benadryl 1% Zinc Acetate -0.1%) 0 cre TOP DAILY [facility] Last Admin: 05/23/16 09:54 Dose: 1 applic - Labs Labs: 05/23/16 08:09 05/23/16 08:09 - Constitutional Appears: Non-toxic, No Acute Distress - Head Exam Head Exam: ATRAUMATIC, NORMOCEPHALIC - Eye Exam Eye Exam: EOMI, Normal appearance - ENT Exam ENT Exam: Mucous Membranes Moist - Neck Exam Neck Exam: Full ROM, Normal Inspection - Respiratory Exam Respiratory Exam: Clear to Ausculation Bilateral, NORMAL BREATHING PATTERN - Cardiovascular Exam Cardiovascular Exam: REGULAR RHYTHM, +S1, +S2 - GI/Abdominal Exam GI & Abdominal Exam: Soft, Tenderness, Normal Bowel Sounds - Extremities Exam Extremities Exam: Full ROM - Neurological Exam Neurological Exam: Alert, Awake, Oriented x3 - Psychiatric Exam Psychiatric exam: Normal Affect, Normal Mood - Skin Skin Exam: Dry, Intact, Normal Color, Warm Assessment and Plan - Assessment and Plan (Free Text) Plan: Body aches - Secondary to tumor burden/chemo - Dilaudid 4mg PO Q4H PRN - Benadryl 25mg PO Q4H PRN - Benadryl 50mg PO QHS PRN - Flu neg - f/u palliative care consult for pain management - will change long acting Oxycodone 10mg Q12 - Palliative not able to see pt yet, will consult anesthesia (Casey) for pain management - Per anesthesia - recommends current management as pt is not fully utilizing her PRN meds with her scheduled long acting pain meds. If pain persists, another option outpatient would be a plexus block. Abdominal Pain - Secondary to tumor burden/chemo vs opioid induced constipation vs bile congestion - History of colostomy, then reversal - Zofran 4mg IVP Q6 PRN - Dilaudid 4mg PO Q4H PRN - Benadryl 25mg IV Q4H PRN - increasesd Oxycodone ER to 40mg Q12 - f/u palliative care consult - Anesthesia consult (Casey) for pain management - recommends current management as pt is not fully utilizing her PRN meds with her scheduled long acting pain meds. If pain persists, another option outpatient would be a plexus block. - Abdominal US 05/17 - Unremarkable except for CBD dilatation of 1.1cm s/p cholecystectomy - GI consulted - recommends MRCP and abdominal xray. Continue supportive care and will continue to follow pt - Relistor not on formulary, started Golytely with no success yet. - MRCP 05/19 - no choledocholithiasis in setting of dilated CBD s/p cholecystectomy - Abdominal xray 05/18 - severe constipation, non-obstructive gas pattern - Will order fleet mineral oil enema Fevers/Chills - Pt reported fevers and chills last night with Tmax of 100.0 - WBC at 4.1 today, minimal response due to chemo, however, above baseline - Blood cutlures x2 [id number] 05/20 - Recent urine culture negative - UA negative Dysuria - Urine Cx 05/17 - negative - Pt complaining of difficult urination, straining - On prior CT, tumor burden found near ureter - UA: 3+ glucose, 1+ protein - Urine culture multiple species, probable contamination. Will repeat today () - f/u - Tamsulosin 0.4mg PO Daily; with this the dysuria is improved Type 2, Diabetes Mellitus - Accuchecks - 05/23 Increased Lantus to 36 units in AM, Increased Novalog 15 units ACTID - Hold Metformin 1000mg PO Daily due to renal function - A1C: 7.9 (05/03/16) - c/w current management Diffuse B-Cell lymphoma - Management per Hem/Onc - Hem/Onc: Dr. Machuca, help appreciated - Per Heme/Onc, pain is not due to tumor burden as her pain was before her cancer and she is currently in remission. - s/p 6 cycle of RCHOP - last day of prednisone 100mg PO given 05/14 - outpatient PET CT scan in 2 weeks Palliative Care consult, help appreciated - f/u reccs Dietary Referral, help appreciated - started on heart healthy diet Leukopenia - WBC dropped again, will give another granix shot per heme/onc - WMC count improved. Will continue to follow - per Heme/Onc if ANC is <500 can give Filigastrim - f/u labs Hx of HTN - Normotensive in ED - Denies currently taking home BP meds, though listed on recent admission Elevated Bun/Cr - Believed secondary to chemo - patient has had elevated creatinine into the mid 2's in the patient; this is more towards her baseline since chemo Constipation - Miralax Q12H - Senna-Colace Pruritus - Benadryl 25mg PRN Prophylaxis - Heparin 5000units SC Q8H - Protonix 40mg IV Daily - SCDs
[2016-05-23] MEDS: DiphenhydrAMINE 50 mg/ml Inj IVP PRN (22:39)
[2016-05-24] MEDS: Sodium Chloride Nasal 0.65% Soln (30ml) NAS SCH ×6 (03:00→23:44)
[2016-05-24] MEDS: HYDROmorphone 1 mg/ml ISec IVP PRN ×2 (04:48→10:40)
[2016-05-24 08:48] LABS: BASO # 0.1 K/uL (0.0-0.2); BASO % 1.2 % (0.0-2.0); EOS % 0.8 % (0.0-4.0); LYMPH # 0.9 K/uL (1.0-4.3); LYMPH % 22.5 % (20.0-40.0); MEAN CORPUSCULAR HEMOGLOBIN 28.7 pg (27.0-31.0); MEAN CORPUSCULAR HGB CONC 33.4 g/dL (33.0-37.0); MEAN PLATELET VOLUME 8.3 fL (7.2-11.7); MONO # 0.8 K/uL (0.0-0.8); MONO % 19.1 % (0.0-10.0); NRBC % 0.1 % (0.0-2.0); RED CELL DISTRIBUTION WIDTH 17.1 % (11.5-14.5); WHITE BLOOD COUNT 4.2 K/uL (4.8-10.8)
[2016-05-24 08:56] LABS: POTASSIUM 4.3 mmol/L (3.6-5.2)
[2016-05-24 08:59] LABS: ALB/GLOB RATIO 1.1 (1.0-2.1); BILIRUBIN,TOTAL 0.2 mg/dL (0.2-1.3); PHOSPHOROUS 5.1 mg/dL (2.5-4.5); TOTAL PROTEIN 6.7 g/dL (6.3-8.3)
[2016-05-24 09:00] LABS: CALCIUM 8.8 mg/dl (8.6-10.4); MAGNESIUM 1.7 mg/dL (1.6-2.3)
[2016-05-24] MEDS: (Novolin R) Insulin Human Regular 100 units/ml vial SC SCH ×4 (09:00→21:37)
[2016-05-24] MEDS: (Novolog) Insulin Aspart, Recombinant 100 u/ml 10 ml vial SC SCH ×2 (09:01→17:11)
[2016-05-24] MEDS: (Lantus) Insulin Glargine, Recombinant SC SCH ×2 (10:41→15:33)
[2016-05-24] MEDS: Docusate-Senna 50 mg-8.6 mg Tab PO SCH ×2 (10:47→21:36)
[2016-05-24] MEDS: Pantoprazole 40 mg EC Tab PO SCH (10:47)
[2016-05-24] MEDS: Diphenhydramine 1% Cream (1 oz) TOP SCH (10:48)
[2016-05-24] MEDS: oxyCODONE 40 mg ER Tab (oxyCONTIN) PO SCH ×2 (10:48→21:36)
--- NOTE | 2016-05-24 12:40 | CP.PCM.CON ---
History of Present Illness - History of Present Illness History of Present Illness: Requested by PMD to see this patient for palliative care consult and pain management. HPI This is a 50 yo female who was diagnosed with B cell lymphoma in Dec 2015 and is currently recieving chemo and is responding well. Patient has had right low back pain radiating to right groin for over a year with no minimal relief. Patient was started on oxycontin which has been increased to 40 mg q12 with dilaudid 1 mg iv prn for breaktrhough which she is recieving approx 3 times per day. She gets minimal relief with Dilaudid 2 mg po prn. Review of Systems - Review of Systems All systems: reviewed and no additional remarkable complaints except - Constitutional Constitutional: Weight Loss Additional comments: lost 70 pounds in past 9 months - Gastrointestinal Gastrointestinal: Constipation - Musculoskeletal Musculoskeletal: Back Pain Past Patient History - Infectious Disease Hx of Infectious Diseases: None - Past Medical History & Family History Past Medical History?: Yes - Past Social History Smoking Status: Never Smoked - CARDIAC Hx Hypertension: Yes - PULMONARY Hx Respiratory Disorders: No - NEUROLOGICAL Hx Neurological Disorder: No - HEENT Hx HEENT Problems: No - RENAL Hx Chronic Kidney Disease: No - ENDOCRINE/METABOLIC Hx Diabetes Mellitus Type 2: Yes - HEMATOLOGICAL/ONCOLOGICAL Hx Blood Transfusions: Yes (04/26) Hx Cancer: Yes Other/Comment: stomach, lung, liver. - INTEGUMENTARY Hx Dermatological Problems: No - MUSCULOSKELETAL/RHEUMATOLOGICAL Hx Arthritis: Yes (BACK AND KNEE PAIN) - GASTROINTESTINAL Hx Gall Bladder Disease: Yes (cholecystectomy 3 yrs. ago) Hx Pancreatitis: Yes - GENITOURINARY/GYNECOLOGICAL Hx Genitourinary Disorders: No - PSYCHIATRIC Hx Anxiety: Yes Hx Substance Use: No - SURGICAL HISTORY Hx Cholecystectomy: Yes - ANESTHESIA Hx Anesthesia: Yes Hx Anesthesia Reactions: No Hx Malignant Hyperthermia: No Meds Allergies/Adverse Reactions: Allergies Allergy/AdvReac Type Severity Reaction Status Date / Time Penicillins Allergy Verified 05/13/16 14:42 morphine AdvReac ITCHING Verified 05/13/16 14:42 - Medications Medications: Current Medications Al Hydrox/Mg Hydrox/Simethicone (Maalox 30 Ml) 30 ml PO HS PRN PRN Reason: Indigestion / Heartburn Last Admin: 05/20/16 20:55 Dose: 30 ml Diphenhydramine HCl (Benadryl) 50 mg IVP HS PRN PRN Reason: Itching / Pruritus Last Admin: 05/23/16 22:39 Dose: 50 mg Diphenhydramine HCl (Benadryl) 25 mg PO Q4 PRN PRN Reason: Itching / Pruritus Last Admin: 05/24/16 10:48 Dose: 25 mg Hydromorphone HCl (Dilaudid) 2 mg PO Q4H PRN PRN Reason: Pain, severe (8-10) Last Admin: 05/21/16 18:16 Dose: 2 mg Insulin Aspart (Novolog) 16 unit SC ACTID [facility] Insulin Glargine (Lantus) 40 unit SC Q24H [facility] Insulin Human Regular (Novolin R) 0 unit SC ACHS [facility] PRN Reason: Protocol Last Admin: 05/24/16 09:00 Dose: 6 unit Ondansetron HCl (Zofran Inj) 4 mg IVP Q4H PRN PRN Reason: Nausea/Vomiting Last Admin: 05/17/16 05:07 Dose: 4 mg Oxycodone HCl (Oxycontin Extended Release Tab) 40 mg PO Q12H [facility] Last Admin: 05/24/16 10:48 Dose: 40 mg Pantoprazole Sodium (Protonix Ec Tab) 40 mg PO DAILY [facility] Last Admin: 05/24/16 10:47 Dose: 40 mg Senna/Docusate Sodium (Senokot S 50 Mg-8.6 Mg) 1 tab PO BID [facility] Last Admin: 05/24/16 10:47 Dose: 1 tab Sodium Chloride ([place] Baby Saline 30 Ml) 1 ml JONAS Q4H [facility] Last Admin: 05/24/16 10:49 Dose: Not Given Zinc Acetate/Diphenhydramine (Benadryl 1% Zinc Acetate -0.1%) 0 cre TOP DAILY [facility] Last Admin: 05/24/16 10:48 Dose: Not Given Physical Exam - Constitutional Appears: No Acute Distress - Head Exam Head Exam: ATRAUMATIC, NORMAL INSPECTION, NORMOCEPHALIC - Eye Exam Eye Exam: Normal appearance - ENT Exam ENT Exam: Mucous Membranes Moist - Neck Exam Neck exam: Positive for: Normal Inspection - Respiratory Exam Respiratory Exam: Clear to Auscultation Bilateral, NORMAL BREATHING PATTERN - Cardiovascular Exam Cardiovascular Exam: REGULAR RHYTHM, +S1, +S2 - GI/Abdominal Exam GI & Abdominal Exam: Hypoactive Bowel Sounds, Soft, Tenderness - Rectal Exam Rectal Exam: Deferred - Extremities Exam Extremities exam: Positive for: normal inspection - Back Exam Back exam: paraspinal tenderness - Neurological Exam Neurological exam: Alert, Oriented x3 Additional comments: tenderness to right paravertebral area and trigger points with severe pain to right buttock which casues radiating pain to right groin. - Psychiatric Exam Psychiatric exam: Normal Affect, Normal Mood - Skin Skin Exam: Dry, Normal Color, Warm Results - Vital Signs Recent Vital Signs: Last Vital Signs Temp 98.0 F 05/24/16 08:20 Pulse 88 05/24/16 11:48 Resp 20 05/24/16 08:20 BP 140/98 H 05/24/16 08:20 Pulse Ox 98 05/24/16 08:20 - Labs Result Diagrams: 05/24/16 08:30 05/24/16 08:30 Labs: Laboratory Results - last 24 hr 05/23/16 05/23/16 05/24/16 16:10 21:09 07:14 WBC RBC Hgb Hct MCV MCH MCHC RDW Plt Count MPV Neut % (Auto) Lymph % (Auto) Mayes % (Auto) Eos % (Auto) Baso % (Auto) Neut # Lymph # Mayes # Eos # Baso # Sodium Potassium Chloride Carbon Dioxide Anion Gap BUN Creatinine Est GFR ( Amer) Est GFR (Non-Af Amer) POC Glucose (mg/dL) 239 H 250 H 295 H Random Glucose Calcium Phosphorus Magnesium Total Bilirubin AST ALT Alkaline Phosphatase Total Protein Albumin Globulin Albumin/Globulin Ratio 05/24/16 05/24/16 08:30 11:10 WBC 4.2 L RBC 3.49 L Hgb 10.0 L Hct 30.0 L MCV 86.0 MCH 28.7 MCHC 33.4 RDW 17.1 H Plt Count 251 MPV 8.3 Neut % (Auto) 56.4 Lymph % (Auto) 22.5 Mayes % (Auto) 19.1 H Eos % (Auto) 0.8 Baso % (Auto) 1.2 Neut # 2.3 Lymph # 0.9 L Mayes # 0.8 Eos # 0.0 Baso # 0.1 Sodium 132 Potassium 4.3 Chloride 93 L Carbon Dioxide 24 Anion Gap 19 BUN 19 H Creatinine 1.4 H Est GFR ( Amer) 48 Est GFR (Non-Af Amer) 40 POC Glucose (mg/dL) 194 H Random Glucose 257 H Calcium 8.8 Phosphorus 5.1 H Magnesium 1.7 Total Bilirubin 0.2 AST 22 ALT 13 Alkaline Phosphatase 68 Total Protein 6.7 Albumin 3.5 Globulin 3.1 Albumin/Globulin Ratio 1.1 Assessment & Plan (1) Diffuse large B cell lymphoma Assessment and Plan: Neuropathic pain to L4L5 right distribution- 1. Continue Oxycontin 40 q12 qnd increase to 60 q12 once tolerating neurontin 2. Start neurontin 200 mg bid and titrate up as tolderated to 900 mg day or more 3. Lidoderm patch to back area 4. Call placed to [facility] to get forms for compassionate use for oxycontin 5. consider MRI of LS spine to RO nerve involvement Discussed with Dr. Sheffield, Constipation Start colace 200 mg bid Senna 2 tabs hs Status: Acute
[2016-05-24] MEDS: Sodium Chloride 0.9% 1,000 ML IV SCH (13:04)
[2016-05-24] MEDS: Lidocaine 5% Patch TD SCH (15:43)
--- NOTE | 2016-05-24 17:05 | CP.PCM.PN ---
<Johnny Scott - Last Filed: 05/24/16 16:58> Subjective - Date & Time of Evaluation Date of Evaluation: 05/24/16 Time of Evaluation: 16:58 - Subjective Subjective: PGY-1 note for medicine service Pt seen and examined at bedside. Pt states that the right side of her jaw is painful and swollen. She first noticed it last night. She states she had some subjective fevers throughout the night as well. No other new complaints. Denies chest pain, sob, palpitations, nausea or vomiting. Objective - Vital Signs/Intake and Output Vital Signs (last 24 hours): Temp Pulse Resp BP Pulse Ox 98.0 F 93 H 20 146/88 99 05/24/16 15:00 05/24/16 15:00 05/24/16 15:00 05/24/16 15:00 05/24/16 15:00 Intake and Output: 05/24/16 05/24/16 06:59 18:59 Intake Total 600 450 Balance 600 450 - Medications Medications: Current Medications Al Hydrox/Mg Hydrox/Simethicone (Maalox 30 Ml) 30 ml PO HS PRN PRN Reason: Indigestion / Heartburn Last Admin: 05/20/16 20:55 Dose: 30 ml Diphenhydramine HCl (Benadryl) 50 mg IVP HS PRN PRN Reason: Itching / Pruritus Last Admin: 05/23/16 22:39 Dose: 50 mg Diphenhydramine HCl (Benadryl) 25 mg PO Q4 PRN PRN Reason: Itching / Pruritus Last Admin: 05/24/16 10:48 Dose: 25 mg Gabapentin (Neurontin) 200 mg PO BID [facility] Hydromorphone HCl (Dilaudid) 2 mg PO Q4H PRN PRN Reason: Pain, severe (8-10) Last Admin: 05/21/16 18:16 Dose: 2 mg Insulin Aspart (Novolog) 16 unit SC ACTID [facility] Insulin Glargine (Lantus) 40 unit SC Q24H [facility] Last Admin: 05/24/16 15:33 Dose: Not Given Insulin Human Regular (Novolin R) 0 unit SC ACHS [facility] PRN Reason: Protocol Last Admin: 05/24/16 13:03 Dose: 10 unit Lidocaine (Lidoderm) 2 ea TD DAILY [facility] Last Admin: 05/24/16 15:43 Dose: 2 ea Ondansetron HCl (Zofran Inj) 4 mg IVP Q4H PRN PRN Reason: Nausea/Vomiting Last Admin: 05/17/16 05:07 Dose: 4 mg Oxycodone HCl (Oxycontin Extended Release Tab) 40 mg PO Q12H [facility] Last Admin: 05/24/16 10:48 Dose: 40 mg Pantoprazole Sodium (Protonix Ec Tab) 40 mg PO DAILY [facility] Last Admin: 05/24/16 10:47 Dose: 40 mg Senna/Docusate Sodium (Senokot S 50 Mg-8.6 Mg) 2 tab PO BID [facility] Sodium Chloride ([place] Baby Saline 30 Ml) 1 ml JONAS Q4H [facility] Last Admin: 05/24/16 15:30 Dose: Not Given Zinc Acetate/Diphenhydramine (Benadryl 1% Zinc Acetate -0.1%) 0 cre TOP DAILY [facility] Last Admin: 05/24/16 10:48 Dose: Not Given - Labs Labs: 05/24/16 08:30 05/24/16 08:30 - Constitutional Appears: Non-toxic, No Acute Distress, Chronically Ill - ENT Exam ENT Exam: Mucous Membranes Moist Additional comments: Kenny swelling submandibular on the left side. Mild pain to palpation - Respiratory Exam Respiratory Exam: Clear to Ausculation Bilateral, NORMAL BREATHING PATTERN - Cardiovascular Exam Cardiovascular Exam: +S1, +S2 - GI/Abdominal Exam GI & Abdominal Exam: Soft, Tenderness, Normal Bowel Sounds - Neurological Exam Neurological Exam: Alert, Awake - Skin Skin Exam: Dry, Warm Assessment and Plan - Assessment and Plan (Free Text) Assessment: Left sided facial swelling - No leukocytosis or fevers documented - Will apply warm compresses - Continue to monitor Body aches - Secondary to tumor burden/chemo - Dilaudid 4mg PO Q4H PRN - Benadryl 25mg PO Q4H PRN - Benadryl 50mg PO QHS PRN - Flu neg - f/u palliative care consult for pain management - will change long acting Oxycodone 10mg Q12 - Palliative not able to see pt yet, will consult anesthesia (Casey) for pain management - Per anesthesia - recommends current management as pt is not fully utilizing her PRN meds with her scheduled long acting pain meds. If pain persists, another option outpatient would be a plexus block. Abdominal Pain - Secondary to tumor burden/chemo vs opioid induced constipation vs bile congestion - History of colostomy, then reversal - Zofran 4mg IVP Q6 PRN - Dilaudid 4mg PO Q4H PRN - Benadryl 25mg IV Q4H PRN - increasesd Oxycodone ER to 40mg Q12 - f/u palliative care consult - Anesthesia consult (Casey) for pain management - recommends current management as pt is not fully utilizing her PRN meds with her scheduled long acting pain meds. If pain persists, another option outpatient would be a plexus block. - Abdominal US 05/17 - Unremarkable except for CBD dilatation of 1.1cm s/p cholecystectomy - GI consulted - recommends MRCP and abdominal xray. Continue supportive care and will continue to follow pt - Relistor not on formulary, started Golytely with no success yet. - MRCP 05/19 - no choledocholithiasis in setting of dilated CBD s/p cholecystectomy - Abdominal xray 05/18 - severe constipation, non-obstructive gas pattern - Will order fleet mineral oil enema Fevers/Chills - resolved - Blood cutlures x2 [id number] 05/20 - Recent urine culture negative - UA negative Dysuria - Urine Cx 05/17 - negative - Pt complaining of difficult urination, straining - On prior CT, tumor burden found near ureter - UA: 3+ glucose, 1+ protein - Urine culture multiple species, probable contamination. Will repeat today () - f/u - Tamsulosin 0.4mg PO Daily; with this the dysuria is improved Type 2, Diabetes Mellitus - Accuchecks - 05/24 Increased Lantus to 40 units in AM, Increased Novalog 16 units ACTID - Hold Metformin 1000mg PO Daily due to renal function - A1C: 7.9 (05/03/16) - c/w current management Diffuse B-Cell lymphoma - Management per Hem/Onc - Hem/Onc: Dr. Machuca, help appreciated - Per Heme/Onc, pain is not due to tumor burden as her pain was before her cancer and she is currently in remission. - s/p 6 cycle of RCHOP - last day of prednisone 100mg PO given 05/14 - outpatient PET CT scan in 2 weeks Palliative Care consult, help appreciated - f/u reccs Dietary Referral, help appreciated - started on heart healthy diet Leukopenia - WBC stable. Will continue to follow - per Heme/Onc if ANC is <500 can give Filigastrim - f/u labs Hx of HTN - Normotensive - Denies currently taking home BP meds, though listed on recent admission Elevated Bun/Cr - Believed secondary to chemo - patient has had elevated creatinine into the mid 2's in the patient; this is more towards her baseline since chemo Constipation - Miralax Q12H - Senna-Colace Pruritus - Benadryl 25mg PRN Prophylaxis - Heparin 5000units SC Q8H - Protonix 40mg IV Daily - SCDs Dispo - On discharge, pt needs pain medication that is expensive. Will attempt to get pain medication cheaper through [employer] program <Chaka Sheffield - Last Filed: 05/24/16 19:27> Objective - Vital Signs/Intake and Output Vital Signs (last 24 hours): Temp Pulse Resp BP Pulse Ox 98.0 F 93 H 20 146/88 99 05/24/16 15:00 05/24/16 18:35 05/24/16 15:00 05/24/16 15:00 05/24/16 15:00 Intake and Output: 05/24/16 05/25/16 18:59 06:59 Intake Total 450 Balance 450 - Medications Medications: Current Medications Al Hydrox/Mg Hydrox/Simethicone (Maalox 30 Ml) 30 ml PO HS PRN PRN Reason: Indigestion / Heartburn Last Admin: 05/20/16 20:55 Dose: 30 ml Diphenhydramine HCl (Benadryl) 50 mg IVP HS PRN PRN Reason: Itching / Pruritus Last Admin: 05/23/16 22:39 Dose: 50 mg Diphenhydramine HCl (Benadryl) 25 mg PO Q4 PRN PRN Reason: Itching / Pruritus Last Admin: 05/24/16 17:15 Dose: 25 mg Gabapentin (Neurontin) 200 mg PO BID [facility] Last Admin: 05/24/16 17:12 Dose: 200 mg Hydromorphone HCl (Dilaudid) 2 mg PO Q4H PRN PRN Reason: Pain, severe (8-10) Last Admin: 05/24/16 17:01 Dose: 2 mg Insulin Aspart (Novolog) 16 unit SC ACTID [facility] Last Admin: 05/24/16 17:11 Dose: 16 unit Insulin Glargine (Lantus) 40 unit SC Q24H [facility] Last Admin: 05/24/16 15:33 Dose: Not Given Insulin Human Regular (Novolin R) 0 unit SC ACHS [facility] PRN Reason: Protocol Last Admin: 05/24/16 17:11 Dose: 6 unit Lidocaine (Lidoderm) 2 ea TD DAILY [facility] Last Admin: 05/24/16 15:43 Dose: 2 ea Ondansetron HCl (Zofran Inj) 4 mg IVP Q4H PRN PRN Reason: Nausea/Vomiting Last Admin: 05/17/16 05:07 Dose: 4 mg Oxycodone HCl (Oxycontin Extended Release Tab) 40 mg PO Q12H [facility] Last Admin: 05/24/16 10:48 Dose: 40 mg Pantoprazole Sodium (Protonix Ec Tab) 40 mg PO DAILY [facility] Last Admin: 05/24/16 10:47 Dose: 40 mg Senna/Docusate Sodium (Senokot S 50 Mg-8.6 Mg) 2 tab PO BID [facility] Sodium Chloride ([place] Baby Saline 30 Ml) 1 ml JONAS Q4H [facility] Last Admin: 05/24/16 15:30 Dose: Not Given Zinc Acetate/Diphenhydramine (Benadryl 1% Zinc Acetate -0.1%) 0 cre TOP DAILY [facility] Last Admin: 05/24/16 10:48 Dose: Not Given - Labs Labs: 05/24/16 08:30 05/24/16 08:30 Attending/Attestation - Attestation I have personally seen and examined this patient.: Yes I have fully participated in the care of the patient.: Yes I have reviewed all pertinent clinical information, including history, physical exam and plan: Yes Notes (Text): Patient with diffuse large B-cell lymphoma, on chemo, admitted for intractable R flank/abdominal pain; Patient complaining of pain over L lower face; swelling/tenderness just superior to L lower mandibular area; non-erythematous; likely parotitis, will apply warm compresses; Palliative care input appreciated today regarding pain; recommending starting gabapentin with upward titration of dose; DM with sugars better controlled but still elevated; increasing lantus to 40 u daily and aspart to 16 u ac; Dispo: Patient needs to have steady gait before d/c (unsteady on PT eval 2 days ago). 05/24/16 19:21
[2016-05-25] MEDS: DiphenhydrAMINE 50 mg/ml Inj IVP PRN ×2 (00:10→21:51)
[2016-05-25] MEDS: Sodium Chloride Nasal 0.65% Soln (30ml) NAS SCH ×5 (03:00→21:51)
[2016-05-25] MEDS: (Novolog) Insulin Aspart, Recombinant 100 u/ml 10 ml vial SC SCH ×3 (08:07→16:28)
[2016-05-25] MEDS: (Novolin R) Insulin Human Regular 100 units/ml vial SC SCH ×3 (08:17→16:28)
[2016-05-25] MEDS: oxyCODONE 40 mg ER Tab (oxyCONTIN) PO SCH ×2 (10:09→21:51)
[2016-05-25] MEDS: Lidocaine 5% Patch TD SCH (10:11)
[2016-05-25] MEDS: Docusate-Senna 50 mg-8.6 mg Tab PO SCH ×2 (10:12→18:49)
[2016-05-25] MEDS: Pantoprazole 40 mg EC Tab PO SCH (10:15)
[2016-05-25] MEDS: Diphenhydramine 1% Cream (1 oz) TOP SCH (10:21)
[2016-05-25] MEDS: (Lantus) Insulin Glargine, Recombinant SC SCH (12:17)
--- NOTE | 2016-05-25 12:52 | VASCLAB ---
PROCEDURE: Upper Extremity Venous Duplex Exam HISTORY: pain and swelling, r/o DVT PRIORS: None. TECHNIQUE: Bilateral upper extremity, internal jugular, subclavian, axillary, brachial, ulnar, radial, basilic and upper cephalic veins were evaluated. Flow was assessed with color Doppler, compressibility, assessment of phasic flow and augmentation response. Report prepared by Mitchell Mccarthy, BENITA, RVT FINDINGS: RIGHT: 1. Internal Jugular: 1.1. Compressibility - Fully compressible: Thrombus - None : Flow - Phasic: Augmentation -Normal: Reflux - None. 2. Subclavian: 2.1. Compressibility - Fully compressible: Thrombus - None : Flow - Phasic: Augmentation -Normal: Reflux - None. 3. Axillary: 3.1. Compressibility - Fully compressible: Thrombus - None : Flow - Phasic: Augmentation -Normal: Reflux - None. 4. Brachial: 4.1. Compressibility - Fully compressible: Thrombus - None: Flow - Phasic: Augmentation -Normal: Reflux - None. 5. Ulnar: 5.1. Compressibility - Fully compressible: Thrombus - None: Flow - Phasic: Augmentation -Normal: Reflux - None. 6. Radial: 6.1. Compressibility - Fully compressible: Thrombus - None: Flow - Phasic: Augmentation - Normal: Reflux - None. 7. Cephalic: 7.1. Compressibility - Fully compressible: Thrombus - None: Flow - Phasic: Augmentation -Normal: Reflux - None. 8. Basilic: 8.1. Compressibility - Partial: Thrombus - Acute: Flow - Absent : Augmentation -None: Reflux - None. LEFT: 1. Internal Jugular: 1.1. Compressibility - Fully compressible: Thrombus - None : Flow - Phasic: Augmentation -Normal: Reflux - None. 2. Subclavian: 2.1. Compressibility - Fully compressible: Thrombus - None : Flow - Phasic: Augmentation -Normal: Reflux - None. 3. Axillary: 3.1. Compressibility - Fully compressible: Thrombus - None : Flow - Phasic: Augmentation -Normal: Reflux - None. 4. Brachial: 4.1. Compressibility - Fully compressible: Thrombus - None: Flow - Phasic: Augmentation -Normal: Reflux - None. 5. Ulnar: 5.1. Compressibility - Fully compressible: Thrombus - None: Flow - Phasic: Augmentation -Normal: Reflux - None. 6. Radial: 6.1. Compressibility - Fully compressible: Thrombus - None: Flow - Phasic: Augmentation - Normal: Reflux - None. 7. Cephalic: 7.1. Compressibility - Fully compressible: Thrombus - None: Flow - Phasic: Augmentation -Normal: Reflux - None. 8. Basilic: 8.1. Compressibility - Fully compressible: Thrombus - None: Flow - Phasic: Augmentation -Normal: Reflux - None. OTHER FINDINGS: MIGUELANGEL Villegas notified about the findings. IMPRESSION: Right: Acute thrombosis of the right basilic vein with severe reduction of the venous return. Left: No evidence of vein thrombosis of the left upper extremity with excellent venous flow. Normal valve function noted of the left side.
--- NOTE | 2016-05-25 14:44 | CP.PCM.PN ---
Subjective - Date & Time of Evaluation Date of Evaluation: 05/25/16 Time of Evaluation: 14:42 - Subjective Subjective: PGY-1 note for medicine service Pt seen and examined at bedside. Pt reports persistent, chronic pain. She says she is able to get up and walk around but that she feels as if the room is spinning. She also reports some continued left sided facial swelling. She reports that she has been using the warm compresses but I have not observed her using it yet. Denies any fevers, chills, chest pain, sob, nausea or vomiting. Objective - Vital Signs/Intake and Output Vital Signs (last 24 hours): Temp Pulse Resp BP Pulse Ox 98.1 F 90 20 127/68 98 05/25/16 07:23 05/25/16 07:23 05/25/16 07:23 05/25/16 07:23 05/25/16 07:23 Intake and Output: 05/25/16 05/25/16 06:59 18:59 Intake Total 540 Output Total 800 Balance -260 - Medications Medications: Current Medications Al Hydrox/Mg Hydrox/Simethicone (Maalox 30 Ml) 30 ml PO HS PRN PRN Reason: Indigestion / Heartburn Last Admin: 05/20/16 20:55 Dose: 30 ml Diphenhydramine HCl (Benadryl) 50 mg IVP HS PRN PRN Reason: Itching / Pruritus Last Admin: 05/25/16 00:10 Dose: 50 mg Diphenhydramine HCl (Benadryl) 25 mg PO Q4 PRN PRN Reason: Itching / Pruritus Last Admin: 05/25/16 10:12 Dose: 25 mg Gabapentin (Neurontin) 200 mg PO BID [facility] Last Admin: 05/25/16 10:12 Dose: 200 mg Hydromorphone HCl (Dilaudid) 2 mg PO Q4H PRN PRN Reason: Pain, severe (8-10) Last Admin: 05/25/16 08:07 Dose: 2 mg Insulin Aspart (Novolog) 16 unit SC ACTID [facility] Last Admin: 05/25/16 12:14 Dose: 16 unit Insulin Glargine (Lantus) 40 unit SC Q24H [facility] Last Admin: 05/25/16 12:17 Dose: 40 units Insulin Human Regular (Novolin R) 0 unit SC ACHS [facility] PRN Reason: Protocol Last Admin: 05/25/16 12:14 Dose: 4 unit Lidocaine (Lidoderm) 2 ea TD DAILY [facility] Last Admin: 05/25/16 10:11 Dose: 2 ea Ondansetron HCl (Zofran Inj) 4 mg IVP Q4H PRN PRN Reason: Nausea/Vomiting Last Admin: 05/17/16 05:07 Dose: 4 mg Oxycodone HCl (Oxycontin Extended Release Tab) 40 mg PO Q12H [facility] Last Admin: 05/25/16 10:09 Dose: 40 mg Pantoprazole Sodium (Protonix Ec Tab) 40 mg PO DAILY [facility] Last Admin: 05/25/16 10:15 Dose: 40 mg Senna/Docusate Sodium (Senokot S 50 Mg-8.6 Mg) 2 tab PO BID [facility] Last Admin: 05/25/16 10:12 Dose: 2 tab Sodium Chloride ([place] Baby Saline 30 Ml) 1 ml JONAS Q4H [facility] Last Admin: 05/25/16 07:14 Dose: Not Given Zinc Acetate/Diphenhydramine (Benadryl 1% Zinc Acetate -0.1%) 0 cre TOP DAILY [facility] Last Admin: 05/25/16 10:21 Dose: 1 applic - Labs Labs: 05/24/16 08:30 05/24/16 08:30 - Constitutional Appears: Chronically Ill - Head Exam Head Exam: ATRAUMATIC, NORMOCEPHALIC - Eye Exam Eye Exam: Normal appearance Pupil Exam: PERRL - ENT Exam ENT Exam: Mucous Membranes Moist - Respiratory Exam Respiratory Exam: Clear to Ausculation Bilateral, NORMAL BREATHING PATTERN - Cardiovascular Exam Cardiovascular Exam: +S1, +S2 - GI/Abdominal Exam GI & Abdominal Exam: Soft, Tenderness, Normal Bowel Sounds - Neurological Exam Neurological Exam: Alert, Awake - Skin Skin Exam: Dry, Warm Assessment and Plan - Assessment and Plan (Free Text) Assessment: Left sided facial swelling - No leukocytosis or fevers documented - Will continue to apply warm compresses - Continue to monitor Body aches - Secondary to tumor burden/chemo - Dilaudid 2mg PO Q4H PRN - Benadryl 25mg PO Q4H PRN - Benadryl 50mg PO QHS PRN - Flu neg - f/u palliative care consult for pain management - will change long acting Oxycodone 40mg Q12 per palliative - Per anesthesia - recommends current management as pt is not fully utilizing her PRN meds with her scheduled long acting pain meds. If pain persists, another option outpatient would be a plexus block. Abdominal Pain - Secondary to tumor burden/chemo vs opioid induced constipation vs bile congestion - History of colostomy, then reversal - Zofran 4mg IVP Q6 PRN - Dilaudid 4mg PO Q4H PRN - Benadryl 25mg IV Q4H PRN - increasesd Oxycodone ER to 40mg Q12 - f/u palliative care consult - Anesthesia consult (Casey) for pain management - recommends current management as pt is not fully utilizing her PRN meds with her scheduled long acting pain meds. If pain persists, another option outpatient would be a plexus block. - Abdominal US 05/17 - Unremarkable except for CBD dilatation of 1.1cm s/p cholecystectomy - GI consulted - recommends MRCP and abdominal xray. Continue supportive care and will continue to follow pt - Relistor not on formulary, started Golytely with no success yet. - MRCP 05/19 - no choledocholithiasis in setting of dilated CBD s/p cholecystectomy - Abdominal xray 05/18 - severe constipation, non-obstructive gas pattern - Will order fleet mineral oil enema Fevers/Chills - resolved - Blood cutlures x2 [id number] 05/20 - Recent urine culture negative - UA negative Dysuria - Urine Cx 05/17 - negative - Pt complaining of difficult urination, straining - On prior CT, tumor burden found near ureter - UA: 3+ glucose, 1+ protein - Urine culture multiple species, probable contamination. Will repeat today () - f/u - Tamsulosin 0.4mg PO Daily; with this the dysuria is improved Type 2, Diabetes Mellitus - Accuchecks - 05/24 Increased Lantus to 40 units in AM, Increased Novalog 16 units ACTID - Hold Metformin 1000mg PO Daily due to renal function - A1C: 7.9 (05/03/16) - c/w current management Diffuse B-Cell lymphoma - Management per Hem/Onc - Hem/Onc: Dr. Machuac, help appreciated - Per Heme/Onc, pain is not due to tumor burden as her pain was before her cancer and she is currently in remission. - s/p 6 cycle of RCHOP - last day of prednisone 100mg PO given 05/14 - outpatient PET CT scan in 2 weeks Palliative Care consult, help appreciated - f/u reccs Dietary Referral, help appreciated - started on heart healthy diet Leukopenia - WBC stable. Will continue to follow - per Heme/Onc if ANC is <500 can give Filigastrim - f/u labs Hx of HTN - Normotensive - Denies currently taking home BP meds, though listed on recent admission Elevated Bun/Cr - Believed secondary to chemo - patient has had elevated creatinine into the mid 2's in the patient; this is more towards her baseline since chemo Constipation - Miralax Q12H - Senna-Colace Pruritus - Benadryl 25mg PRN Prophylaxis - Heparin 5000units SC Q8H - Protonix 40mg IV Daily - SCDs Dispo - On discharge, pt needs pain medication that is expensive. Will attempt to get pain medication cheaper through [employer] program
[2016-05-26] MEDS: Sodium Chloride Nasal 0.65% Soln (30ml) NAS SCH ×6 (03:00→22:25)
[2016-05-26] MEDS: Docusate-Senna 50 mg-8.6 mg Tab PO SCH ×2 (09:49→17:45)
[2016-05-26] MEDS: oxyCODONE 40 mg ER Tab (oxyCONTIN) PO SCH ×2 (09:49→21:33)
[2016-05-26] MEDS: Pantoprazole 40 mg EC Tab PO SCH (09:49)
[2016-05-26] MEDS: Lidocaine 5% Patch TD SCH (09:51)
[2016-05-26] MEDS: (Novolin R) Insulin Human Regular 100 units/ml vial SC SCH ×5 (09:51→21:29)
[2016-05-26] MEDS: (Novolog) Insulin Aspart, Recombinant 100 u/ml 10 ml vial SC SCH ×3 (09:53→21:41)
[2016-05-26] MEDS ORDERED: oxyCODONE 10 mg ER Tab (oxyCONTIN) PO ONE (10:45)
[2016-05-26] MEDS ORDERED: oxyCODONE 40 mg ER Tab (oxyCONTIN) PO SCH (10:46)
[2016-05-26] MEDS: Diphenhydramine 1% Cream (1 oz) TOP SCH (11:13)
[2016-05-26] MEDS: (Lantus) Insulin Glargine, Recombinant SC SCH (12:40)
[2016-05-26] MEDS ORDERED: oxyCODONE 20 mg ER Tab (oxyCONTIN) PO SCH (16:00)
--- NOTE | 2016-05-26 16:21 | CP.PCM.PN ---
Subjective - Date & Time of Evaluation Date of Evaluation: 05/26/16 Time of Evaluation: 16:15 - Subjective Subjective: PGY-1 note for medicine service Pt seen and examined at bedside. Pt was frustrated about pain management. Discussed goals of care with the pt and she understood that we need to get her on PO pain medications in order to be discharged. She denied any fevers, chills chest pain, sob, nausea or vomiting. Objective - Vital Signs/Intake and Output Vital Signs (last 24 hours): Temp Pulse Resp BP Pulse Ox 98.4 F 79 20 105/79 96 05/26/16 08:08 05/26/16 08:08 05/26/16 08:08 05/26/16 08:08 05/26/16 08:08 Intake and Output: 05/26/16 05/26/16 06:59 18:59 Intake Total 400 Balance 400 - Medications Medications: Current Medications Al Hydrox/Mg Hydrox/Simethicone (Maalox 30 Ml) 30 ml PO HS PRN PRN Reason: Indigestion / Heartburn Last Admin: 05/20/16 20:55 Dose: 30 ml Diphenhydramine HCl (Benadryl) 50 mg IVP HS PRN PRN Reason: Itching / Pruritus Last Admin: 05/25/16 21:51 Dose: 50 mg Diphenhydramine HCl (Benadryl) 25 mg PO Q4 PRN PRN Reason: Itching / Pruritus Last Admin: 05/26/16 12:45 Dose: 25 mg Gabapentin (Neurontin) 300 mg PO BID [facility] Hydromorphone HCl (Dilaudid) 2 mg PO Q4H PRN PRN Reason: Pain, moderate (4-7) Hydromorphone HCl (Dilaudid) 4 mg PO Q4H PRN PRN Reason: Pain, severe (8-10) Insulin Aspart (Novolog) 16 unit SC ACTID [facility] Last Admin: 05/26/16 12:40 Dose: 16 unit Insulin Glargine (Lantus) 40 unit SC Q24H [facility] Last Admin: 05/26/16 12:40 Dose: 40 units Insulin Human Regular (Novolin R) 0 unit SC ACHS [facility] PRN Reason: Protocol Last Admin: 05/26/16 12:39 Dose: 2 unit Lactulose (Enulose) 20 gm PO HS [facility] Lidocaine (Lidoderm) 2 ea TD DAILY [facility] Last Admin: 05/26/16 09:51 Dose: 2 ea Ondansetron HCl (Zofran Inj) 4 mg IVP Q4H PRN PRN Reason: Nausea/Vomiting Last Admin: 05/17/16 05:07 Dose: 4 mg Oxycodone HCl (Oxycontin Extended Release Tab) 40 mg PO Q12 [facility] Oxycodone HCl (Oxycontin Extended Release Tab) 10 mg PO Q12 [facility] Pantoprazole Sodium (Protonix Ec Tab) 40 mg PO DAILY [facility] Last Admin: 05/26/16 09:49 Dose: 40 mg Senna/Docusate Sodium (Senokot S 50 Mg-8.6 Mg) 2 tab PO BID [facility] Last Admin: 05/26/16 09:49 Dose: 2 tab Sodium Chloride ([place] Baby Saline 30 Ml) 1 ml JONAS Q4H [facility] Last Admin: 05/26/16 11:13 Dose: Not Given Zinc Acetate/Diphenhydramine (Benadryl 1% Zinc Acetate -0.1%) 0 cre TOP DAILY [facility] Last Admin: 05/26/16 11:13 Dose: 1 applic - Labs Labs: 05/24/16 08:30 05/24/16 08:30 - Constitutional Appears: Non-toxic, No Acute Distress - Head Exam Head Exam: ATRAUMATIC, NORMOCEPHALIC - Respiratory Exam Respiratory Exam: Clear to Ausculation Bilateral, NORMAL BREATHING PATTERN - Cardiovascular Exam Cardiovascular Exam: +S1, +S2 - GI/Abdominal Exam GI & Abdominal Exam: Soft, Tenderness, Normal Bowel Sounds - Neurological Exam Neurological Exam: Alert, Awake - Skin Skin Exam: Dry, Warm Assessment and Plan - Assessment and Plan (Free Text) Assessment: Left sided facial swelling - Swelling decreased today, continue warm compresses - No leukocytosis or fevers documented - Will continue to apply warm compresses - Continue to monitor Body aches - Secondary to tumor burden/chemo - Changed Dilaudid 4mg PO Q4H PRN severe pain and 2 mg PRN moderate pain - will change long acting Oxycodone 50mg Q12 - Benadryl 25mg PO Q4H PRN - Benadryl 50mg PO QHS PRN - Flu neg - f/u palliative care consult for pain management - Per anesthesia - recommends current management as pt is not fully utilizing her PRN meds with her scheduled long acting pain meds. If pain persists, another option outpatient would be a plexus block. Abdominal Pain - Secondary to tumor burden/chemo vs opioid induced constipation vs bile congestion - History of colostomy, then reversal - Zofran 4mg IVP Q6 PRN - Changed Dilaudid 4mg PO Q4H PRN severe pain and 2 mg PRN moderate pain - will change long acting Oxycodone 50mg Q12 - Benadryl 25mg IV Q4H PRN - f/u palliative care consult - Anesthesia consult ([facility]y) for pain management - recommends current management as pt is not fully utilizing her PRN meds with her scheduled long acting pain meds. If pain persists, another option outpatient would be a plexus block. - Abdominal US 05/17 - Unremarkable except for CBD dilatation of 1.1cm s/p cholecystectomy - GI consulted - recommends MRCP and abdominal xray. Continue supportive care and will continue to follow pt - Relistor not on formulary, started Golytely with no success yet. - MRCP 05/19 - no choledocholithiasis in setting of dilated CBD s/p cholecystectomy - Abdominal xray 05/18 - severe constipation, non-obstructive gas pattern - Will order fleet mineral oil enema Fevers/Chills - resolved - Blood cutlures x2 [id number] 05/20 - Recent urine culture negative - UA negative Dysuria - Urine Cx 05/17 - negative - Pt complaining of difficult urination, straining - On prior CT, tumor burden found near ureter - UA: 3+ glucose, 1+ protein - Urine culture multiple species, probable contamination. Will repeat today () - f/u - Tamsulosin 0.4mg PO Daily; with this the dysuria is improved Type 2, Diabetes Mellitus - Accuchecks - 05/24 Increased Lantus to 40 units in AM, Increased Novalog 16 units ACTID - Hold Metformin 1000mg PO Daily due to renal function - A1C: 7.9 (05/03/16) - c/w current management Diffuse B-Cell lymphoma - Management per Hem/Onc - Hem/Onc: Dr. Machuca, help appreciated - Per Heme/Onc, pain is not due to tumor burden as her pain was before her cancer and she is currently in remission. - s/p 6 cycle of RCHOP - last day of prednisone 100mg PO given 05/14 - outpatient PET CT scan in 2 weeks Palliative Care consult, help appreciated - f/u reccs Dietary Referral, help appreciated - started on heart healthy diet Leukopenia - WBC stable. Will continue to follow - per Heme/Onc if ANC is <500 can give Filigastrim - f/u labs Hx of HTN - Normotensive - Denies currently taking home BP meds, though listed on recent admission Elevated Bun/Cr - Believed secondary to chemo - patient has had elevated creatinine into the mid 2's in the patient; this is more towards her baseline since chemo Constipation - Miralax Q12H - Senna-Colace Pruritus - Benadryl 25mg PRN Prophylaxis - Heparin 5000units SC Q8H - Protonix 40mg IV Daily - SCDs Dispo - Per PT, recommend continued PT at home
[2016-05-26] MEDS: oxyCODONE 10 mg ER Tab (oxyCONTIN) PO SCH (21:34)
[2016-05-26] MEDS: DiphenhydrAMINE 50 mg/ml Inj IVP PRN (21:35)
[2016-05-26] MEDS ORDERED: oxyCODONE 10 mg ER Tab (oxyCONTIN) PO SCH (22:46)
[2016-05-27] MEDS: Sodium Chloride Nasal 0.65% Soln (30ml) NAS SCH ×6 (03:00→22:09)
[2016-05-27] MEDS: (Novolin R) Insulin Human Regular 100 units/ml vial SC SCH ×4 (07:55→22:06)
[2016-05-27] MEDS: (Novolog) Insulin Aspart, Recombinant 100 u/ml 10 ml vial SC SCH ×3 (07:56→18:03)
[2016-05-27] MEDS: oxyCODONE 40 mg ER Tab (oxyCONTIN) PO SCH ×2 (10:37→21:44)
[2016-05-27] MEDS: oxyCODONE 10 mg ER Tab (oxyCONTIN) PO SCH ×2 (10:38→21:40)
[2016-05-27] MEDS: Pantoprazole 40 mg EC Tab PO SCH (10:38)
[2016-05-27] MEDS: Docusate-Senna 50 mg-8.6 mg Tab PO SCH ×2 (10:39→18:25)
[2016-05-27] MEDS: Lidocaine 5% Patch TD SCH (10:42)
[2016-05-27] MEDS: Diphenhydramine 1% Cream (1 oz) TOP SCH (10:43)
[2016-05-27] MEDS ORDERED: Mineral Oil Enema 135 ml RC ONE (11:45)
[2016-05-27] MEDS: (Lantus) Insulin Glargine, Recombinant SC SCH (11:57)
[2016-05-27 12:01] LABS: BASO % 0.8 % (0.0-2.0); EOS % 0.4 % (0.0-4.0); HEMATOCRIT 29.2 % (34.0-47.0); LYMPH # 0.8 K/uL (1.0-4.3); LYMPH % 14.3 % (20.0-40.0); MEAN CELL VOLUME 87.2 fL (81.0-99.0); MEAN CORPUSCULAR HEMOGLOBIN 28.6 pg (27.0-31.0); MEAN CORPUSCULAR HGB CONC 32.8 g/dL (33.0-37.0); MEAN PLATELET VOLUME 8.1 fL (7.2-11.7); MONO # 0.6 K/uL (0.0-0.8); MONO % 11.1 % (0.0-10.0); NRBC % 0.1 % (0.0-2.0); RED CELL DISTRIBUTION WIDTH 17.5 % (11.5-14.5); WHITE BLOOD COUNT 5.5 K/uL (4.8-10.8)
[2016-05-27 12:13] LABS: BILIRUBIN,TOTAL 0.3 mg/dL (0.2-1.3)
[2016-05-27 12:14] LABS: ALB/GLOB RATIO 1.1 (1.0-2.1); TOTAL PROTEIN 6.6 g/dL (6.3-8.3)
[2016-05-27 12:15] LABS: CALCIUM 8.9 mg/dl (8.6-10.4)
[2016-05-27] MEDS: Sodium Chloride 0.9% 1,000 ML IV SCH ×2 (12:21→21:40)
--- NOTE | 2016-05-27 14:13 | CP.PCM.PN ---
<Johnny Scott - Last Filed: 05/27/16 14:07> Subjective - Date & Time of Evaluation Date of Evaluation: 05/27/16 Time of Evaluation: 14:07 - Subjective Subjective: PGY-1 note for medicine service Pt seen and examined at bedside. She states that she continues to have pain and that the PO medications dont work well with her. Per PT pt is also orthostatic and is likely contributing to her unsteadiness on her feet. No other new complaints. Denies fevers, chills, chest pain, sob, nausea or vomiting. Objective - Vital Signs/Intake and Output Vital Signs (last 24 hours): Temp Pulse Resp BP Pulse Ox 98.6 F 82 20 137/66 97 05/27/16 07:29 05/27/16 07:29 05/27/16 07:29 05/27/16 07:29 05/27/16 07:29 Intake and Output: 05/27/16 05/27/16 06:59 18:59 Intake Total 300 200 Output Total 700 Balance -400 200 - Medications Medications: Current Medications Al Hydrox/Mg Hydrox/Simethicone (Maalox 30 Ml) 30 ml PO HS PRN PRN Reason: Indigestion / Heartburn Last Admin: 05/20/16 20:55 Dose: 30 ml Diphenhydramine HCl (Benadryl) 50 mg IVP HS PRN PRN Reason: Itching / Pruritus Last Admin: 05/26/16 21:35 Dose: 50 mg Diphenhydramine HCl (Benadryl) 25 mg PO Q4 PRN PRN Reason: Itching / Pruritus Last Admin: 05/27/16 13:17 Dose: 25 mg Docusate Sodium (Colace) 100 mg PO BID [facility] Last Admin: 05/27/16 12:20 Dose: 100 mg Gabapentin (Neurontin) 300 mg PO BID [facility] Last Admin: 05/27/16 10:37 Dose: 300 mg Hydromorphone HCl (Dilaudid) 2 mg PO Q4H PRN PRN Reason: Pain, moderate (4-7) Last Admin: 05/27/16 13:17 Dose: 2 mg Hydromorphone HCl (Dilaudid) 4 mg PO Q4H PRN PRN Reason: Pain, severe (8-10) Sodium Chloride (Sodium Chloride 0.9%) 1,000 mls @ 100 mls/hr IV .Q10H [facility] Last Admin: 05/27/16 12:21 Dose: 100 mls/hr Insulin Aspart (Novolog) 16 unit SC ACTID [facility] Last Admin: 05/27/16 11:54 Dose: 16 unit Insulin Glargine (Lantus) 40 unit SC Q24H [facility] Last Admin: 05/27/16 11:57 Dose: 40 units Insulin Human Regular (Novolin R) 0 unit SC ACHS [facility] PRN Reason: Protocol Last Admin: 05/27/16 11:54 Dose: 8 unit Lactulose (Enulose) 20 gm PO HS [facility] Last Admin: 05/26/16 21:42 Dose: 20 gm Lidocaine (Lidoderm) 2 ea TD DAILY [facility] Last Admin: 05/27/16 10:42 Dose: 2 ea Ondansetron HCl (Zofran Inj) 4 mg IVP Q4H PRN PRN Reason: Nausea/Vomiting Last Admin: 05/27/16 08:07 Dose: 4 mg Oxycodone HCl (Oxycontin Extended Release Tab) 40 mg PO Q12 [facility] Last Admin: 05/27/16 10:37 Dose: 40 mg Oxycodone HCl (Oxycontin Extended Release Tab) 10 mg PO Q12 [facility] Last Admin: 05/27/16 10:38 Dose: 10 mg Pantoprazole Sodium (Protonix Ec Tab) 40 mg PO DAILY [facility] Last Admin: 05/27/16 10:38 Dose: 40 mg Senna/Docusate Sodium (Senokot S 50 Mg-8.6 Mg) 2 tab PO BID [facility] Last Admin: 05/27/16 10:39 Dose: 2 tab Sodium Chloride ([place] Baby Saline 30 Ml) 1 ml JONAS Q4H [facility] Last Admin: 05/27/16 10:43 Dose: 1 spr Zinc Acetate/Diphenhydramine (Benadryl 1% Zinc Acetate -0.1%) 0 cre TOP DAILY [facility] Last Admin: 05/27/16 10:43 Dose: 1 applic - Labs Labs: 05/27/16 11:00 05/27/16 11:00 - Constitutional Appears: Non-toxic, No Acute Distress - Head Exam Head Exam: ATRAUMATIC, NORMOCEPHALIC - ENT Exam ENT Exam: Mucous Membranes Moist - Respiratory Exam Respiratory Exam: Clear to Ausculation Bilateral, NORMAL BREATHING PATTERN - Cardiovascular Exam Cardiovascular Exam: +S1, +S2 - GI/Abdominal Exam GI & Abdominal Exam: Soft, Tenderness, Normal Bowel Sounds - Neurological Exam Neurological Exam: Alert, Awake - Skin Skin Exam: Dry, Warm Assessment and Plan - Assessment and Plan (Free Text) Assessment: Orthostatic hypostention - Likely secondary to decreased PO intake vs high dose narcotics - Will start fluids - TEDS stockings - Encourage positional changes - Continue to monitor Left sided facial swelling - Swelling decreased today, continue warm compresses - No leukocytosis or fevers documented - Will continue to apply warm compresses - Continue to monitor Body aches - Secondary to tumor burden/chemo - Changed Dilaudid 4mg PO Q4H PRN severe pain and 2 mg PRN moderate pain - will change long acting Oxycodone 50mg Q12 - Benadryl 25mg PO Q4H PRN - Benadryl 50mg PO QHS PRN - Flu neg - f/u palliative care consult for pain management - Per anesthesia - recommends current management as pt is not fully utilizing her PRN meds with her scheduled long acting pain meds. If pain persists, another option outpatient would be a plexus block. Abdominal Pain - Secondary to tumor burden/chemo vs opioid induced constipation vs bile congestion - History of colostomy, then reversal - Zofran 4mg IVP Q6 PRN - Changed Dilaudid 4mg PO Q4H PRN severe pain and 2 mg PRN moderate pain - will change long acting Oxycodone 50mg Q12 - Benadryl 25mg IV Q4H PRN - f/u palliative care consult - Anesthesia consult ([facility]) for pain management - recommends current management as pt is not fully utilizing her PRN meds with her scheduled long acting pain meds. If pain persists, another option outpatient would be a plexus block. - Abdominal US 05/17 - Unremarkable except for CBD dilatation of 1.1cm s/p cholecystectomy - GI consulted - recommends MRCP and abdominal xray. Continue supportive care and will continue to follow pt - Relistor not on formulary, started Golytely with no success yet. - MRCP 05/19 - no choledocholithiasis in setting of dilated CBD s/p cholecystectomy - Abdominal xray 05/18 - severe constipation, non-obstructive gas pattern - Will order fleet mineral oil enema Fevers/Chills - resolved - Blood cutlures x2 [id number] 05/20 - Recent urine culture negative - UA negative Dysuria - Urine Cx 05/17 - negative - Pt complaining of difficult urination, straining - On prior CT, tumor burden found near ureter - UA: 3+ glucose, 1+ protein - Urine culture multiple species, probable contamination. Will repeat today () - f/u - Tamsulosin 0.4mg PO Daily; with this the dysuria is improved Type 2, Diabetes Mellitus - Accuchecks - 05/24 Increased Lantus to 40 units in AM, Increased Novalog 16 units ACTID - Hold Metformin 1000mg PO Daily due to renal function - A1C: 7.9 (05/03/16) - c/w current management Diffuse B-Cell lymphoma - Management per Hem/Onc - Hem/Onc: Dr. Machuca, help appreciated - Per Heme/Onc, pain is not due to tumor burden as her pain was before her cancer and she is currently in remission. - s/p 6 cycle of RCHOP - last day of prednisone 100mg PO given 05/14 - outpatient PET CT scan in 2 weeks Palliative Care consult, help appreciated - f/u reccs Dietary Referral, help appreciated - started on heart healthy diet Leukopenia - WBC stable. Will continue to follow - per Heme/Onc if ANC is <500 can give Filigastrim - f/u labs Hx of HTN - Normotensive - Denies currently taking home BP meds, though listed on recent admission Elevated Bun/Cr - Believed secondary to chemo - patient has had elevated creatinine into the mid 2's in the patient; this is more towards her baseline since chemo Constipation - Ordered mineral fleet enema - Added colace - Senna-Colace Pruritus - Benadryl 25mg PRN Prophylaxis - Heparin 5000units SC Q8H - Protonix 40mg IV Daily - SCDs Dispo - Per PT, recommend continued PT at home <Tian Graham - Last Filed: 05/27/16 18:05> Objective - Vital Signs/Intake and Output Vital Signs (last 24 hours): Temp Pulse Resp BP Pulse Ox 98.4 F 98 H 20 101/67 96 05/27/16 15:46 05/27/16 15:46 05/27/16 15:46 05/27/16 15:46 05/27/16 15:46 Intake and Output: 05/27/16 05/27/16 06:59 18:59 Intake Total 300 900 Output Total 700 Balance -400 900 - Medications Medications: Current Medications Al Hydrox/Mg Hydrox/Simethicone (Maalox 30 Ml) 30 ml PO HS PRN PRN Reason: Indigestion / Heartburn Last Admin: 05/20/16 20:55 Dose: 30 ml Diphenhydramine HCl (Benadryl) 50 mg IVP HS PRN PRN Reason: Itching / Pruritus Last Admin: 05/26/16 21:35 Dose: 50 mg Diphenhydramine HCl (Benadryl) 25 mg PO Q4 PRN PRN Reason: Itching / Pruritus Last Admin: 05/27/16 13:17 Dose: 25 mg Docusate Sodium (Colace) 100 mg PO BID [facility] Last Admin: 05/27/16 17:59 Dose: 100 mg Gabapentin (Neurontin) 300 mg PO BID [facility] Last Admin: 05/27/16 17:59 Dose: 300 mg Hydromorphone HCl (Dilaudid) 2 mg PO Q4H PRN PRN Reason: Pain, moderate (4-7) Last Admin: 05/27/16 13:17 Dose: 2 mg Hydromorphone HCl (Dilaudid) 4 mg PO Q4H PRN PRN Reason: Pain, severe (8-10) Sodium Chloride (Sodium Chloride 0.9%) 1,000 mls @ 100 mls/hr IV .Q10H [facility] Last Admin: 05/27/16 12:21 Dose: 100 mls/hr Insulin Aspart (Novolog) 16 unit SC ACTID [facility] Last Admin: 05/27/16 18:03 Dose: 16 unit Insulin Glargine (Lantus) 40 unit SC Q24H [facility] Last Admin: 05/27/16 11:57 Dose: 40 units Insulin Human Regular (Novolin R) 0 unit SC ACHS [facility] PRN Reason: Protocol Last Admin: 05/27/16 17:59 Dose: 4 unit Lactulose (Enulose) 20 gm PO HS [facility] Last Admin: 05/26/16 21:42 Dose: 20 gm Lidocaine (Lidoderm) 2 ea TD DAILY [facility] Last Admin: 05/27/16 10:42 Dose: 2 ea Ondansetron HCl (Zofran Inj) 4 mg IVP Q4H PRN PRN Reason: Nausea/Vomiting Last Admin: 05/27/16 08:07 Dose: 4 mg Oxycodone HCl (Oxycontin Extended Release Tab) 40 mg PO Q12 [facility] Last Admin: 05/27/16 10:37 Dose: 40 mg Oxycodone HCl (Oxycontin Extended Release Tab) 10 mg PO Q12 [facility] Last Admin: 05/27/16 10:38 Dose: 10 mg Pantoprazole Sodium (Protonix Ec Tab) 40 mg PO DAILY [facility] Last Admin: 05/27/16 10:38 Dose: 40 mg Senna/Docusate Sodium (Senokot S 50 Mg-8.6 Mg) 2 tab PO BID [facility] Last Admin: 05/27/16 10:39 Dose: 2 tab Sodium Chloride ([place] Baby Saline 30 Ml) 1 ml JONAS Q4H [facility] Last Admin: 05/27/16 14:43 Dose: Not Given Zinc Acetate/Diphenhydramine (Benadryl 1% Zinc Acetate -0.1%) 0 cre TOP DAILY [facility] Last Admin: 05/27/16 10:43 Dose: 1 applic - Labs Labs: 05/27/16 11:00 05/27/16 11:00 Attending/Attestation - Attestation I have personally seen and examined this patient.: Yes I have fully participated in the care of the patient.: Yes I have reviewed all pertinent clinical information, including history, physical exam and plan: Yes Notes (Text): 05/27/16 18:04 patient was seen and examined at bedside with the resident Patient complains of for right flank pain We will continue pain medication Patient also found to have orthostatic hypotension We will start the patient on BRICE stockings and on IV fluids Continue current management Discussed the plan of care with the resident.
--- NOTE | 2016-05-27 21:32 | CP.PCM.PN ---
Subjective - Date & Time of Evaluation Date of Evaluation: 05/27/16 Time of Evaluation: 19:00 - Subjective Subjective: Has not moved bowels for 4 days Objective - Vital Signs/Intake and Output Vital Signs (last 24 hours): Temp Pulse Resp BP Pulse Ox 98.4 F 98 H 20 101/67 96 05/27/16 15:46 05/27/16 15:46 05/27/16 15:46 05/27/16 15:46 05/27/16 15:46 Intake and Output: 05/27/16 05/28/16 18:59 06:59 Intake Total 900 Balance 900 - Medications Medications: Current Medications Al Hydrox/Mg Hydrox/Simethicone (Maalox 30 Ml) 30 ml PO HS PRN PRN Reason: Indigestion / Heartburn Last Admin: 05/20/16 20:55 Dose: 30 ml Diphenhydramine HCl (Benadryl) 50 mg IVP HS PRN PRN Reason: Itching / Pruritus Last Admin: 05/26/16 21:35 Dose: 50 mg Diphenhydramine HCl (Benadryl) 25 mg PO Q4 PRN PRN Reason: Itching / Pruritus Last Admin: 05/27/16 13:17 Dose: 25 mg Docusate Sodium (Colace) 100 mg PO BID [facility] [place] Last Admin: 05/27/16 17:59 Dose: 100 mg Gabapentin (Neurontin) 300 mg PO BID [facility] [place] Last Admin: 05/27/16 17:59 Dose: 300 mg Hydromorphone HCl (Dilaudid) 2 mg PO Q4H PRN PRN Reason: Pain, moderate (4-7) Last Admin: 05/27/16 13:17 Dose: 2 mg Hydromorphone HCl (Dilaudid) 4 mg PO Q4H PRN PRN Reason: Pain, severe (8-10) Sodium Chloride (Sodium Chloride 0.9%) 1,000 mls @ 100 mls/hr IV .Q10H [facility] [place] Last Admin: 05/27/16 12:21 Dose: 100 mls/hr Insulin Aspart (Novolog) 16 unit SC ACTID [facility] [place] Last Admin: 05/27/16 18:03 Dose: 16 unit Insulin Glargine (Lantus) 40 unit SC Q24H [facility] [place] Last Admin: 05/27/16 11:57 Dose: 40 units Insulin Human Regular (Novolin R) 0 unit SC ACHS [facility] PRN Reason: Protocol Last Admin: 05/27/16 17:59 Dose: 4 unit Lactulose (Enulose) 20 gm PO HS [facility] [place] Last Admin: 05/26/16 21:42 Dose: 20 gm Lidocaine (Lidoderm) 2 ea TD DAILY [facility] [place] Last Admin: 05/27/16 10:42 Dose: 2 ea Ondansetron HCl (Zofran Inj) 4 mg IVP Q4H PRN PRN Reason: Nausea/Vomiting Last Admin: 05/27/16 08:07 Dose: 4 mg Oxycodone HCl (Oxycontin Extended Release Tab) 40 mg PO Q12 [facility] [place] Last Admin: 05/27/16 10:37 Dose: 40 mg Oxycodone HCl (Oxycontin Extended Release Tab) 10 mg PO Q12 [facility] [place] Last Admin: 05/27/16 10:38 Dose: 10 mg Pantoprazole Sodium (Protonix Ec Tab) 40 mg PO DAILY [facility] [place] Last Admin: 05/27/16 10:38 Dose: 40 mg Senna/Docusate Sodium (Senokot S 50 Mg-8.6 Mg) 2 tab PO BID [facility] [place] Last Admin: 05/27/16 18:25 Dose: 2 tab Sodium Chloride ([place] Baby Saline 30 Ml) 1 ml JONAS Q4H [facility] [place] Last Admin: 05/27/16 14:43 Dose: Not Given Zinc Acetate/Diphenhydramine (Benadryl 1% Zinc Acetate -0.1%) 0 cre TOP DAILY [facility] [place] Last Admin: 05/27/16 10:43 Dose: 1 applic - Labs Labs: 05/27/16 11:00 05/27/16 11:00 - Head Exam Head Exam: ATRAUMATIC - Eye Exam Eye Exam: Normal appearance - ENT Exam ENT Exam: Mucous Membranes Dry - Respiratory Exam Respiratory Exam: NORMAL BREATHING PATTERN - Cardiovascular Exam Cardiovascular Exam: +S1, +S2 - GI/Abdominal Exam GI & Abdominal Exam: Normal Bowel Sounds - Extremities Exam Extremities Exam: Normal Inspection Assessment and Plan (1) Intractable pain Assessment & Plan: unknown etiology pain control with bowel regimen outpatient nerve block Status: Acute (2) Neutropenia Status: Acute (3) Diffuse large B cell lymphoma Assessment & Plan: s/p chemotherapy outpatient PET CT scan Status: Acute
[2016-05-27] MEDS: DiphenhydrAMINE 50 mg/ml Inj IVP PRN (21:40)
[2016-05-28] MEDS: Sodium Chloride Nasal 0.65% Soln (30ml) NAS SCH ×6 (03:00→23:00)
[2016-05-28] MEDS: Sodium Chloride 0.9% 1,000 ML IV SCH ×2 (07:45→17:50)
[2016-05-28] MEDS: (Novolin R) Insulin Human Regular 100 units/ml vial SC SCH ×4 (09:03→22:00)
[2016-05-28] MEDS: (Novolog) Insulin Aspart, Recombinant 100 u/ml 10 ml vial SC SCH ×3 (09:04→16:30)
[2016-05-28 09:34] LABS: BASO % 1.2 % (0.0-2.0); EOS % 0.8 % (0.0-4.0); HEMATOCRIT 26.6 % (34.0-47.0); LYMPH # 0.8 K/uL (1.0-4.3); LYMPH % 27.6 % (20.0-40.0); MEAN CELL VOLUME 86.7 fL (81.0-99.0); MEAN CORPUSCULAR HEMOGLOBIN 28.4 pg (27.0-31.0); MEAN CORPUSCULAR HGB CONC 32.8 g/dL (33.0-37.0); MEAN PLATELET VOLUME 7.9 fL (7.2-11.7); MONO # 0.5 K/uL (0.0-0.8); MONO % 16.7 % (0.0-10.0); RED CELL DISTRIBUTION WIDTH 17.3 % (11.5-14.5)
[2016-05-28 09:49] LABS: BILIRUBIN,TOTAL 0.2 mg/dL (0.2-1.3); TOTAL PROTEIN 5.9 g/dL (6.3-8.3)
[2016-05-28 09:50] LABS: CALCIUM 8.2 mg/dl (8.6-10.4)
[2016-05-28] MEDS: oxyCODONE 40 mg ER Tab (oxyCONTIN) PO SCH ×2 (09:55→22:00)
[2016-05-28] MEDS: Lidocaine 5% Patch TD SCH (09:55)
[2016-05-28] MEDS: Pantoprazole 40 mg EC Tab PO SCH (09:55)
[2016-05-28] MEDS: oxyCODONE 10 mg ER Tab (oxyCONTIN) PO SCH ×2 (09:56→22:00)
[2016-05-28] MEDS: Docusate-Senna 50 mg-8.6 mg Tab PO SCH ×2 (10:03→18:05)
--- NOTE | 2016-05-28 10:04 | CP.PCM.PN ---
<Johnny Scott - Last Filed: 05/28/16 12:19> Subjective - Date & Time of Evaluation Date of Evaluation: 05/28/16 Time of Evaluation: 10:00 - Subjective Subjective: PGY-1 note for medicine service Pt seen and examined at bedside. Pt complaining of visual changes immediately after sitting up that resolves after a couple of seconds. She also has burning with urination now. Denies fevers, chills, chest pain, palpitations, nausea or vomiting. Still with continued abdominal/back pain. Objective - Vital Signs/Intake and Output Vital Signs (last 24 hours): Temp Pulse Resp BP Pulse Ox 98.2 F 88 20 120/74 96 05/28/16 07:42 05/28/16 07:42 05/28/16 07:42 05/28/16 07:42 05/28/16 07:42 Intake and Output: 05/28/16 05/28/16 06:59 18:59 Intake Total 1050 Balance 1050 - Medications Medications: Current Medications Al Hydrox/Mg Hydrox/Simethicone (Maalox 30 Ml) 30 ml PO HS PRN PRN Reason: Indigestion / Heartburn Last Admin: 05/20/16 20:55 Dose: 30 ml Diphenhydramine HCl (Benadryl) 50 mg IVP HS PRN PRN Reason: Itching / Pruritus Last Admin: 05/27/16 21:40 Dose: 50 mg Diphenhydramine HCl (Benadryl) 25 mg PO Q4 PRN PRN Reason: Itching / Pruritus Last Admin: 05/28/16 06:15 Dose: 25 mg Docusate Sodium (Colace) 100 mg PO BID [facility] Last Admin: 05/28/16 09:55 Dose: 100 mg Gabapentin (Neurontin) 300 mg PO BID [facility] Last Admin: 05/28/16 09:55 Dose: 300 mg Hydromorphone HCl (Dilaudid) 2 mg PO Q4H PRN PRN Reason: Pain, moderate (4-7) Last Admin: 05/28/16 06:16 Dose: 2 mg Hydromorphone HCl (Dilaudid) 4 mg PO Q4H PRN PRN Reason: Pain, severe (8-10) Sodium Chloride (Sodium Chloride 0.9%) 1,000 mls @ 100 mls/hr IV .Q10H [facility] Last Admin: 05/27/16 21:40 Dose: 100 mls/hr Insulin Aspart (Novolog) 16 unit SC ACTID [facility] Last Admin: 05/28/16 09:04 Dose: 16 unit Insulin Glargine (Lantus) 40 unit SC Q24H [facility] Last Admin: 05/27/16 11:57 Dose: 40 units Insulin Human Regular (Novolin R) 0 unit SC ACHS [facility] PRN Reason: Protocol Last Admin: 05/28/16 09:03 Dose: 6 unit Lactulose (Enulose) 20 gm PO HS [facility] Last Admin: 05/27/16 22:11 Dose: 20 gm Lidocaine (Lidoderm) 2 ea TD DAILY [facility] Last Admin: 05/28/16 09:55 Dose: 2 ea Ondansetron HCl (Zofran Inj) 4 mg IVP Q4H PRN PRN Reason: Nausea/Vomiting Last Admin: 05/27/16 08:07 Dose: 4 mg Oxycodone HCl (Oxycontin Extended Release Tab) 40 mg PO Q12 [facility] Last Admin: 05/28/16 09:55 Dose: 40 mg Oxycodone HCl (Oxycontin Extended Release Tab) 10 mg PO Q12 [facility] Last Admin: 05/28/16 09:56 Dose: 10 mg Pantoprazole Sodium (Protonix Ec Tab) 40 mg PO DAILY [facility] Last Admin: 05/28/16 09:55 Dose: 40 mg Senna/Docusate Sodium (Senokot S 50 Mg-8.6 Mg) 2 tab PO BID [facility] Last Admin: 05/27/16 18:25 Dose: 2 tab Sodium Chloride ([place] Baby Saline 30 Ml) 1 ml JONAS Q4H [facility] Last Admin: 05/28/16 07:32 Dose: Not Given Zinc Acetate/Diphenhydramine (Benadryl 1% Zinc Acetate -0.1%) 0 cre TOP DAILY [facility] Last Admin: 05/27/16 10:43 Dose: 1 applic - Labs Labs: 05/28/16 09:29 05/28/16 09:29 - Constitutional Appears: Non-toxic, No Acute Distress - Head Exam Head Exam: ATRAUMATIC, NORMOCEPHALIC - Eye Exam Eye Exam: Normal appearance Pupil Exam: PERRL - ENT Exam ENT Exam: Mucous Membranes Moist - Respiratory Exam Respiratory Exam: Clear to Ausculation Bilateral, NORMAL BREATHING PATTERN - Cardiovascular Exam Cardiovascular Exam: +S1, +S2 - GI/Abdominal Exam GI & Abdominal Exam: Soft, Tenderness, Normal Bowel Sounds - Neurological Exam Neurological Exam: Alert, Awake - Skin Skin Exam: Dry, Warm Assessment and Plan - Assessment and Plan (Free Text) Assessment: Orthostatic hypostention - Likely secondary to decreased PO intake vs high dose narcotics - Also reporting visual changes when sitting up too fast now - Recheck orthostatic vitals - IVF - TEDS stockings - Encourage positional changes - Continue to monitor Left sided facial swelling - Resolved 05/28 - Swelling decreased today, continue warm compresses - No leukocytosis or fevers documented - Will continue to apply warm compresses - Continue to monitor Body aches - Secondary to tumor burden/chemo - Changed Dilaudid 4mg PO Q4H PRN severe pain and 2 mg PRN moderate pain - will change long acting Oxycodone 50mg Q12 - Benadryl 25mg PO Q4H PRN - Benadryl 50mg PO QHS PRN - Flu neg - f/u palliative care consult for pain management - Per anesthesia - recommends current management as pt is not fully utilizing her PRN meds with her scheduled long acting pain meds. If pain persists, another option outpatient would be a plexus block. Abdominal Pain - Secondary to tumor burden/chemo vs opioid induced constipation vs bile congestion - History of colostomy, then reversal - Zofran 4mg IVP Q6 PRN - Changed Dilaudid 4mg PO Q4H PRN severe pain and 2 mg PRN moderate pain - will change long acting Oxycodone 50mg Q12 - Benadryl 25mg IV Q4H PRN - f/u palliative care consult - Anesthesia consult ([facility]) for pain management - recommends current management as pt is not fully utilizing her PRN meds with her scheduled long acting pain meds. If pain persists, another option outpatient would be a plexus block. - Abdominal US 05/17 - Unremarkable except for CBD dilatation of 1.1cm s/p cholecystectomy - GI consulted - recommends MRCP and abdominal xray. Continue supportive care and will continue to follow pt - Relistor not on formulary, started Golytely with no success yet. - MRCP 05/19 - no choledocholithiasis in setting of dilated CBD s/p cholecystectomy - Abdominal xray 05/18 - severe constipation, non-obstructive gas pattern - Will order fleet mineral oil enema Fevers/Chills - resolved - Blood cutlures x2 [id number] 05/20 - Recent urine culture negative - UA negative Dysuria - 05/28: Pain again, will get UA - Urine Cx 05/17 - negative - Pt complaining of difficult urination, straining - On prior CT, tumor burden found near ureter - UA: 3+ glucose, 1+ protein - Urine culture multiple species, probable contamination. Will repeat today () - f/u - Tamsulosin 0.4mg PO Daily; with this the dysuria is improved Type 2, Diabetes Mellitus - Accuchecks - 05/24 Increased Lantus to 40 units in AM, Increased Novalog 16 units ACTID - Hold Metformin 1000mg PO Daily due to renal function - A1C: 7.9 (05/03/16) - c/w current management Diffuse B-Cell lymphoma - Management per Hem/Onc - Hem/Onc: Dr. Machuca, help appreciated - Per Heme/Onc, pain is not due to tumor burden as her pain was before her cancer and she is currently in remission. - s/p 6 cycle of RCHOP - last day of prednisone 100mg PO given 05/14 - outpatient PET CT scan in 2 weeks Palliative Care consult, help appreciated - f/u reccs Dietary Referral, help appreciated - started on heart healthy diet Leukopenia - WBC stable. Will continue to follow - per Heme/Onc if ANC is <500 can give Filigastrim - f/u labs Hx of HTN - Normotensive - Denies currently taking home BP meds, though listed on recent admission Elevated Bun/Cr - Believed secondary to chemo - patient has had elevated creatinine into the mid 2's in the patient; this is more towards her baseline since chemo Constipation - Added miralax and mag-oxide - Ordered mineral fleet enema - Added colace - Senna-Colace Pruritus - Benadryl 25mg PRN Prophylaxis - Heparin 5000units SC Q8H - Protonix 40mg IV Daily - SCDs Dispo - Per PT, recommend continued PT at home <Tian Graham - Last Filed: 05/31/16 15:33> Objective - Vital Signs/Intake and Output Vital Signs (last 24 hours): Temp Pulse Resp BP Pulse Ox 98.6 F 77 20 156/91 H 97 05/31/16 08:00 05/31/16 11:59 05/31/16 08:00 05/31/16 08:00 05/31/16 08:00 Intake and Output: 05/31/16 05/31/16 06:59 18:59 Intake Total 1900 1050 Output Total 700 Balance 1200 1050 - Medications Medications: Current Medications Acetaminophen (Tylenol 325mg Tab) 650 mg PO Q6 PRN PRN Reason: Headache Last Admin: 05/31/16 05:08 Dose: 650 mg Al Hydrox/Mg Hydrox/Simethicone (Maalox 30 Ml) 30 ml PO HS PRN PRN Reason: Indigestion / Heartburn Last Admin: 05/31/16 02:27 Dose: 30 ml Diphenhydramine HCl (Benadryl) 50 mg IVP HS PRN PRN Reason: Itching / Pruritus Last Admin: 05/30/16 22:07 Dose: 50 mg Diphenhydramine HCl (Benadryl) 25 mg PO Q4 PRN PRN Reason: Itching / Pruritus Last Admin: 05/31/16 09:55 Dose: 25 mg Docusate Sodium (Colace) 100 mg PO BID [facility] Last Admin: 05/31/16 09:35 Dose: 100 mg Gabapentin (Neurontin) 300 mg PO BID [facility] Last Admin: 05/31/16 09:35 Dose: 300 mg Hydromorphone HCl (Dilaudid) 2 mg PO Q4H PRN PRN Reason: Pain, moderate (4-7) Last Admin: 05/31/16 02:27 Dose: 2 mg Hydromorphone HCl (Dilaudid) 4 mg PO Q4H PRN PRN Reason: Pain, severe (8-10) Last Admin: 05/29/16 12:47 Dose: 4 mg Sodium Chloride (Sodium Chloride 0.9%) 1,000 mls @ 100 mls/hr IV .Q10H [facility] Last Admin: 05/31/16 05:40 Dose: Not Given Insulin Aspart (Novolog) 16 unit SC ACTID [facility] Last Admin: 05/31/16 12:50 Dose: 16 unit Insulin Glargine (Lantus) 40 unit SC Q24H [facility] Last Admin: 05/31/16 12:46 Dose: 40 units Insulin Human Regular (Novolin R) 0 unit SC ACHS [facility] PRN Reason: Protocol Last Admin: 05/31/16 12:45 Dose: 2 unit Lactulose (Enulose) 20 gm PO HS [facility] Last Admin: 05/30/16 22:08 Dose: 20 gm Lidocaine (Lidoderm) 2 ea TD DAILY [facility] Last Admin: 05/31/16 09:55 Dose: 2 ea Meclizine HCl (Antivert) 25 mg PO DAILY [facility] Last Admin: 05/31/16 09:35 Dose: 25 mg Ondansetron HCl (Zofran Inj) 4 mg IVP Q4H PRN PRN Reason: Nausea/Vomiting Last Admin: 05/29/16 01:41 Dose: 4 mg Oxycodone HCl (Oxycontin Extended Release Tab) 40 mg PO Q12 [facility] Last Admin: 05/31/16 09:56 Dose: 40 mg Oxycodone HCl (Oxycontin Extended Release Tab) 10 mg PO Q12 [facility] Last Admin: 05/31/16 09:57 Dose: 10 mg Pantoprazole Sodium (Protonix Ec Tab) 40 mg PO DAILY [facility] Last Admin: 05/31/16 09:35 Dose: 40 mg Polyethylene Glycol (Miralax) 17 gm PO Q6H [facility] Last Admin: 05/31/16 10:00 Dose: 17 gm Senna/Docusate Sodium (Senokot S 50 Mg-8.6 Mg) 2 tab PO BID [facility] Last Admin: 05/31/16 09:35 Dose: 2 tab Sodium Chloride ([place] Baby Saline 30 Ml) 1 ml JONAS Q4H [facility] Last Admin: 05/31/16 11:30 Dose: 1 spr Zinc Acetate/Diphenhydramine (Benadryl 1% Zinc Acetate -0.1%) 0 cre TOP DAILY [facility] Last Admin: 05/31/16 12:51 Dose: 1 applic - Labs Labs: 05/31/16 08:00 05/31/16 08:00 Attending/Attestation - Attestation I have personally seen and examined this patient.: Yes I have fully participated in the care of the patient.: Yes I have reviewed all pertinent clinical information, including history, physical exam and plan: Yes Notes (Text): 05/31/16 15:32 Patient was seen and examined at bedside with the resident Patient is unstable on ambulation Continue current management Titrate pain medication. I agree with the above assessment and plan by the resident
[2016-05-28] MEDS ORDERED: Magnesium Citrate Oral SOL (300 ml) PO ONE (10:55)
[2016-05-28] MEDS: (Lantus) Insulin Glargine, Recombinant SC SCH (12:00)
[2016-05-28] MEDS: POLYETHYLENE GLYCOL 3350 17 GM/Dose PACKET PO SCH ×3 (12:10→23:15)
[2016-05-28] MEDS: Diphenhydramine 1% Cream (1 oz) TOP SCH (12:13)
[2016-05-28 15:11] LABS: URINE BILIRUBIN NEGATIVE (NEGATIVE); URINE BLOOD NEGATIVE (NEGATIVE); URINE COLOR Straw (YELLOW); URINE GLUCOSE (UA) NORMAL (Normal); URINE KETONE NEGATIVE (NEGATIVE); URINE LEUKOCYTE ESTERASE NEG Leu/uL (Negative); URINE PROTEIN NEGATIVE (NEGATIVE); URINE UROBILINOGEN NORMAL mg/dL (0.2-1.0); WBC URINE < 1 /hpf (0-5)
[2016-05-29] MEDS: Sodium Chloride Nasal 0.65% Soln (30ml) NAS SCH ×6 (03:57→23:00)
[2016-05-29] MEDS: Sodium Chloride 0.9% 1,000 ML IV SCH ×2 (04:09→14:19)
[2016-05-29] MEDS: POLYETHYLENE GLYCOL 3350 17 GM/Dose PACKET PO SCH ×4 (05:00→23:00)
[2016-05-29 08:42] LABS: BASO % 0.9 % (0.0-2.0); EOS % 0.7 % (0.0-4.0); HEMATOCRIT 26.8 % (34.0-47.0); LYMPH # 0.8 K/uL (1.0-4.3); LYMPH % 21.8 % (20.0-40.0); MEAN CELL VOLUME 87.1 fL (81.0-99.0); MEAN CORPUSCULAR HEMOGLOBIN 28.1 pg (27.0-31.0); MEAN CORPUSCULAR HGB CONC 32.2 g/dL (33.0-37.0); MEAN PLATELET VOLUME 7.8 fL (7.2-11.7); MONO # 0.5 K/uL (0.0-0.8); MONO % 14.7 % (0.0-10.0); NRBC % 0.1 % (0.0-2.0); RED CELL DISTRIBUTION WIDTH 17.4 % (11.5-14.5); WHITE BLOOD COUNT 3.6 K/uL (4.8-10.8)
[2016-05-29 08:53] LABS: POTASSIUM 4.3 mmol/L (3.6-5.2)
[2016-05-29 09:00] LABS: BILIRUBIN,TOTAL 0.5 mg/dL (0.2-1.3)
[2016-05-29] MEDS: oxyCODONE 10 mg ER Tab (oxyCONTIN) PO SCH ×2 (09:06→21:56)
[2016-05-29] MEDS: Pantoprazole 40 mg EC Tab PO SCH (09:06)
[2016-05-29] MEDS: Docusate-Senna 50 mg-8.6 mg Tab PO SCH ×2 (09:06→17:36)
[2016-05-29] MEDS: oxyCODONE 40 mg ER Tab (oxyCONTIN) PO SCH ×2 (09:07→22:01)
[2016-05-29] MEDS: (Novolog) Insulin Aspart, Recombinant 100 u/ml 10 ml vial SC SCH ×3 (09:09→17:37)
[2016-05-29] MEDS: (Novolin R) Insulin Human Regular 100 units/ml vial SC SCH ×4 (09:09→21:42)
[2016-05-29] MEDS: Lidocaine 5% Patch TD SCH (09:12)
[2016-05-29] MEDS: Diphenhydramine 1% Cream (1 oz) TOP SCH (11:18)
[2016-05-29] MEDS: (Lantus) Insulin Glargine, Recombinant SC SCH (12:50)
--- NOTE | 2016-05-29 17:37 | CP.PCM.PN ---
Subjective - Date & Time of Evaluation Date of Evaluation: 05/29/16 Time of Evaluation: 17:32 - Subjective Subjective: PGY-1 note for medicine service Pt seen and examined at bedside. Pt has no new complaints today. Still complains of pain and weakness/dizziness with walking. Denies any fevers, chills , chest pain, sob, nausea or vomiting. Objective - Vital Signs/Intake and Output Vital Signs (last 24 hours): Temp Pulse Resp BP Pulse Ox 98.5 F 74 20 128/80 98 05/29/16 16:15 05/29/16 16:29 05/29/16 16:15 05/29/16 16:15 05/29/16 16:15 Intake and Output: 05/29/16 05/29/16 06:59 18:59 Intake Total 1380 450 Output Total 340 Balance 1040 450 - Medications Medications: Current Medications Al Hydrox/Mg Hydrox/Simethicone (Maalox 30 Ml) 30 ml PO HS PRN PRN Reason: Indigestion / Heartburn Last Admin: 05/20/16 20:55 Dose: 30 ml Diphenhydramine HCl (Benadryl) 50 mg IVP HS PRN PRN Reason: Itching / Pruritus Last Admin: 05/27/16 21:40 Dose: 50 mg Diphenhydramine HCl (Benadryl) 25 mg PO Q4 PRN PRN Reason: Itching / Pruritus Last Admin: 05/29/16 12:50 Dose: 25 mg Docusate Sodium (Colace) 100 mg PO BID [facility] Last Admin: 05/29/16 09:08 Dose: 100 mg Gabapentin (Neurontin) 300 mg PO BID [facility] Last Admin: 05/29/16 09:08 Dose: 300 mg Hydromorphone HCl (Dilaudid) 2 mg PO Q4H PRN PRN Reason: Pain, moderate (4-7) Last Admin: 05/28/16 16:45 Dose: 2 mg Hydromorphone HCl (Dilaudid) 4 mg PO Q4H PRN PRN Reason: Pain, severe (8-10) Last Admin: 05/29/16 12:47 Dose: 4 mg Sodium Chloride (Sodium Chloride 0.9%) 1,000 mls @ 100 mls/hr IV .Q10H [facility] Last Admin: 05/29/16 14:19 Dose: 100 mls/hr Insulin Aspart (Novolog) 16 unit SC ACTID [facility] Last Admin: 05/29/16 12:54 Dose: Not Given Insulin Glargine (Lantus) 40 unit SC Q24H [facility] Last Admin: 05/29/16 12:50 Dose: 40 units Insulin Human Regular (Novolin R) 0 unit SC ACHS [facility] PRN Reason: Protocol Last Admin: 05/29/16 12:50 Dose: 4 unit Lactulose (Enulose) 20 gm PO HS [facility] Last Admin: 05/28/16 22:00 Dose: 20 gm Lidocaine (Lidoderm) 2 ea TD DAILY [facility] Last Admin: 05/29/16 09:12 Dose: 2 ea Meclizine HCl (Antivert) 25 mg PO DAILY [facility] Ondansetron HCl (Zofran Inj) 4 mg IVP Q4H PRN PRN Reason: Nausea/Vomiting Last Admin: 05/29/16 01:41 Dose: 4 mg Oxycodone HCl (Oxycontin Extended Release Tab) 40 mg PO Q12 [facility] Last Admin: 05/29/16 09:07 Dose: 40 mg Oxycodone HCl (Oxycontin Extended Release Tab) 10 mg PO Q12 [facility] Last Admin: 05/29/16 09:06 Dose: 10 mg Pantoprazole Sodium (Protonix Ec Tab) 40 mg PO DAILY [facility] Last Admin: 05/29/16 09:06 Dose: 40 mg Polyethylene Glycol (Miralax) 17 gm PO Q6H [facility] Last Admin: 05/29/16 11:23 Dose: 17 gm Senna/Docusate Sodium (Senokot S 50 Mg-8.6 Mg) 2 tab PO BID [facility] Last Admin: 05/29/16 09:06 Dose: 2 tab Sodium Chloride ([place] Baby Saline 30 Ml) 1 ml JONAS Q4H [facility] Last Admin: 05/29/16 11:17 Dose: 2 spr Zinc Acetate/Diphenhydramine (Benadryl 1% Zinc Acetate -0.1%) 0 cre TOP DAILY [facility] Last Admin: 05/29/16 11:18 Dose: Not Given - Labs Labs: 05/29/16 08:31 05/29/16 08:31 - Constitutional Appears: Non-toxic, No Acute Distress - Head Exam Head Exam: ATRAUMATIC, NORMOCEPHALIC - Eye Exam Eye Exam: Normal appearance Pupil Exam: PERRL - ENT Exam ENT Exam: Mucous Membranes Moist - Respiratory Exam Respiratory Exam: Clear to Ausculation Bilateral, NORMAL BREATHING PATTERN - Cardiovascular Exam Cardiovascular Exam: +S1, +S2 - GI/Abdominal Exam GI & Abdominal Exam: Soft, Tenderness, Normal Bowel Sounds - Neurological Exam Neurological Exam: Alert, Awake - Skin Skin Exam: Dry, Warm Assessment and Plan - Assessment and Plan (Free Text) Assessment: Dizziness - Secondary to orthostasis vs inner ear dysfunction - Pt states she has had "ear problems" in the past requiring tympanostomy tube placement - Will try meclizine Orthostatic hypostention - Likely secondary to decreased PO intake vs high dose narcotics - Also reporting visual changes when sitting up too fast now - Recheck orthostatic vitals - IVF - TEDS stockings - Encourage positional changes - Continue to monitor Left sided facial swelling - Resolved 05/28 - Swelling decreased today, continue warm compresses - No leukocytosis or fevers documented - Will continue to apply warm compresses - Continue to monitor Body aches - Secondary to tumor burden/chemo - Changed Dilaudid 4mg PO Q4H PRN severe pain and 2 mg PRN moderate pain - will change long acting Oxycodone 50mg Q12 - Benadryl 25mg PO Q4H PRN - Benadryl 50mg PO QHS PRN - Flu neg - f/u palliative care consult for pain management - Per anesthesia - recommends current management as pt is not fully utilizing her PRN meds with her scheduled long acting pain meds. If pain persists, another option outpatient would be a plexus block. Abdominal Pain - Secondary to tumor burden/chemo vs opioid induced constipation vs bile congestion - History of colostomy, then reversal - Zofran 4mg IVP Q6 PRN - Changed Dilaudid 4mg PO Q4H PRN severe pain and 2 mg PRN moderate pain - will change long acting Oxycodone 50mg Q12 - Benadryl 25mg IV Q4H PRN - f/u palliative care consult - Anesthesia consult ([facility]) for pain management - recommends current management as pt is not fully utilizing her PRN meds with her scheduled long acting pain meds. If pain persists, another option outpatient would be a plexus block. - Abdominal US 05/17 - Unremarkable except for CBD dilatation of 1.1cm s/p cholecystectomy - GI consulted - recommends MRCP and abdominal xray. Continue supportive care and will continue to follow pt - Relistor not on formulary, started Golytely with no success yet. - MRCP 05/19 - no choledocholithiasis in setting of dilated CBD s/p cholecystectomy - Abdominal xray 05/18 - severe constipation, non-obstructive gas pattern - Will order fleet mineral oil enema Fevers/Chills - resolved - Blood cutlures x2 [id number] 05/20 - Recent urine culture negative - UA negative Dysuria - 05/28: Pain again, will get UA - Urine Cx 05/17 - negative - Pt complaining of difficult urination, straining - On prior CT, tumor burden found near ureter - UA: 3+ glucose, 1+ protein - Urine culture multiple species, probable contamination. Will repeat today () - f/u - Tamsulosin 0.4mg PO Daily; with this the dysuria is improved Type 2, Diabetes Mellitus - Accuchecks - 05/24 Increased Lantus to 40 units in AM, Increased Novalog 16 units ACTID - Hold Metformin 1000mg PO Daily due to renal function - A1C: 7.9 (05/03/16) - c/w current management Diffuse B-Cell lymphoma - Management per Hem/Onc - Hem/Onc: Dr. Machuca, help appreciated - Per Heme/Onc, pain is not due to tumor burden as her pain was before her cancer and she is currently in remission. - s/p 6 cycle of RCHOP - last day of prednisone 100mg PO given 05/14 - outpatient PET CT scan in 2 weeks Palliative Care consult, help appreciated - f/u reccs Dietary Referral, help appreciated - started on heart healthy diet Leukopenia - WBC stable. Will continue to follow - per Heme/Onc if ANC is <500 can give Filigastrim - f/u labs Hx of HTN - Normotensive - Denies currently taking home BP meds, though listed on recent admission Elevated Bun/Cr - Believed secondary to chemo - patient has had elevated creatinine into the mid 2's in the patient; this is more towards her baseline since chemo Constipation - Added miralax and mag-oxide - Ordered mineral fleet enema - Added colace - Senna-Colace Pruritus - Benadryl 25mg PRN Prophylaxis - Heparin 5000units SC Q8H - Protonix 40mg IV Daily - SCDs Dispo - Per PT, recommend continued PT at home
[2016-05-29] MEDS: DiphenhydrAMINE 50 mg/ml Inj IVP PRN (22:00)
[2016-05-30] MEDS: Sodium Chloride Nasal 0.65% Soln (30ml) NAS SCH ×6 (03:00→22:41)
[2016-05-30] MEDS: POLYETHYLENE GLYCOL 3350 17 GM/Dose PACKET PO SCH ×4 (05:38→22:42)
[2016-05-30 07:24] LABS: BASO % 0.6 % (0.0-2.0); EOS % 0.7 % (0.0-4.0); HEMATOCRIT 27.1 % (34.0-47.0); LYMPH # 0.9 K/uL (1.0-4.3); LYMPH % 21.2 % (20.0-40.0); MEAN CELL VOLUME 86.1 fL (81.0-99.0); MEAN CORPUSCULAR HGB CONC 33.6 g/dL (33.0-37.0); MEAN PLATELET VOLUME 7.8 fL (7.2-11.7); MONO # 0.6 K/uL (0.0-0.8); MONO % 15.3 % (0.0-10.0); NRBC % 0.1 % (0.0-2.0); RED CELL DISTRIBUTION WIDTH 17.3 % (11.5-14.5); WHITE BLOOD COUNT 4.1 K/uL (4.8-10.8)
[2016-05-30 07:36] LABS: POTASSIUM 3.9 mmol/L (3.6-5.2)
[2016-05-30 07:38] LABS: BILIRUBIN,TOTAL 0.1 mg/dL (0.2-1.3); TOTAL PROTEIN 6.1 g/dL (6.3-8.3)
[2016-05-30 07:39] LABS: CALCIUM 8.7 mg/dl (8.6-10.4)
[2016-05-30 07:56] LABS: T4 6.96 ug/dL (5.5-11.0)
[2016-05-30 08:09] LABS: CORTISOL AM 6.4 ug/dL (4.46-22.7)
[2016-05-30 08:10] LABS: THYROID STIMULATING HORMONE 2.76 mIU/L (0.46-4.68)
[2016-05-30] MEDS: oxyCODONE 10 mg ER Tab (oxyCONTIN) PO SCH ×2 (09:40→22:12)
[2016-05-30] MEDS: oxyCODONE 40 mg ER Tab (oxyCONTIN) PO SCH ×2 (09:40→22:14)
[2016-05-30] MEDS: Pantoprazole 40 mg EC Tab PO SCH (09:41)
[2016-05-30] MEDS: Lidocaine 5% Patch TD SCH (09:42)
[2016-05-30] MEDS: (Novolin R) Insulin Human Regular 100 units/ml vial SC SCH ×4 (09:43→21:56)
[2016-05-30] MEDS: (Novolog) Insulin Aspart, Recombinant 100 u/ml 10 ml vial SC SCH ×3 (09:44→17:33)
[2016-05-30] MEDS: Diphenhydramine 1% Cream (1 oz) TOP SCH (10:00)
[2016-05-30] MEDS: Docusate-Senna 50 mg-8.6 mg Tab PO SCH ×2 (11:00→17:20)
[2016-05-30] MEDS: (Lantus) Insulin Glargine, Recombinant SC SCH (12:42)
[2016-05-30] MEDS: Sodium Chloride 0.9% 1,000 ML IV SCH ×3 (12:47→22:39)
--- NOTE | 2016-05-30 14:55 | CP.PCM.PN ---
<Johnny Scott - Last Filed: 05/30/16 16:22> Subjective - Date & Time of Evaluation Date of Evaluation: 05/30/16 Time of Evaluation: 14:53 - Subjective Subjective: PGY-1 note for medicine service Pt seen and examined at bedside. Pt has no new complaints. Reports continued dizziness and abdominal pain. Denies fevers, chills, chest pain, palpitations, nausea or vomiting. Objective - Vital Signs/Intake and Output Vital Signs (last 24 hours): Temp Pulse Resp BP Pulse Ox 97.9 F 97 H 20 152/82 H 97 05/30/16 00:20 05/30/16 00:34 05/30/16 00:20 05/30/16 00:20 05/30/16 00:20 Intake and Output: 05/30/16 05/30/16 06:59 18:59 Intake Total 900 Output Total 800 Balance 100 - Medications Medications: Current Medications Acetaminophen (Tylenol 325mg Tab) 650 mg PO Q6 PRN PRN Reason: Headache Last Admin: 05/30/16 12:47 Dose: 650 mg Al Hydrox/Mg Hydrox/Simethicone (Maalox 30 Ml) 30 ml PO HS PRN PRN Reason: Indigestion / Heartburn Last Admin: 05/20/16 20:55 Dose: 30 ml Diphenhydramine HCl (Benadryl) 50 mg IVP HS PRN PRN Reason: Itching / Pruritus Last Admin: 05/29/16 22:00 Dose: 50 mg Diphenhydramine HCl (Benadryl) 25 mg PO Q4 PRN PRN Reason: Itching / Pruritus Last Admin: 05/30/16 09:55 Dose: 25 mg Docusate Sodium (Colace) 100 mg PO BID [facility] Last Admin: 05/30/16 09:41 Dose: 100 mg Gabapentin (Neurontin) 300 mg PO BID [facility] Last Admin: 05/30/16 09:41 Dose: 300 mg Hydromorphone HCl (Dilaudid) 2 mg PO Q4H PRN PRN Reason: Pain, moderate (4-7) Last Admin: 05/30/16 04:07 Dose: 2 mg Hydromorphone HCl (Dilaudid) 4 mg PO Q4H PRN PRN Reason: Pain, severe (8-10) Last Admin: 05/29/16 12:47 Dose: 4 mg Sodium Chloride (Sodium Chloride 0.9%) 1,000 mls @ 100 mls/hr IV .Q10H [facility] Last Admin: 05/30/16 12:47 Dose: 100 mls/hr Insulin Aspart (Novolog) 16 unit SC ACTID [facility] Last Admin: 05/30/16 12:42 Dose: 16 unit Insulin Glargine (Lantus) 40 unit SC Q24H [facility] Last Admin: 05/30/16 12:42 Dose: 40 units Insulin Human Regular (Novolin R) 0 unit SC ACHS [facility] PRN Reason: Protocol Last Admin: 05/30/16 12:42 Dose: 2 unit Lactulose (Enulose) 20 gm PO HS [facility] Last Admin: 05/29/16 21:57 Dose: Not Given Lidocaine (Lidoderm) 2 ea TD DAILY [facility] Last Admin: 05/30/16 09:42 Dose: 2 ea Meclizine HCl (Antivert) 25 mg PO DAILY [facility] Last Admin: 05/30/16 09:41 Dose: 25 mg Ondansetron HCl (Zofran Inj) 4 mg IVP Q4H PRN PRN Reason: Nausea/Vomiting Last Admin: 05/29/16 01:41 Dose: 4 mg Oxycodone HCl (Oxycontin Extended Release Tab) 40 mg PO Q12 [facility] Last Admin: 05/30/16 09:40 Dose: 40 mg Oxycodone HCl (Oxycontin Extended Release Tab) 10 mg PO Q12 [facility] Last Admin: 05/30/16 09:40 Dose: 10 mg Pantoprazole Sodium (Protonix Ec Tab) 40 mg PO DAILY [facility] Last Admin: 05/30/16 09:41 Dose: 40 mg Polyethylene Glycol (Miralax) 17 gm PO Q6H [facility] Last Admin: 05/30/16 11:00 Dose: Not Given Senna/Docusate Sodium (Senokot S 50 Mg-8.6 Mg) 2 tab PO BID [facility] Last Admin: 05/30/16 11:00 Dose: Not Given Sodium Chloride (Buffalo Baby Saline 30 Ml) 1 ml JONAS Q4H [facility] Last Admin: 05/30/16 07:00 Dose: Not Given Zinc Acetate/Diphenhydramine (Benadryl 1% Zinc Acetate -0.1%) 0 cre TOP DAILY [facility] Last Admin: 05/29/16 11:18 Dose: Not Given - Labs Labs: 05/30/16 07:09 05/30/16 07:09 - Constitutional Appears: Non-toxic, No Acute Distress - Head Exam Head Exam: ATRAUMATIC, NORMOCEPHALIC - Eye Exam Eye Exam: Normal appearance Pupil Exam: PERRL - ENT Exam ENT Exam: Mucous Membranes Moist - Respiratory Exam Respiratory Exam: Clear to Ausculation Bilateral, NORMAL BREATHING PATTERN - Cardiovascular Exam Cardiovascular Exam: +S1, +S2 - GI/Abdominal Exam GI & Abdominal Exam: Soft, Tenderness, Normal Bowel Sounds - Neurological Exam Neurological Exam: Alert, Awake - Skin Skin Exam: Dry, Warm Assessment and Plan - Assessment and Plan (Free Text) Assessment: Dispo - PT needs to clear pt for discharge home. Pt still reports dizziness with standing. [place] Hallpike inconclusive, continuing with meclizine Dizziness - Secondary to orthostasis vs inner ear dysfunction - Pt states she has had "ear problems" in the past requiring tympanostomy tube placement - Will try meclizine Orthostatic hypostention - Likely secondary to decreased PO intake vs high dose narcotics - Also reporting visual changes when sitting up too fast now - Recheck orthostatic vitals - IVF - TEDS stockings - Encourage positional changes - Continue to monitor Left sided facial swelling - Resolved 05/28 - Swelling decreased today, continue warm compresses - No leukocytosis or fevers documented - Will continue to apply warm compresses - Continue to monitor Body aches - Secondary to tumor burden/chemo - Changed Dilaudid 4mg PO Q4H PRN severe pain and 2 mg PRN moderate pain - will change long acting Oxycodone 50mg Q12 - Benadryl 25mg PO Q4H PRN - Benadryl 50mg PO QHS PRN - Flu neg - f/u palliative care consult for pain management - Per anesthesia - recommends current management as pt is not fully utilizing her PRN meds with her scheduled long acting pain meds. If pain persists, another option outpatient would be a plexus block. Abdominal Pain - Secondary to tumor burden/chemo vs opioid induced constipation vs bile congestion - History of colostomy, then reversal - Zofran 4mg IVP Q6 PRN - Changed Dilaudid 4mg PO Q4H PRN severe pain and 2 mg PRN moderate pain - will change long acting Oxycodone 50mg Q12 - Benadryl 25mg IV Q4H PRN - f/u palliative care consult - Anesthesia consult ([facility]y) for pain management - recommends current management as pt is not fully utilizing her PRN meds with her scheduled long acting pain meds. If pain persists, another option outpatient would be a plexus block. - Abdominal US 05/17 - Unremarkable except for CBD dilatation of 1.1cm s/p cholecystectomy - GI consulted - recommends MRCP and abdominal xray. Continue supportive care and will continue to follow pt - Relistor not on formulary, started Golytely with no success yet. - MRCP 05/19 - no choledocholithiasis in setting of dilated CBD s/p cholecystectomy - Abdominal xray 05/18 - severe constipation, non-obstructive gas pattern - Will order fleet mineral oil enema Fevers/Chills - resolved - Blood cutlures x2 [id number] 05/20 - Recent urine culture negative - UA negative Dysuria - 05/28: Pain again, will get UA - Urine Cx 05/17 - negative - Pt complaining of difficult urination, straining - On prior CT, tumor burden found near ureter - UA: 3+ glucose, 1+ protein - Urine culture multiple species, probable contamination. Will repeat today () - f/u - Tamsulosin 0.4mg PO Daily; with this the dysuria is improved Type 2, Diabetes Mellitus - Accuchecks - 05/24 Increased Lantus to 40 units in AM, Increased Novalog 16 units ACTID - Hold Metformin 1000mg PO Daily due to renal function - A1C: 7.9 (05/03/16) - c/w current management Diffuse B-Cell lymphoma - Management per Hem/Onc - Hem/Onc: Dr. Machuca, help appreciated - Per Heme/Onc, pain is not due to tumor burden as her pain was before her cancer and she is currently in remission. - s/p 6 cycle of RCHOP - last day of prednisone 100mg PO given 05/14 - outpatient PET CT scan in 2 weeks Palliative Care consult, help appreciated - f/u reccs Dietary Referral, help appreciated - started on heart healthy diet Leukopenia - WBC stable. Will continue to follow - per Heme/Onc if ANC is <500 can give Filigastrim - f/u labs Hx of HTN - Normotensive - Denies currently taking home BP meds, though listed on recent admission Elevated Bun/Cr - Believed secondary to chemo - patient has had elevated creatinine into the mid 2's in the patient; this is more towards her baseline since chemo Constipation - Added miralax and mag-oxide - Ordered mineral fleet enema - Added colace - Senna-Colace Pruritus - Benadryl 25mg PRN Prophylaxis - Heparin 5000units SC Q8H - Protonix 40mg IV Daily - SCDs <Chaka Sheffield - Last Filed: 05/31/16 09:27> Objective - Vital Signs/Intake and Output Vital Signs (last 24 hours): Temp Pulse Resp BP Pulse Ox 98.7 F 86 20 153/84 H 97 05/30/16 23:31 05/31/16 00:35 05/30/16 23:31 05/30/16 23:31 05/30/16 23:31 Intake and Output: 05/31/16 05/31/16 06:59 18:59 Intake Total 1900 Output Total 700 Balance 1200 - Medications Medications: Current Medications Acetaminophen (Tylenol 325mg Tab) 650 mg PO Q6 PRN PRN Reason: Headache Last Admin: 05/31/16 05:08 Dose: 650 mg Al Hydrox/Mg Hydrox/Simethicone (Maalox 30 Ml) 30 ml PO HS PRN PRN Reason: Indigestion / Heartburn Last Admin: 05/31/16 02:27 Dose: 30 ml Diphenhydramine HCl (Benadryl) 50 mg IVP HS PRN PRN Reason: Itching / Pruritus Last Admin: 05/30/16 22:07 Dose: 50 mg Diphenhydramine HCl (Benadryl) 25 mg PO Q4 PRN PRN Reason: Itching / Pruritus Last Admin: 05/31/16 02:27 Dose: 25 mg Docusate Sodium (Colace) 100 mg PO BID [facility] Last Admin: 05/30/16 17:32 Dose: 100 mg Gabapentin (Neurontin) 300 mg PO BID [facility] Last Admin: 05/30/16 17:32 Dose: 300 mg Hydromorphone HCl (Dilaudid) 2 mg PO Q4H PRN PRN Reason: Pain, moderate (4-7) Last Admin: 05/31/16 02:27 Dose: 2 mg Hydromorphone HCl (Dilaudid) 4 mg PO Q4H PRN PRN Reason: Pain, severe (8-10) Last Admin: 05/29/16 12:47 Dose: 4 mg Sodium Chloride (Sodium Chloride 0.9%) 1,000 mls @ 100 mls/hr IV .Q10H [facility] Last Admin: 05/31/16 05:40 Dose: Not Given Insulin Aspart (Novolog) 16 unit SC ACTID [facility] Last Admin: 05/31/16 08:21 Dose: 16 unit Insulin Glargine (Lantus) 40 unit SC Q24H [facility] Last Admin: 05/30/16 12:42 Dose: 40 units Insulin Human Regular (Novolin R) 0 unit SC ACHS [facility] PRN Reason: Protocol Last Admin: 05/31/16 08:19 Dose: 6 unit Lactulose (Enulose) 20 gm PO HS [facility] Last Admin: 05/30/16 22:08 Dose: 20 gm Lidocaine (Lidoderm) 2 ea TD DAILY [facility] Last Admin: 05/30/16 09:42 Dose: 2 ea Meclizine HCl (Antivert) 25 mg PO DAILY [facility] Last Admin: 05/30/16 09:41 Dose: 25 mg Ondansetron HCl (Zofran Inj) 4 mg IVP Q4H PRN PRN Reason: Nausea/Vomiting Last Admin: 05/29/16 01:41 Dose: 4 mg Oxycodone HCl (Oxycontin Extended Release Tab) 40 mg PO Q12 [facility] Last Admin: 05/30/16 22:14 Dose: 40 mg Oxycodone HCl (Oxycontin Extended Release Tab) 10 mg PO Q12 [facility] Last Admin: 05/30/16 22:12 Dose: 10 mg Pantoprazole Sodium (Protonix Ec Tab) 40 mg PO DAILY [facility] Last Admin: 05/30/16 09:41 Dose: 40 mg Polyethylene Glycol (Miralax) 17 gm PO Q6H [facility] Last Admin: 05/31/16 05:30 Dose: Not Given Senna/Docusate Sodium (Senokot S 50 Mg-8.6 Mg) 2 tab PO BID [facility] Last Admin: 05/30/16 17:20 Dose: 2 tab Sodium Chloride (Buffalo Baby Saline 30 Ml) 1 ml JONAS Q4H [facility] Last Admin: 05/31/16 07:20 Dose: Not Given Zinc Acetate/Diphenhydramine (Benadryl 1% Zinc Acetate -0.1%) 0 cre TOP DAILY [facility] Last Admin: 05/30/16 10:00 Dose: 1 applic - Labs Labs: 05/31/16 08:00 05/31/16 08:00 Attending/Attestation - Attestation I have personally seen and examined this patient.: Yes I have fully participated in the care of the patient.: Yes I have reviewed all pertinent clinical information, including history, physical exam and plan: Yes Notes (Text): Patient with large B-cell lymphoma, on chemo (responding well per onc), admitted with intractable R flank and R sided abd pain; Dizziness since past few days, described as sensation of room moving; also with R ear tinnitus and bilateral machine like sounds; Attempted Katherin-Hallpike maneuver but no nystagmus seen; has mild bilateral ataxia on finger-nose but only when arms outstretched and close to target; started on meclizine yesterday; Borderline orthostatic hypotension when assessed by PT 2 days ago; on IVF, lower leg stockings; DM better controlled, continue lantus 40 u daily and aspart with meals; Pain appears better controlled on oxycontin 50 mg ER q12 but still getting frequent prn PO dilaudid; goal dose of oxycontin 60 mg q12h; continue gabapentin (added last week); may benefit from MRI to assess flank pain that radiates to groin but patient refuses; Dispo: Can d/c home once able to ambulate safely.
[2016-05-30] MEDS: DiphenhydrAMINE 50 mg/ml Inj IVP PRN (22:07)
[2016-05-31] MEDS: Aluminum Hydroxide/Magnesium Hydroxide Susp (30 mL) PO PRN (02:27)
[2016-05-31] MEDS: Sodium Chloride Nasal 0.65% Soln (30ml) NAS SCH ×6 (03:00→22:07)
[2016-05-31] MEDS: POLYETHYLENE GLYCOL 3350 17 GM/Dose PACKET PO SCH ×4 (05:30→22:01)
[2016-05-31] MEDS: Sodium Chloride 0.9% 1,000 ML IV SCH ×2 (05:40→15:50)
[2016-05-31] MEDS: (Novolin R) Insulin Human Regular 100 units/ml vial SC SCH ×4 (08:19→22:00)
[2016-05-31] MEDS: (Novolog) Insulin Aspart, Recombinant 100 u/ml 10 ml vial SC SCH ×3 (08:21→16:50)
[2016-05-31 08:25] LABS: BASO % 0.8 % (0.0-2.0); EOS # 0.1 K/uL (0.0-0.7); EOS % 1.6 % (0.0-4.0); HEMATOCRIT 26.8 % (34.0-47.0); LYMPH # 0.8 K/uL (1.0-4.3); LYMPH % 19.6 % (20.0-40.0); MEAN CELL VOLUME 85.9 fL (81.0-99.0); MEAN CORPUSCULAR HGB CONC 33.8 g/dL (33.0-37.0); MEAN PLATELET VOLUME 7.7 fL (7.2-11.7); MONO # 0.6 K/uL (0.0-0.8); MONO % 15.3 % (0.0-10.0); POTASSIUM 3.9 mmol/L (3.6-5.2); RED CELL DISTRIBUTION WIDTH 16.8 % (11.5-14.5)
[2016-05-31 08:27] LABS: ALB/GLOB RATIO 0.9 (1.0-2.1); BILIRUBIN,TOTAL 0.3 mg/dL (0.2-1.3); TOTAL PROTEIN 6.2 g/dL (6.3-8.3)
[2016-05-31 08:28] LABS: CALCIUM 8.5 mg/dl (8.6-10.4)
[2016-05-31] MEDS: Pantoprazole 40 mg EC Tab PO SCH (09:35)
[2016-05-31] MEDS: Docusate-Senna 50 mg-8.6 mg Tab PO SCH ×2 (09:35→17:51)
[2016-05-31] MEDS: Lidocaine 5% Patch TD SCH (09:55)
[2016-05-31] MEDS: oxyCODONE 40 mg ER Tab (oxyCONTIN) PO SCH ×2 (09:56→21:58)
[2016-05-31] MEDS: oxyCODONE 10 mg ER Tab (oxyCONTIN) PO SCH ×2 (09:57→21:57)
[2016-05-31] MEDS: (Lantus) Insulin Glargine, Recombinant SC SCH (12:46)
[2016-05-31] MEDS: Diphenhydramine 1% Cream (1 oz) TOP SCH (12:51)
--- NOTE | 2016-05-31 16:24 | CP.PCM.PN ---
<Johnny Scott - Last Filed: 05/31/16 16:18> Subjective - Date & Time of Evaluation Date of Evaluation: 05/31/16 Time of Evaluation: 16:19 - Subjective Subjective: PGY-1 note for medicine service Pt seen and examined at bedside. Pt reports less dizziness today. She also states that her pain is still there but not any worse. She denies any fevers, chills, chest pain, sob, palpitations, nausea or vomiting. Objective - Vital Signs/Intake and Output Vital Signs (last 24 hours): Temp Pulse Resp BP Pulse Ox 98.6 F 77 20 156/91 H 97 05/31/16 08:00 05/31/16 11:59 05/31/16 08:00 05/31/16 08:00 05/31/16 08:00 Intake and Output: 05/31/16 05/31/16 06:59 18:59 Intake Total 1900 1050 Output Total 700 Balance 1200 1050 - Medications Medications: Current Medications Acetaminophen (Tylenol 325mg Tab) 650 mg PO Q6 PRN PRN Reason: Headache Last Admin: 05/31/16 05:08 Dose: 650 mg Al Hydrox/Mg Hydrox/Simethicone (Maalox 30 Ml) 30 ml PO HS PRN PRN Reason: Indigestion / Heartburn Last Admin: 05/31/16 02:27 Dose: 30 ml Diphenhydramine HCl (Benadryl) 50 mg IVP HS PRN PRN Reason: Itching / Pruritus Last Admin: 05/30/16 22:07 Dose: 50 mg Diphenhydramine HCl (Benadryl) 25 mg PO Q4 PRN PRN Reason: Itching / Pruritus Last Admin: 05/31/16 09:55 Dose: 25 mg Docusate Sodium (Colace) 100 mg PO BID [facility] Last Admin: 05/31/16 09:35 Dose: 100 mg Gabapentin (Neurontin) 300 mg PO BID [facility] Last Admin: 05/31/16 09:35 Dose: 300 mg Hydromorphone HCl (Dilaudid) 2 mg PO Q4H PRN PRN Reason: Pain, moderate (4-7) Last Admin: 05/31/16 02:27 Dose: 2 mg Hydromorphone HCl (Dilaudid) 4 mg PO Q4H PRN PRN Reason: Pain, severe (8-10) Last Admin: 05/29/16 12:47 Dose: 4 mg Sodium Chloride (Sodium Chloride 0.9%) 1,000 mls @ 100 mls/hr IV .Q10H [facility] Last Admin: 05/31/16 05:40 Dose: Not Given Insulin Aspart (Novolog) 16 unit SC ACTID [facility] Last Admin: 05/31/16 12:50 Dose: 16 unit Insulin Glargine (Lantus) 40 unit SC Q24H [facility] Last Admin: 05/31/16 12:46 Dose: 40 units Insulin Human Regular (Novolin R) 0 unit SC ACHS [facility] PRN Reason: Protocol Last Admin: 05/31/16 12:45 Dose: 2 unit Lactulose (Enulose) 20 gm PO HS [facility] Last Admin: 05/30/16 22:08 Dose: 20 gm Lidocaine (Lidoderm) 2 ea TD DAILY [facility] Last Admin: 05/31/16 09:55 Dose: 2 ea Meclizine HCl (Antivert) 25 mg PO DAILY [facility] Last Admin: 05/31/16 09:35 Dose: 25 mg Ondansetron HCl (Zofran Inj) 4 mg IVP Q4H PRN PRN Reason: Nausea/Vomiting Last Admin: 05/29/16 01:41 Dose: 4 mg Oxycodone HCl (Oxycontin Extended Release Tab) 40 mg PO Q12 [facility] Last Admin: 05/31/16 09:56 Dose: 40 mg Oxycodone HCl (Oxycontin Extended Release Tab) 10 mg PO Q12 [facility] Last Admin: 05/31/16 09:57 Dose: 10 mg Pantoprazole Sodium (Protonix Ec Tab) 40 mg PO DAILY [facility] Last Admin: 05/31/16 09:35 Dose: 40 mg Polyethylene Glycol (Miralax) 17 gm PO Q6H [facility] Last Admin: 05/31/16 10:00 Dose: 17 gm Senna/Docusate Sodium (Senokot S 50 Mg-8.6 Mg) 2 tab PO BID [facility] Last Admin: 05/31/16 09:35 Dose: 2 tab Sodium Chloride (Alexander Baby Saline 30 Ml) 1 ml JONAS Q4H [facility] Last Admin: 05/31/16 11:30 Dose: 1 spr Zinc Acetate/Diphenhydramine (Benadryl 1% Zinc Acetate -0.1%) 0 cre TOP DAILY [facility] Last Admin: 05/31/16 12:51 Dose: 1 applic - Labs Labs: 05/31/16 08:00 05/31/16 08:00 - Constitutional Appears: Non-toxic, No Acute Distress - Head Exam Head Exam: ATRAUMATIC, NORMOCEPHALIC - Eye Exam Eye Exam: Normal appearance Pupil Exam: PERRL - ENT Exam ENT Exam: Mucous Membranes Moist - Respiratory Exam Respiratory Exam: Clear to Ausculation Bilateral, NORMAL BREATHING PATTERN - Cardiovascular Exam Cardiovascular Exam: +S1, +S2 - GI/Abdominal Exam GI & Abdominal Exam: Soft, Normal Bowel Sounds - Neurological Exam Neurological Exam: Alert, Awake - Skin Skin Exam: Dry, Warm Assessment and Plan - Assessment and Plan (Free Text) Assessment: Dispo - PT needs to clear pt for discharge home, however pt is still orthostatic. Pt still reports dizziness with standing. Katherin Hallpike inconclusive , continuing with meclizine Dizziness - Secondary to orthostasis vs inner ear dysfunction - Pt states she has had "ear problems" in the past requiring tympanostomy tube placement - Will try meclizine Orthostatic hypostention - Likely secondary to decreased PO intake vs high dose narcotics - Also reporting visual changes when sitting up too fast now - Recheck orthostatic vitals - IVF - TEDS stockings - Encourage positional changes - Continue to monitor Left sided facial swelling - Resolved 05/28 - Swelling decreased today, continue warm compresses - No leukocytosis or fevers documented - Will continue to apply warm compresses - Continue to monitor Body aches - Secondary to tumor burden/chemo - Changed Dilaudid 4mg PO Q4H PRN severe pain and 2 mg PRN moderate pain - will change long acting Oxycodone 50mg Q12 - Benadryl 25mg PO Q4H PRN - Benadryl 50mg PO QHS PRN - Flu neg - f/u palliative care consult for pain management - Per anesthesia - recommends current management as pt is not fully utilizing her PRN meds with her scheduled long acting pain meds. If pain persists, another option outpatient would be a plexus block. Abdominal Pain - Secondary to tumor burden/chemo vs opioid induced constipation vs bile congestion - History of colostomy, then reversal - Zofran 4mg IVP Q6 PRN - Changed Dilaudid 4mg PO Q4H PRN severe pain and 2 mg PRN moderate pain - will change long acting Oxycodone 50mg Q12 - Benadryl 25mg IV Q4H PRN - f/u palliative care consult - Anesthesia consult ([facility]) for pain management - recommends current management as pt is not fully utilizing her PRN meds with her scheduled long acting pain meds. If pain persists, another option outpatient would be a plexus block. - Abdominal US 05/17 - Unremarkable except for CBD dilatation of 1.1cm s/p cholecystectomy - GI consulted - recommends MRCP and abdominal xray. Continue supportive care and will continue to follow pt - Relistor not on formulary, started Golytely with no success yet. - MRCP 05/19 - no choledocholithiasis in setting of dilated CBD s/p cholecystectomy - Abdominal xray 05/18 - severe constipation, non-obstructive gas pattern - Will order fleet mineral oil enema Fevers/Chills - resolved - Blood cutlures x2 [id number] 05/20 - Recent urine culture negative - UA negative Dysuria - 05/28: Pain again, will get UA - Urine Cx 05/17 - negative - Pt complaining of difficult urination, straining - On prior CT, tumor burden found near ureter - UA: 3+ glucose, 1+ protein - Urine culture multiple species, probable contamination. Will repeat today () - f/u - Tamsulosin 0.4mg PO Daily; with this the dysuria is improved Type 2, Diabetes Mellitus - Accuchecks - 05/24 Increased Lantus to 40 units in AM, Increased Novalog 16 units ACTID - Hold Metformin 1000mg PO Daily due to renal function - A1C: 7.9 (05/03/16) - c/w current management Diffuse B-Cell lymphoma - Management per Hem/Onc - Hem/Onc: Dr. Machuca, help appreciated - Per Heme/Onc, pain is not due to tumor burden as her pain was before her cancer and she is currently in remission. - s/p 6 cycle of RCHOP - last day of prednisone 100mg PO given 05/14 - outpatient PET CT scan in 2 weeks Palliative Care consult, help appreciated - f/u reccs Dietary Referral, help appreciated - started on heart healthy diet Leukopenia - WBC stable. Will continue to follow - per Heme/Onc if ANC is <500 can give Filigastrim - f/u labs Hx of HTN - Normotensive - Denies currently taking home BP meds, though listed on recent admission Elevated Bun/Cr - Believed secondary to chemo - patient has had elevated creatinine into the mid 2's in the patient; this is more towards her baseline since chemo Constipation - Added miralax and mag-oxide - Ordered mineral fleet enema - Added colace - Senna-Colace Pruritus - Benadryl 25mg PRN Prophylaxis - Heparin 5000units SC Q8H - Protonix 40mg IV Daily - SCDs <Shelley Grahamn M - Last Filed: 06/01/16 13:43> Objective - Vital Signs/Intake and Output Vital Signs (last 24 hours): Temp Pulse Resp BP Pulse Ox 98.3 F 94 H 20 164/91 H 96 06/01/16 08:29 06/01/16 08:29 06/01/16 08:29 06/01/16 08:29 06/01/16 08:29 Intake and Output: 06/01/16 06/01/16 06:59 18:59 Intake Total 1860 Balance 1860 - Medications Medications: Current Medications Acetaminophen (Tylenol 325mg Tab) 650 mg PO Q6 PRN PRN Reason: Headache Last Admin: 05/31/16 05:08 Dose: 650 mg Al Hydrox/Mg Hydrox/Simethicone (Maalox 30 Ml) 30 ml PO HS PRN PRN Reason: Indigestion / Heartburn Last Admin: 05/31/16 02:27 Dose: 30 ml Diphenhydramine HCl (Benadryl) 50 mg IVP HS PRN PRN Reason: Itching / Pruritus Last Admin: 05/31/16 22:05 Dose: 50 mg Diphenhydramine HCl (Benadryl) 25 mg PO Q4 PRN PRN Reason: Itching / Pruritus Last Admin: 06/01/16 08:37 Dose: 25 mg Docusate Sodium (Colace) 100 mg PO BID [facility] Last Admin: 06/01/16 10:55 Dose: 100 mg Gabapentin (Neurontin) 300 mg PO BID [facility] Last Admin: 06/01/16 10:55 Dose: 300 mg Hydromorphone HCl (Dilaudid) 2 mg PO Q4H PRN PRN Reason: Pain, moderate (4-7) Last Admin: 06/01/16 03:02 Dose: 2 mg Hydromorphone HCl (Dilaudid) 4 mg PO Q4H PRN PRN Reason: Pain, severe (8-10) Last Admin: 06/01/16 08:37 Dose: 4 mg Sodium Chloride (Sodium Chloride 0.9%) 1,000 mls @ 100 mls/hr IV .Q10H [facility] Last Admin: 06/01/16 05:00 Dose: 100 mls/hr Insulin Aspart (Novolog) 16 unit SC ACTID [facility] Last Admin: 06/01/16 13:09 Dose: 16 unit Insulin Glargine (Lantus) 40 unit SC Q24H [facility] Last Admin: 06/01/16 13:10 Dose: Not Given Insulin Human Regular (Novolin R) 0 unit SC ACHS [facility] PRN Reason: Protocol Last Admin: 06/01/16 13:09 Dose: 2 unit Lactulose (Enulose) 20 gm PO HS [facility] Last Admin: 05/31/16 22:00 Dose: 20 gm Lidocaine (Lidoderm) 2 ea TD DAILY [facility] Last Admin: 06/01/16 10:56 Dose: 2 ea Meclizine HCl (Antivert) 25 mg PO DAILY [facility] Last Admin: 06/01/16 10:55 Dose: 25 mg Ondansetron HCl (Zofran Inj) 4 mg IVP Q4H PRN PRN Reason: Nausea/Vomiting Last Admin: 05/29/16 01:41 Dose: 4 mg Oxycodone HCl (Oxycontin Extended Release Tab) 40 mg PO Q12 [facility] Last Admin: 06/01/16 11:02 Dose: 40 mg Oxycodone HCl (Oxycontin Extended Release Tab) 10 mg PO Q12 [facility] Last Admin: 06/01/16 11:03 Dose: 10 mg Pantoprazole Sodium (Protonix Ec Tab) 40 mg PO DAILY [facility] Last Admin: 06/01/16 10:55 Dose: 40 mg Polyethylene Glycol (Miralax) 17 gm PO Q6H [facility] Last Admin: 06/01/16 11:50 Dose: 17 gm Senna/Docusate Sodium (Senokot S 50 Mg-8.6 Mg) 2 tab PO BID [facility] Last Admin: 06/01/16 11:50 Dose: 2 tab Sodium Chloride (Alexander Baby Saline 30 Ml) 1 ml JONAS Q4H [facility] Last Admin: 06/01/16 11:05 Dose: 1 spr Zinc Acetate/Diphenhydramine (Benadryl 1% Zinc Acetate -0.1%) 0 cre TOP DAILY [facility] Last Admin: 06/01/16 11:05 Dose: 1 applic - Labs Labs: 05/31/16 08:00 05/31/16 08:00 Attending/Attestation - Attestation I have personally seen and examined this patient.: Yes I have fully participated in the care of the patient.: Yes I have reviewed all pertinent clinical information, including history, physical exam and plan: Yes Notes (Text): 06/01/16 13:42 Patient was seen and examined at bedside with the resident Patient feels better today We will check orthostatic blood pressure Continue physical therapy daily Continue pain management Discharge planning is in progress
[2016-05-31] MEDS: DiphenhydrAMINE 50 mg/ml Inj IVP PRN (22:05)
[2016-06-01] MEDS: Sodium Chloride 0.9% 1,000 ML IV SCH ×2 (01:45→05:00)
[2016-06-01] MEDS: Sodium Chloride Nasal 0.65% Soln (30ml) NAS SCH ×4 (03:27→17:05)
[2016-06-01] MEDS: POLYETHYLENE GLYCOL 3350 17 GM/Dose PACKET PO SCH ×2 (05:30→11:50)
[2016-06-01 08:30] VITALS: RESP 20
[2016-06-01] MEDS: (Novolog) Insulin Aspart, Recombinant 100 u/ml 10 ml vial SC SCH ×2 (08:31→13:09)
[2016-06-01] MEDS: (Novolin R) Insulin Human Regular 100 units/ml vial SC SCH ×2 (08:33→13:09)
[2016-06-01] MEDS: Pantoprazole 40 mg EC Tab PO SCH (10:55)
[2016-06-01] MEDS: Lidocaine 5% Patch TD SCH (10:56)
[2016-06-01] MEDS: oxyCODONE 40 mg ER Tab (oxyCONTIN) PO SCH (11:02)
[2016-06-01] MEDS: oxyCODONE 10 mg ER Tab (oxyCONTIN) PO SCH (11:03)
[2016-06-01] MEDS: Diphenhydramine 1% Cream (1 oz) TOP SCH (11:05)
[2016-06-01] MEDS: Docusate-Senna 50 mg-8.6 mg Tab PO SCH (11:50)
[2016-06-01] MEDS: (Lantus) Insulin Glargine, Recombinant SC SCH (13:10)
--- NOTE | 2016-06-01 16:26 | CP.PCM.DIS ---
Provider - Provider Date of Admission: 05/15/16 15:55 Attending physician: Edmond Tellez MD Primary care physician: Juan Antonio Duenas Consults: Palliative - Obradovic Pain management - Casey Heme/Onc - [place] Time Spent in preparation of Discharge (in minutes): 31 Hospital Course - Lab Results Lab Results: Micro Results 05/28/16 15:03 Urine Urine Culture - Final <10,000 CFU/ML. MULTIPLE SPECIES. PROBABLE CONTAMINATION. 05/20/16 13:45 Blood Blood Culture - Final NO GROWTH AFTER 5 DAYS 05/20/16 13:45 Blood Gram Stain - Final TEST NOT PERFORMED 05/20/16 13:47 Blood Blood Culture - Final NO GROWTH AFTER 5 DAYS 05/20/16 13:47 Blood Gram Stain - Final TEST NOT PERFORMED 05/17/16 Unknown Urine,Clean Catch Urine Culture - Final No Growth (<1,000 CFU/ML) Most Recent Lab Values WBC 4.0 K/uL (4.8-10.8) L 05/31/16 08:00 RBC 3.13 Mil/uL (3.80-5.20) L 05/31/16 08:00 Hgb 9.1 g/dL (11.0-16.0) L 05/31/16 08:00 Hct 26.8 % (34.0-47.0) L 05/31/16 08:00 MCV 85.9 fL (81.0-99.0) 05/31/16 08:00 MCH 29.0 pg (27.0-31.0) 05/31/16 08:00 MCHC 33.8 g/dL (33.0-37.0) 05/31/16 08:00 RDW 16.8 % (11.5-14.5) H 05/31/16 08:00 Plt Count 242 K/uL (130-400) 05/31/16 08:00 MPV 7.7 fL (7.2-11.7) 05/31/16 08:00 Neut % (Auto) 62.7 % (50.0-75.0) 05/31/16 08:00 Lymph % (Auto) 19.6 % (20.0-40.0) L 05/31/16 08:00 [place] % (Auto) 15.3 % (0.0-10.0) H 05/31/16 08:00 Eos % (Auto) 1.6 % (0.0-4.0) 05/31/16 08:00 Baso % (Auto) 0.8 % (0.0-2.0) 05/31/16 08:00 Neut # 2.5 K/uL (1.8-7.0) 05/31/16 08:00 Lymph # 0.8 K/uL (1.0-4.3) L 05/31/16 08:00 [place] # 0.6 K/uL (0.0-0.8) 05/31/16 08:00 Eos # 0.1 K/uL (0.0-0.7) 05/31/16 08:00 Baso # 0.0 K/uL (0.0-0.2) 05/31/16 08:00 Neutrophils % (Manual) 57 % (50-75) 05/23/16 08:09 Band Neutrophils % 5 % (0-2) H 05/23/16 08:09 Lymphocytes % (Manual) 17 % (20-40) L 05/23/16 08:09 Reactive Lymphs % 3 % (0-0) H 05/21/16 07:40 Monocytes % (Manual) 20 % (0-10) H 05/23/16 08:09 Eosinophils % (Manual) 1 % (0-4) 05/23/16 08:09 Basophils % (Manual) 1 % (0-2) 05/21/16 07:40 Metamyelocytes % 1 % (0-0) H 05/22/16 08:00 Myelocytes % 1 % (0-0) H 05/22/16 08:00 Nucleated RBC % 2 % (0-0) H 05/19/16 06:30 Differential Comment 05/16/16 07:06 Platelet Estimate Normal (NORMAL) 05/23/16 08:09 Large Platelets Present 05/22/16 08:00 Polychromasia Slight 05/23/16 08:09 Hypochromasia (manual) Slight 05/23/16 08:09 Poikilocytosis (manual Slight 05/23/16 08:09 Basophilic Stippling Slight 05/20/16 08:00 Anisocytosis (manual) Slight 05/23/16 08:09 Microcytosis (manual) Slight 05/23/16 08:09 Macrocytosis (manual) Slight 05/23/16 08:09 Spherocytes Slight 05/23/16 08:09 Tear Drop Cells Slight 05/23/16 08:09 Ovalocytes Slight 05/23/16 08:09 Smear Path Review 05/16/16 07:06 Sodium 135 mmol/L (132-148) 05/31/16 08:00 Potassium 3.9 mmol/L (3.6-5.2) 05/31/16 08:00 Chloride 99 mmol/L (98-107) 05/31/16 08:00 Carbon Dioxide 29 mmol/L (22-30) 05/31/16 08:00 Anion Gap 12 (10-20) 05/31/16 08:00 BUN 20 mg/dL (7-17) H 05/31/16 08:00 Creatinine 1.4 MG/DL (0.7-1.2) H 05/31/16 08:00 Est GFR ( Amer) 48 05/31/16 08:00 Est GFR (Non-Af Amer) 40 05/31/16 08:00 POC Glucose (mg/dL) 190 mg/dL (65-110) H 06/01/16 11:13 Random Glucose 186 mg/dL (65-105) H 05/31/16 08:00 Calcium 8.5 mg/dl (8.6-10.4) L 05/31/16 08:00 Phosphorus 5.1 mg/dL (2.5-4.5) H 05/24/16 08:30 Magnesium 1.7 mg/dL (1.6-2.3) 05/24/16 08:30 Total Bilirubin 0.3 mg/dL (0.2-1.3) 05/31/16 08:00 AST 22 U/L (14-36) 05/31/16 08:00 ALT 25 U/L (9-52) 05/31/16 08:00 Alkaline Phosphatase 64 U/L (38-126) 05/31/16 08:00 Total Protein 6.2 g/dL (6.3-8.3) L 05/31/16 08:00 Albumin 3.0 g/dL (3.5-5.0) L 05/31/16 08:00 Globulin 3.2 gm/dL (2.2-3.9) 05/31/16 08:00 Albumin/Globulin Ratio 0.9 (1.0-2.1) L 05/31/16 08:00 Thyroxine (T4) 6.96 ug/dL (5.5-11.0) 05/30/16 07:09 TSH 3rd Generation 2.76 mIU/L (0.46-4.68) 05/30/16 07:09 Cortisol AM Sample 6.4 ug/dL (4.46-22.7) 05/30/16 07:09 Urine Color Straw (YELLOW) 05/28/16 14:52 Urine Clarity Clear (Clear) 05/28/16 14:52 Urine pH 6.0 (5.0-8.0) 05/28/16 14:52 Ur Specific [place] 1.010 (1.003-1.030) 05/28/16 14:52 Urine Protein Negative mg/dL (NEGATIVE) 05/28/16 14:52 Urine Glucose (UA) Normal mg/dL (Normal) 05/28/16 14:52 Urine Ketones Negative mg/dL (NEGATIVE) 05/28/16 14:52 Urine Blood Negative (NEGATIVE) 05/28/16 14:52 Urine Nitrate Negative (NEGATIVE) 05/28/16 14:52 Urine Bilirubin Negative (NEGATIVE) 05/28/16 14:52 Urine Urobilinogen Normal mg/dL (0.2-1.0) 05/28/16 14:52 Ur Leukocyte Esterase Neg Alli/uL (Negative) 05/28/16 14:52 Urine WBC (Auto) < 1 /hpf (0-5) 05/28/16 14:52 Urine RBC (Auto) < 1 /hpf (0-3) 05/18/16 07:08 Ur Squamous Epith Cells 2 /hpf (0-5) 05/28/16 14:52 - Hospital Course Hospital Course: On hospital admission 50 year old female with PMHx significant for B cell lymphoma, HTN, GERD, DM presents with chief complaint of generalized body pain. Patient was sent up from the chemotherapy infusion center for pain control. Patient feels that her current pain control regimen of Dilaudid is insufficient. She admits taking Dilaudid doses earlier than prescribed because her pain is intolerable. She states she has had similar pain for the "past year," about the time of her cancer diagnosis. The worst pain she admits is in her right flank and neck, which cause her not to be able get comfortable during the day, sleep at night, or want to walk or eat. She describes the pain as 10/10, constant "24/7," that feels like her "bones are on-fire." She states this was her final dose of chemotherapy, which she was receiving every 3 weeks for the last 6 months. After each chemotherapy session, pt receives 5 days of prednisone, which has caused her blood glucose numbers to be increased. She admits increased urge to urinate, but states she is only able to pass a small amount of urine at each void. She admits to having to push to urinate. She denies hematuria, dysuria, burning sensation, or vaginal discharge. On hospital course Pt was admitted for inadequate pain control secondary to her hx of B cell lymphoma. Hematology-oncology was consulted due to patient history of B-cell lymphoma. Dr. Machuca recommended pain management for chronic pain complaints and lymphoma f/u w/ outpatient PET scan. Pain management consulted w/ D. Casey recommended continuing PO oxycontin at home w/ transition to hydromorphone IV or PO prn w/ f/u for outpatient celiac plexus block. GI consulted due to dilated CBD w/ MRCP and abdominal X-ray ordered. MRCP revealed no significant interval change compared to previous exam, no evidence of choledocholithiasis, and slightly dilated CBD probably due to cholecystectomy. Abdominal X-ray revealed severe fecal retention in right hemicolon w/ interval clearing of stool w/in left hemicolon. Renal scan ordered early in course due to R flank pain which revealed no evidence of obstruction w/ normal flow and function bilaterally. GI recommended continued supportive care w/ aggressive bowel regimen involving enemas, and outpatient lubiprostone/movantik. Palliative care consulted with recommendations to continue oxycontin, begin neurontin, lidoderm patch, and placement on [employer]. Pt experienced pain and swelling in upper extremity requiring r/o of DVT revealing thrombosis in right basilic vein w/ severe reduction in venous return w/ no evidence of thrombosis in left UE. Pt also developed orthostasis which was treated with IVF hydration and PT. Pt progressed and was eventually stable for discharge. Pt was discharged on the following medications: DiphenhydrAMINE [Benadryl] 25 mg PO Q4 PRN #30 cap PRN Reason: Itching / Pruritus Docusate [Colace] 100 mg PO BID #60 cap Docusate [Colace] 100 mg PO TID #90 cap HYDROmorphone [Dilaudid] 4 mg PO Q4H PRN #42 tab PRN Reason: Pain, Severe (8-10) Insulin Glargine, Recombina [Lantus] 40 unit SC Q24H #1 vial Lidocaine 5% [Lidoderm] 2 ea TD DAILY #14 patch Meclizine [Meclizine*] 25 mg PO DAILY #30 tab Gabapentin [Neurontin] 300 mg PO BID #60 cap Insulin Aspart, Recombinant [Novolog] 16 unit SC ACTID #1 vial Oxycodone HCl [Oxycodone HCl ER] 40 mg PO Q12H #14 tab.er.12h Pantoprazole Sodium [Protonix] 40 mg PO DAILY #30 ect She was instructed to follow up in the clinic to get referrals to see both pain management and hematology/oncology. This is a summary of hospital course, please see EMR for further details - Date & Time of H&P Date of H&P: 05/13/16 Time of H&P: 22:53 Discharge Exam - Head Exam Head Exam: ATRAUMATIC, NORMOCEPHALIC - Eye Exam Eye Exam: Normal appearance - ENT Exam ENT Exam: Mucous Membranes Moist - Respiratory Exam Respiratory Exam: Clear to PA & Lateral, NORMAL BREATHING PATTERN - GI/Abdominal Exam GI & Abdominal Exam: Normal Bowel Sounds, Unremarkable - Extremities Exam Extremities exam: normal capillary refill - Neurological Exam Neurological exam: Alert, Oriented x3 - Skin Skin Exam: Dry, Warm Discharge Plan - Discharge Medications Prescriptions: DiphenhydrAMINE [Benadryl] 25 mg PO Q4 PRN #30 cap PRN Reason: Itching / Pruritus Docusate [Colace] 100 mg PO BID #60 cap Docusate [Colace] 100 mg PO TID #90 cap HYDROmorphone [Dilaudid] 4 mg PO Q4H PRN #42 tab PRN Reason: Pain, Severe (8-10) Insulin Glargine, Recombina [Lantus] 40 unit SC Q24H #1 vial Lidocaine 5% [Lidoderm] 2 ea TD DAILY #14 patch Meclizine [Meclizine*] 25 mg PO DAILY #30 tab Gabapentin [Neurontin] 300 mg PO BID #60 cap Insulin Aspart, Recombinant [Novolog] 16 unit SC ACTID #1 vial Oxycodone HCl [Oxycodone HCl ER] 40 mg PO Q12H #14 tab.er.12h Pantoprazole Sodium [Protonix] 40 mg PO DAILY #30 ect - Follow Up Plan Condition: FAIR Disposition: HOME/ ROUTINE Instructions: Diphenhydramine (By mouth), Meclizine (By mouth), Laxative, Stool Softeners (By mouth), Hydromorphone (By mouth), Gabapentin (By mouth), Pantoprazole (By mouth), Insulin Aspart, Recombinant (By injection), Oxycodone, Slow Release (By mouth), Lidocaine Patch (On the skin), Insulin Glargine (By injection), Hodgkin Disease (DC), Non-Hodgkin Lymphoma (DC), Chronic Pain (DC) Additional Instructions: You are medically cleared for discharge. Take the medications that are prescribed to you as directed. You will need to follow up in the [facility] within the next week. Please arrive at the clinic at 9:00am for a walk-in appointment. You will need referrals for follow up to see pain management for possible plexus block and to see Hematology/Oncology with Dr Machuca. At home, get up slowly and sit down if you begin to feel dizzy. Use handrails or walker for extra support. Spend time sitting upright in chairs as much as possible with feet on the floor. Return to the hospital with any new concerning or worsening symptoms. Referrals: [facility] at [facility] [Outside]
[2016-06-01 17:12] VITALS: BP 156/91; PULSE 88; TEMP 97.9; O2SAT 97
== END 2016-06-01 17:35 | disposition home or self-care (01) | DRG 463 ==
LOC: C.ER 14:37 → C.3T 21:53 → OBSVTOIN 05-15 15:55 → C.3T 05-31 19:02
PROVIDERS: ADMIT Internal Medicine; ATTEND Internal Medicine
DX: G89.3 Neoplasm related pain (acute) (chronic) (principal); C83.30 Diffuse large B-cell lymphoma, unspecified site; K59.31 Toxic megacolon; C78.00 Secondary malignant neoplasm of unspecified lung; C78.7 Secondary malignant neoplasm of liver and intrahepatic bile duct; D70.9 Neutropenia, unspecified; K83.8 Other specified diseases of biliary tract; E11.65 Type 2 diabetes mellitus with hyperglycemia; N18.3 Chronic kidney disease, stage 3 (moderate); E11.22 Type 2 diabetes mellitus with diabetic chronic kidney disease; I82.611 Acute embolism and thrombosis of superficial veins of right upper extremity; D64.81 Anemia due to antineoplastic chemotherapy; M54.5 Low back pain; I12.9 Hypertensive chronic kidney disease with stage 1 through stage 4 chronic kidney disease, or unspecified chronic kidney disease; K21.9 Gastro-esophageal reflux disease without esophagitis; F17.200 Nicotine dependence, unspecified, uncomplicated; I95.1 Orthostatic hypotension; K59.03 Drug induced constipation; T40.2X5A Adverse effect of other opioids, initial encounter; T45.1X5A Adverse effect of antineoplastic and immunosuppressive drugs, initial encounter; T38.0X5A Adverse effect of glucocorticoids and synthetic analogues, initial encounter; H93.11 Tinnitus, right ear; K11.20 Sialoadenitis, unspecified; F40.240 Claustrophobia; L29.9 Pruritus, unspecified; Z51.5 Encounter for palliative care; Z79.4 Long term (current) use of insulin; Z79.84 Long term (current) use of oral hypoglycemic drugs; Z79.891 Long term (current) use of opiate analgesic; Z80.8 Family history of malignant neoplasm of other organs or systems; Z82.3 Family history of stroke; Z82.49 Family history of ischemic heart disease and other diseases of the circulatory system

== ENCOUNTER 2016-08-11 23:06 | Emergency (ER) | payer OTHER ==
[2016-08-11 23:06] VITALS: BMI 28.1
[2016-08-11 23:18] VITALS: O2SAT 98
[2016-08-11] MEDS ORDERED: DiphenhydrAMINE 50 mg/ml Inj IVP STA (23:32)
--- NOTE | 2016-08-11 23:35 | C.PDOC ---
History Of Present Illness 50 year old patient, with a past medical history of lymphoma, presents to the ED complaining of constant right sided abdominal pain with a stabbing sensation since yesterday. Patient completed chemotherapy in May. Prior records show she is doing better. Patient's lungs, lymph nodes and liver were involved. Recent scans show a good response to the chemo. Patient has chronic generalized abdominal pain. She has been taking short acting Dilaudid po because she cannot afford the long acting Dilaudid. Dr. Machuca tried to decrease the dose of narcotics to prevent addiction and since she was improving. He changed the prescription from 4 mg to 2 mg several times a day. Patient notes she has been taking 2 mg of Dilaudid po with minimal relief. The pain does not change with movement or change in position. Patient denies changes in bowel movements, fever , nausea, vomiting or urinary symptoms. Time Seen by Provider: 08/11/16 23:17 Chief Complaint (Nursing): Abdominal Pain History Per: Patient History/Exam Limitations: no limitations Onset/Duration Of Symptoms: Worse Since (yesterday) Current Symptoms Are (Timing): Still Present Context: Other Severity: Moderate Pain Scale Rating Of: 5 Location Of Pain/Discomfort: RUQ, RLQ Radiation Of Pain To:: None Quality Of Discomfort: "Pain" Exacerbating Factors: None Alleviating Factors: None Last Bowel Movement: Today Recent travel outside of the [place]: No Additional History Per: Prior Records Past Medical History Reviewed: Historical Data, Nursing Documentation, Vital Signs Vital Signs: Last Vital Signs Temp 97.9 F 08/11/16 23:14 Pulse 84 08/11/16 23:14 Resp 20 08/11/16 23:14 BP 156/103 H 08/11/16 23:14 Pulse Ox 98 08/12/16 01:17 - Medical History PMH: Anxiety, Arthritis (BACK AND KNEE PAIN), Depression, Diabetes, Gall Bladder Disease (cholecystectomy 3 yrs. ago), HTN, Malignancy (on chemo), Pancreatitis Surgical History: Cholecystectomy - [facility] Procedures ASSISTANCE WITH RESPIRATORY VENTILATION, 24-96 HRS, CPAP (10/14/15) BYPASS TRANSVERSE COLON TO CUTANEOUS, OPEN APPROACH (10/14/15) EXCISION OF AORTIC LYMPHATIC, PERCUTANEOUS APPROACH, DIAGN (09/20/15) EXCISION OF RIGHT UPPER LUNG LOBE, ENDO, DIAGN (10/14/15) EXCISION OF RIGHT UPPER LUNG LOBE, PERC APPROACH, DIAGN (01/01/16) EXCISION OF STOMACH, ENDO, DIAGN (05/24/15) INSERTION OF INFUSION DEV INTO SUP VENA CAVA, PERC APPROACH (01/01/16) INSERTION OF VAD INTO CHEST SUBCU/FASCIA, OPEN APPROACH (01/01/16) LAPAROSCOPIC CHOLECYSTECTOMY (08/23/13) MYRINGOTOMY W INTUBATION (09/01/12) REPAIR ABDOMINAL WALL, OPEN APPROACH (01/01/16) VENOUS CATHETERIZATION NEC (09/09/12) Family History: States: Unknown Family Hx - Social History Hx Tobacco Use: No Hx Alcohol Use: No Hx Substance Use: No - Immunization History Hx Tetanus Toxoid Vaccination: No Hx Influenza Vaccination: No Hx Pneumococcal Vaccination: No Review Of Systems Except As Marked, All Systems Reviewed And Found Negative. Constitutional: Negative for: Fever Gastrointestinal: Positive for: Abdominal Pain. Negative for: Nausea, Vomiting Genitourinary: Negative for: Dysuria, Hematuria, Other (bowel changes) Physical Exam - Physical Exam Appears: Non-toxic, No Acute Distress Skin: Warm, Dry Head: Atraumatic, Normacephalic Neck: Normal ROM, Supple Chest: Symmetrical Cardiovascular: Rhythm Regular Respiratory: Normal Breath Sounds, No Rales, No Rhonchi, No Wheezing Gastrointestinal/Abdominal: Soft, No Guarding, No Rebound, Hernia (right ventral ), Other (incision site; pain on deep palpation of RUQ and RLQ) Back: Normal Inspection, No CVA Tenderness Extremity: Bilateral: Atraumatic Neurological/Psych: Oriented x3, Normal Speech, Normal Cognition Gait: Steady ED Course And Treatment - Laboratory Results Result Diagrams: 08/11/16 23:49 08/11/16 23:49 Lab Interpretation: No Acute Changes O2 Sat by Pulse Oximetry: 98 (room air) Pulse Ox Interpretation: Normal - CT Scan/US Abdomen/Pelvis CT Other Rad Studies (CT/US): Read By Radiologist (Caitlyn Romeo MD), Radiology Report Reviewed CT/US Interpretation: EXAM: CT Abdomen and Pelvis Without Intravenous Contrast. CLINICAL HISTORY: 50 years old, female; Pain; Abdominal pain; Generalized; Patient HX: Cholecystectomy, reverse. partial bowel resection; Additional info: Abd pain. TECHNIQUE: Axial computed tomography images of the abdomen and pelvis without intravenous contrast. This. CT exam was performed using one or more of the following dose reduction techniques: automated. exposure control, adjustment of the mA and/or kV according to patient size, and/ or use of iterative. reconstruction technique. Coronal and sagittal reformatted images were created and reviewed. EXAM DATE/TIME: Exam ordered 08/11 11:31 PM. COMPARISON: CT - CHEST,ABDOMEN,PELVIS W/O CONT 04/28/2016 2:14: 00 PM. FINDINGS: Lower thorax: No acute findings. ABDOMEN: Liver: Unremarkable. Gallbladder and bile ducts: Cholecystectomy. The common bile duct is dilated, 14 mm, laboratory. correlation. Pancreas: Unremarkable. No ductal dilation. Spleen: Unremarkable. No splenomegaly. Adrenals: Unremarkable. No mass. Kidneys and ureters: Right upper pole renal lesion favored to be a simple cyst. No hydronephrosis. of either kidney. Phleboliths limit evaluation for small renal calculi. Stomach and bowel: There is limited evaluation of the rectum noting that it is under distended,. clinical correlation. There are numerous surgical clips in the abdomen in keeping with the history of. multiple previous bowel surgeries. No mucosal thickening in the areas that can be evaluated. Appendix: The appendix is clearly visualized and is normal. PELVIS: Bladder: Unremarkable. No stones. Reproductive: Unremarkable as visualized. ABDOMEN and PELVIS: Intraperitoneal space: Unremarkable. No free air. No significant fluid collection.See Soft Tissues. Bones/joints: No acute fracture. No dislocation. Soft tissues: There is a right upper quadrant hernia anterior to the liver containing nonobstructed. large intestine, this hernia is substantially larger than at time of the comparison study of April 28. 2016, fat within is indurated, coronal im 27. Extensive surgical changes of the anterior abdominal. wall. Vasculature: Unremarkable. No abdominal aortic aneurysm. Lymph nodes: Unremarkable. No enlarged lymph nodes. IMPRESSION: Substantial interval increase in size of the right upper quadrant hernia, which previously contained. only fat but now contains nonobstructed large intestine and indurated fat. Please correlate whether. this corresponds to the site of present symptoms. No evidence of bowel obstruction. Biliary ductal dilatation, favored that this is similar to previous, laboratory correlation. Please refer to the final report, as additional comparisons or other additional information may be. available at that time. Progress Note: Abdomen/Pelvis CT taken. Labs were sent. Benadryl and Dilaudid were given. Reevaluation Time: 01:18 Reassessment Condition: Improved (No longer in pain but now c/o itching. Additional Benadryl ordered. Patient has an appointment with Dr Cabezas tomorrow. ) Disposition - Disposition Referrals: Derrick Machuca MD [Staff Provider] - Shari Cabezas MD [Staff Provider] - Disposition: HOME/ ROUTINE Disposition Time: :19 Condition: IMPROVED Instructions: Ventral Hernia (ED) - Clinical Impression Clinical Impression: Abdominal wall pain, Ventral hernia without obstruction or gangrene - Scribe Statement The provider has reviewed the documentation as recorded by the Bereiblisa Kemp Provider Attestation: All medical record entries made by the Bereiblisa were at my direction and personally dictated by me. I have reviewed the chart and agree that the record accurately reflects my personal performance of the history, physical exam, medical decision making, and the department course for this patient. I have also personally directed, reviewed, and agree with the discharge instructions and disposition.
[2016-08-11] MEDS ORDERED: DiphenhydrAMINE 50 mg/ml Inj ONE (23:50)
[2016-08-11 23:52] LABS: BASO % 1.2 % (0.0-2.0); EOS # 0.2 K/uL (0.0-0.7); EOS % 4.3 % (0.0-4.0); HEMATOCRIT 39.3 % (34.0-47.0); LYMPH # 1.2 K/uL (1.0-4.3); LYMPH % 29.7 % (20.0-40.0); MEAN CELL VOLUME 82.2 fL (81.0-99.0); MEAN CORPUSCULAR HEMOGLOBIN 26.6 pg (27.0-31.0); MEAN CORPUSCULAR HGB CONC 32.3 g/dL (33.0-37.0); MEAN PLATELET VOLUME 7.9 fL (7.2-11.7); MONO # 0.5 K/uL (0.0-0.8); MONO % 12.8 % (0.0-10.0); NRBC % 0.2 % (0.0-2.0); RED CELL DISTRIBUTION WIDTH 14.3 % (11.5-14.5); WHITE BLOOD COUNT 4.2 K/uL (4.8-10.8)
[2016-08-12 00:03] LABS: POTASSIUM 3.8 mmol/L (3.6-5.2)
[2016-08-12 00:05] LABS: BILIRUBIN,TOTAL 0.5 mg/dL (0.2-1.3)
[2016-08-12 00:06] LABS: ALB/GLOB RATIO 1.2 (1.0-2.1); CALCIUM 8.8 mg/dl (8.6-10.4); TOTAL PROTEIN 7.4 g/dL (6.3-8.3)
[2016-08-12] MEDS ORDERED: DiphenhydrAMINE 50 mg/ml Inj IVP STA (01:20)
[2016-08-12 01:21] VITALS: BP 148/75; PULSE 80; RESP 16; TEMP 98.3
[2016-08-12] MEDS ORDERED: DiphenhydrAMINE 50 mg/ml Inj ONE (01:27)
--- NOTE | 2016-08-12 10:04 | CT ---
PROCEDURE: CT Abdomen and Pelvis without intravenous contrast HISTORY: abd pain COMPARISON: 04/28/2016 TECHNIQUE: Without contrast.. Contrast Dose: 0 Radiation dose: Total exam DLP = 970.24 mGy-cm. This CT exam was performed using one or more of the following dose reduction techniques: Automated exposure control, adjustment of the mA and/or kV according to patient size, and/or use of iterative reconstruction technique. FINDINGS: LOWER THORAX: Unremarkable. LIVER: Normal size, contour and attenuation. Mild intrahepatic biliary ductal dilatation. This may relate to prior cholecystectomy. However, please correlate with laboratory evaluation. GALLBLADDER AND BILE DUCTS: Status post cholecystectomy. Common bile duct dilated up to 12 mm. This may be related to prior cholecystectomy but again correlation with laboratory evaluation is suggested. PANCREAS: Unremarkable. No gross lesion or ductal dilatation. SPLEEN: Unremarkable. ADRENALS: Unremarkable. No mass. KIDNEYS AND URETERS: Right upper pole renal cortical cyst, 2.8 cm diameter. This measures 13 Hounsfield units. This is unchanged from prior examination. VASCULATURE: Unremarkable. No aortic aneurysm. BOWEL: No bowel obstruction. Herniation of colon at the site of previously noted mesenteric fat herniation in right upper quadrant of abdomen, lateral to rectus abdominis muscle. Status post partial colectomy. Mural thickening of rectum common nonspecific. The rectum is poorly distended. However, this appears to represent interval change from prior examination. This is best seen on coronal series 601, image 88 and axial series 3, image 139 through 157. APPENDIX: Unremarkable. Normal appendix. PERITONEUM: Unremarkable. No free fluid. No free air. LYMPH NODES: Unremarkable. No enlarged lymph nodes. BLADDER: Unremarkable. REPRODUCTIVE: Normal uterus BONES: No acute fracture. OTHER FINDINGS: None. IMPRESSION: Nonobstructed right upper quadrant ventral colonic hernia at site of prior herniated mesenteric fat. No bowel obstruction. Mural thickening of rectum of questionable significance due to lack of adequate distention. However, this appears to represent a interval change from prior CT examination. Intra and extrahepatic biliary dilatation. Status post cholecystectomy. Uncertain significance. Please correlate with laboratory evaluation. Additional minor findings as above. Preliminary interpretation of this examination was reported by Joota at 1:13 a.m. on 08/12/2016. There is concurrence of this report with the preliminary interpretation.
== END 2016-08-12 02:12 | disposition home or self-care (01) ==
LOC: C.ER 23:06
DX: K43.9 Ventral hernia without obstruction or gangrene (principal)
CPT/HCPCS: 74176; 80053; 83690; 85025; 96374; 96375; 96376; 99283; J1170; J1200

== ENCOUNTER 2016-09-16 05:13 | Emergency (ER) | payer MEDICAID, OTHER ==
[2016-09-16 05:14] VITALS: BMI 28.1
[2016-09-16 05:35] VITALS: RESP 16; O2SAT 100
--- NOTE | 2016-09-16 05:45 | C.PDOC ---
History Of Present Illness Patient is a 51 y/o female, with past medical history of lymphoma, presents to the ED for evaluation of left arm pain and right lower back pain for the past year. Patient states pain is worse in her wrist and noticed swelling. She has been taking Dilaudid 2mg twice a day with only minimal relief. Patient also complains of generalized body aches. States last chemotherapy was in May. Otherwise, denies any injury, fall, extremity weakness/numbness, skin changes, fever, or any other associated symptoms at this time. Oncologist: Dr. Machuca Time Seen by Provider: 09/16/16 05:32 Chief Complaint (Nursing): Back Pain History Per: Patient History/Exam Limitations: no limitations Onset/Duration Of Symptoms: Days (1 year) Current Symptoms Are (Timing): Still Present Quality Of Discomfort: "Pain" Associated Symptoms: None. denies: Incontinence, New Weakness, New Numbness Exacerbating Factor(s): Nothing Recent travel outside of the [place]: No Additional History Per: Patient Past Medical History Reviewed: Historical Data, Nursing Documentation, Vital Signs Vital Signs: Last Vital Signs Temp 98.2 F 09/16/16 05:20 Pulse 75 09/16/16 05:20 Resp 16 09/16/16 05:20 BP 157/89 H 09/16/16 05:20 Pulse Ox 100 09/16/16 06:34 - Medical History PMH: Anxiety, Arthritis (BACK AND KNEE PAIN), Depression, Diabetes, Gall Bladder Disease (cholecystectomy 3 yrs. ago), HTN, Malignancy (on chemo), Pancreatitis Surgical History: Cholecystectomy - [facility] Procedures ASSISTANCE WITH RESPIRATORY VENTILATION, 24-96 HRS, CPAP (10/14/15) BYPASS TRANSVERSE COLON TO CUTANEOUS, OPEN APPROACH (10/14/15) EXCISION OF AORTIC LYMPHATIC, PERCUTANEOUS APPROACH, DIAGN (09/20/15) EXCISION OF RIGHT UPPER LUNG LOBE, ENDO, DIAGN (10/14/15) EXCISION OF RIGHT UPPER LUNG LOBE, PERC APPROACH, DIAGN (01/01/16) EXCISION OF STOMACH, ENDO, DIAGN (05/24/15) INSERTION OF INFUSION DEV INTO SUP VENA CAVA, PERC APPROACH (01/01/16) INSERTION OF VAD INTO CHEST SUBCU/FASCIA, OPEN APPROACH (01/01/16) LAPAROSCOPIC CHOLECYSTECTOMY (08/23/13) MYRINGOTOMY W INTUBATION (09/01/12) REPAIR ABDOMINAL WALL, OPEN APPROACH (01/01/16) VENOUS CATHETERIZATION NEC (09/09/12) Family History: States: Unknown Family Hx - Social History Hx Tobacco Use: No Hx Alcohol Use: No Hx Substance Use: No - Immunization History Hx Tetanus Toxoid Vaccination: No Hx Influenza Vaccination: No Hx Pneumococcal Vaccination: No Review Of Systems Except As Marked, All Systems Reviewed And Found Negative. Constitutional: Positive for: Other (body aches). Negative for: Fever, Chills Cardiovascular: Negative for: Chest Pain Respiratory: Negative for: Shortness of Breath Gastrointestinal: Positive for: Other (hernia). Negative for: Abdominal Pain Genitourinary: Negative for: Dysuria Musculoskeletal: Positive for: Shoulder Pain (left), Back Pain (right flank), Hand Pain (left wrist pain) Skin: Negative for: Rash, Bruising Neurological: Negative for: Weakness, Numbness Physical Exam - Physical Exam Appears: Non-toxic, No Acute Distress Skin: Normal Color, Warm, Dry, No Rash, No Ecchymosis, No Other (no erythema to left wrist, left shoulder, or back) Head: Atraumatic, Normacephalic Eye(s): bilateral: Normal Inspection Neck: Normal ROM, Supple Chest: Symmetrical, Other (port in left upper chest wall, no swelling or erythema) Cardiovascular: Rhythm Regular, No Murmur Respiratory: Normal Breath Sounds, No Rales, No Rhonchi, No Wheezing Back: No Vertebral Tenderness, No Muscle Spasm, Paraspinal Tenderness (right flank) Extremity: Normal ROM (pain with abduction of left shoulder ), Tenderness (Left anterior shoulder, radial aspect of left wrist), No Pedal Edema, Capillary Refill (< 2 sec.), No Deformity, Swelling (mild swelling to left wrist) Pulses: Left Radial: Normal, Right Radial: Normal Neurological/Psych: Oriented x3, Normal Speech, Normal Motor, Normal Sensation Gait: Steady ED Course And Treatment O2 Sat by Pulse Oximetry: 100 (on RA) Pulse Ox Interpretation: Normal Progress Note: Left shoulder and wrist x-ray ordered and reviewed. Patient was treated with Dilaudid, and Toradol. Medical Decision Making Medical Decision Making: Prior records reviewed patient recently seen in ED 08/11/16 for abdominal pain with workup including labs and CT and discharged. Patient last admission was 01/21 for inadequate pain control secondary to her hx of B cell lymphoma. Dr. Machuca recommended pain management for chronic pain complaints. Renal scan ordered due to R flank pain which revealed no evidence of obstruction w/ normal flow and function bilaterally. Palliative care consulted with recommendations to continue oxycontin. Pt experienced pain and swelling in upper extremity requiring w/ no evidence of thrombosis in left UE. Left shoulder and wrist x-ray ordered and reviewed with no acute abnormality. Patient was treated with Dilaudid, and Toradol. She continued to have pain another 2mg given. Lance bandage applied for support. Advise patient to follow up with Dr Machuca outpatient or return to ED for any worsening symptoms. Disposition Counseled Patient/Family Regarding: Diagnosis, Need For Followup, Rx Given - Disposition Referrals: Derrick Machuca MD [Staff Provider] - Disposition: HOME/ ROUTINE Disposition Time: 06:26 Condition: STABLE Additional Instructions: Please continue with current pain regimen if needed take another additional dose per day. Consult with your oncologist Dr Machuca for further evaluation Return to ER for any worsening symptoms including severe pain, shortness of breath, numbness. Instructions: Chronic Pain (DC) - POA Present On Arrival: None - Clinical Impression Clinical Impression: Right flank pain, Left arm pain, Cancer-related pain - PA / ENVELOPE ADDRESSER / Resident Statement MD/DO has reviewed & agrees with the documentation as recorded. - Scribe Statement The provider has reviewed the documentation as recorded by the Codi Kemp All medical record entries made by the Codi were at my direction and personally dictated by me. I have reviewed the chart and agree that the record accurately reflects my personal performance of the history, physical exam, medical decision making, and the department course for this patient. I have also personally directed, reviewed, and agree with the discharge instructions and disposition.
[2016-09-16] MEDS ORDERED: Aluminum Hydroxide/Magnesium Hydroxide Susp (30 mL) ONE (06:38)
[2016-09-16 07:09] VITALS: BP 150/69; PULSE 85; TEMP 97
--- NOTE | 2016-09-16 07:52 | RAD ---
PROCEDURE: Left Wrist Radiographs. HISTORY: pain and swelling COMPARISON: None. FINDINGS: BONES: Normal. No fracture. JOINTS: Normal. No dislocation. SOFT TISSUES: Volar radial sided tissue swelling present OTHER FINDINGS: None. IMPRESSION: No fracture. Soft tissue swelling
--- NOTE | 2016-09-16 07:54 | RAD ---
PROCEDURE: Radiographs of the Left Shoulder HISTORY: pain to shoulder COMPARISON: No prior. FINDINGS: BONES: Normal. No fracture. JOINTS: Normal. Glenohumeral and acromioclavicular joints preserved. No osteoarthritis. SOFT TISSUES: Normal. OTHER FINDINGS: [id number] present IMPRESSION: Normal radiographs of the left shoulder.
== END 2016-09-16 07:07 | disposition home or self-care (01) ==
LOC: C.ER 05:13
DX: G89.3 Neoplasm related pain (acute) (chronic) (principal); M79.602 Pain in left arm; M54.5 Low back pain; Z85.79 Personal history of other malignant neoplasms of lymphoid, hematopoietic and related tissues
CPT/HCPCS: 73030; 73110; 96372; 99284; J1885

== ENCOUNTER 2016-10-15 13:59 | Emergency (ER) | payer OTHER ==
[2016-10-15 14:00] VITALS: BMI 28.2
[2016-10-15 14:18] VITALS: TEMP 97.9
--- NOTE | 2016-10-15 14:41 | RAD ---
HISTORY: chest pain COMPARISON: Chest x-ray performed 04/27/16 TECHNIQUE: Chest, one view. FINDINGS: Left-sided central venous catheter terminates at the expected location of the SVC. LUNGS: No focal consolidation. Please note that chest x-ray has limited sensitivity for the detection of pulmonary masses. PLEURA: No significant pleural effusion identified. No definite pneumothorax . CARDIOVASCULAR: The cardiomediastinal silhouette appears within normal limits of size. OSSEOUS STRUCTURES: No acute osseous abnormality identified. VISUALIZED UPPER ABDOMEN: Unremarkable. OTHER FINDINGS: None. IMPRESSION: Left-sided MediPort terminates at the expected location of the SVC.
[2016-10-15] MEDS ORDERED: HYDROmorphone 1 mg/ml ISec IVP STA ×2 (14:50→16:49)
[2016-10-15] MEDS ORDERED: HYDROmorphone 1 mg/ml ISec ONE ×2 (15:08→17:00)
[2016-10-15] MEDS ORDERED: DiphenhydrAMINE 50 mg/ml Inj IVP STA (15:12)
[2016-10-15] MEDS ORDERED: DiphenhydrAMINE 50 mg/ml Inj ONE (15:15)
[2016-10-15 15:17] LABS: BASO # 0.1 K/uL (0.0-0.2); EOS # 0.1 K/uL (0.0-0.7); HEMATOCRIT 37.8 % (34.0-47.0); LYMPH # 1.4 K/uL (1.0-4.3); LYMPH % 28.6 % (20.0-40.0); MEAN CORPUSCULAR HEMOGLOBIN 26.4 pg (27.0-31.0); MEAN CORPUSCULAR HGB CONC 33.4 g/dL (33.0-37.0); MEAN PLATELET VOLUME 7.7 fL (7.2-11.7); MONO # 0.6 K/uL (0.0-0.8); MONO % 11.5 % (0.0-10.0); NRBC % 0.2 % (0.0-2.0); RED CELL DISTRIBUTION WIDTH 16.2 % (11.5-14.5)
[2016-10-15 15:25] LABS: MEAN CELL VOLUME 79.2 fL (81.0-99.0)
[2016-10-15 15:50] LABS: ALKALINE PHOSPHATASE 111 U/L (38-126); ALT/SGPT 31 U/L (9-52); AST/SGOT 40 U/L (14-36); BILIRUBIN,TOTAL 0.5 mg/dL (0.2-1.3); BLOOD UREA NITROGEN 27 mg/dL (7-17); CALCIUM 9.5 mg/dl (8.6-10.4); CARBON DIOXIDE 23 mmol/L (22-30); CHLORIDE 102 mmol/L (98-107); GFR AFRICAN-AMERICAN 44; GLUCOSE,RANDOM 71 mg/dL (65-105); POTASSIUM 3.9 mmol/L (3.6-5.2); SODIUM 139 mmol/L (132-148); TOTAL PROTEIN 7.4 g/dL (6.3-8.3)
[2016-10-15 17:03] VITALS: BP 154/84; PULSE 75; RESP 18; O2SAT 98
--- NOTE | 2016-10-15 18:10 | C.PDOC ---
History Of Present Illness 51 y/o female presents to ED with complaints of intermittent left side chest pain and left arm pain with body aches for 3 months. Patient is on Dilaudid and Oxycodone for pain management post chemo therapy for Lymphoma. Patient denies sob, chest pain, cough, fever or any other complaints at this time. Time Seen by Provider: 10/15/16 14:19 Chief Complaint (Nursing): Chest Pain History Per: Patient History/Exam Limitations: no limitations Onset/Duration Of Symptoms: Days Current Symptoms Are (Timing): Still Present Past Medical History Reviewed: Historical Data, Nursing Documentation, Vital Signs Vital Signs: Last Vital Signs Temp 97.9 F 10/15/16 14:15 Pulse 75 10/15/16 17:02 Resp 18 10/15/16 17:02 BP 154/84 H 10/15/16 17:02 Pulse Ox 98 10/15/16 18:15 - Medical History PMH: Anxiety, Arthritis (BACK AND KNEE PAIN), Depression, Diabetes, Gall Bladder Disease (cholecystectomy 3 yrs. ago), HTN, Malignancy (on chemo), Pancreatitis Denies: Chronic Kidney Disease Surgical History: Cholecystectomy - [facility] Procedures ASSISTANCE WITH RESPIRATORY VENTILATION, 24-96 HRS, CPAP (10/14/15) BYPASS TRANSVERSE COLON TO CUTANEOUS, OPEN APPROACH (10/14/15) EXCISION OF AORTIC LYMPHATIC, PERCUTANEOUS APPROACH, DIAGN (09/20/15) EXCISION OF RIGHT UPPER LUNG LOBE, ENDO, DIAGN (10/14/15) EXCISION OF RIGHT UPPER LUNG LOBE, PERC APPROACH, DIAGN (01/01/16) EXCISION OF STOMACH, ENDO, DIAGN (05/24/15) INSERTION OF INFUSION DEV INTO SUP VENA CAVA, PERC APPROACH (01/01/16) INSERTION OF VAD INTO CHEST SUBCU/FASCIA, OPEN APPROACH (01/01/16) LAPAROSCOPIC CHOLECYSTECTOMY (08/23/13) MYRINGOTOMY W INTUBATION (09/01/12) REPAIR ABDOMINAL WALL, OPEN APPROACH (01/01/16) VENOUS CATHETERIZATION NEC (09/09/12) Family History: States: Unknown Family Hx - Social History Hx Tobacco Use: No Hx Alcohol Use: No Hx Substance Use: No - Immunization History Hx Tetanus Toxoid Vaccination: No Hx Influenza Vaccination: No Hx Pneumococcal Vaccination: No Review Of Systems Except As Marked, All Systems Reviewed And Found Negative. Constitutional: Negative for: Fever, Chills Cardiovascular: Positive for: Chest Pain Respiratory: Negative for: Cough, Shortness of Breath Gastrointestinal: Negative for: Nausea, Vomiting Genitourinary: Negative for: Dysuria Musculoskeletal: Positive for: Arm Pain, Other (Generalized bodyaches) Skin: Negative for: Rash Physical Exam - Physical Exam Appears: Non-toxic, No Acute Distress Skin: Normal Color, Warm, No Rash Head: Atraumatic, Normacephalic Eye(s): bilateral: Normal Inspection Oral Mucosa: Moist Neck: Supple Chest: Symmetrical, Other (Left port underneath left clavicle ) Cardiovascular: Rhythm Regular Respiratory: Normal Breath Sounds, No Rales, No Rhonchi, No Wheezing Gastrointestinal/Abdominal: Soft, No Tenderness, No Guarding Extremity: Normal ROM, Capillary Refill (<2 seconds) Neurological/Psych: Oriented x3, Normal Speech ED Course And Treatment - Laboratory Results Result Diagrams: 10/15/16 15:08 10/15/16 15:08 ECG: Interpreted By Me, Viewed By Me ECG Rhythm: Sinus Rhythm ECG Interpretation: Normal Rate From EC (bpm) O2 Sat by Pulse Oximetry: 98 (ra) Pulse Ox Interpretation: Normal Disposition - Disposition [facility] [Outside] Disposition: HOME/ ROUTINE Disposition Time: 16:15 Condition: IMPROVED Additional Instructions: Thank you for letting us take care of you today. Your provider was Dr. Adames. You were treated for chronic pain. The emergency medical care you received today was directed at your acute symptoms. If you were prescribed any medication, please fill it and take as directed. It may take several days for your symptoms to resolve. Return to the Emergency Department if your symptoms worsen, do not improve, or if you have any other problems. Please contact your doctor or call one of the physicians/clinics you have been referred to that are listed on the Patient Visit Information form that is included in your discharge packet. Bring any paperwork you were given at discharge with you along with any medications you are taking to your follow up visit. Our treatment cannot replace ongoing medical care by a primary care provider (PCP) outside of the emergency department. Thank you for allowing the [facility] team to be part of your care today. Follow up with the clinic in 2-3 days for chronic pain management and further evaluation. Prescriptions: DiphenhydrAMINE [Benadryl] 25 mg PO Q6 PRN #30 cap PRN Reason: Itching / Pruritus HYDROmorphone [Dilaudid] 4 mg PO Q4 PRN #30 tab PRN Reason: Pain, Severe (8-10) Instructions: Chronic Pain (ED) Forms: [facility] (Tunisian) - Clinical Impression Clinical Impression: Dizziness, Pleuritic pain - Scribe Statement The provider has reviewed the documentation as recorded by the Bereiblisa Jorge All medical record entries made by the Codi were at my direction and personally dictated by me. I have reviewed the chart and agree that the record accurately reflects my personal performance of the history, physical exam, medical decision making, and the department course for this patient. I have also personally directed, reviewed, and agree with the discharge instructions and disposition.
--- NOTE | 2016-10-18 20:42 | CARD ---
APPROVED REPORT EKG Measurement Heart [id number] <Conclusion> Normal sinus rhythm T wave abnormality, consider inferior ischemia Abnormal ECG
--- NOTE | 2016-10-18 20:43 | CARD ---
APPROVED REPORT EKG Measurement Heart [id number] <Conclusion> Normal sinus rhythm Normal ECG
== END 2016-10-15 17:41 | disposition home or self-care (01) ==
LOC: C.ER 13:59
DX: R07.81 Pleurodynia (principal); R42 Dizziness and giddiness
CPT/HCPCS: 71010; 80053; 82948; 83880; 84484; 85025; 93005; 96374; 96375; 96376; 99284; J1170; J1200

== ENCOUNTER 2016-10-29 11:20 | Day surgery (SDC) | payer OTHER ==
[2016-10-19 15:00] VITALS: BMI 33.7
[2016-10-29] MEDS ORDERED: Vancomycin 1 gm/D5W 200 ml 1 GM/200 ML BAG IVPB ONE (14:02)
[2016-10-29] MEDS ORDERED: Lactated Ringer's 1,000 ML IV ONE (14:06)
[2016-10-29] MEDS ORDERED: Midazolam 2 MG/2 ML VIAL ONE (14:15)
[2016-10-29] MEDS ORDERED: Propofol 10 mg/ml Inj (20 ML) ONE (14:15)
[2016-10-29] MEDS ORDERED: Neostigmine Methylsulfate 3mg/3ml Syringe IV ONE (15:49)
--- NOTE | 2016-10-29 16:02 | PCM.SURG1 ---
Surgeon's Initial Post Op Note - Surgeon's Notes Surgeon: Dr. Cabezas Dot Compliance Specialist: Dr. Bai PGY-3, [place] OM-III Type of Anesthesia: General Endo Pre-Operative Diagnosis: Incisional hernia Operative Findings: Reducible Incisional hernia with bowel through previous colostomy site Post-Operative Diagnosis: Incisional hernia Operation Performed: Repair of incisional hernia with mesh Specimen/Specimens Removed: none Estimated Blood Loss: EBL {In ML}: 20 Blood Products Given: N/A Drains Used: No Drains Post-Op Condition: Good Date of Surgery/Procedure: 10/29/16 Time of Surgery/Procedure: 16:01
[2016-10-29] MEDS: HYDROmorphone 0.5 mg/0.5 ml ISec IVP PRN ×5 (16:10→17:20)
[2016-10-29 19:17] VITALS: TEMP 98.5
[2016-10-29] MEDS ORDERED: HYDROmorphone 0.5 mg/0.5 ml ISec ONE (19:28)
[2016-10-29] MEDS ORDERED: HYDROmorphone 0.5 mg/0.5 ml ISec IVP STA (19:38)
[2016-10-29 20:44] VITALS: BP 158/80; PULSE 101; RESP 20; O2SAT 96
--- NOTE | 2016-10-30 21:58 | OP ---
PROCEDURE DATE: 10/29/2016 PREOPERATIVE DIAGNOSIS: Incisional hernia. POSTOPERATIVE DIAGNOSIS: Incisional hernia. PROCEDURE: Incisional hernia repair with mesh. SURGEON: Dr. Cabezas. PRIMARY SCHOOL TEACHER LIBRARIAN: Dr. Bai. TYPE OF ANESTHESIA: General. ANESTHESIA ADMINISTERED BY: Dr. King Wyatt. DESCRIPTION OF PROCEDURE: With the patient in the supine position under adequate general anesthesia, the abdomen was prepped and draped in the usual sterile manner. The patient had a previous transverse colostomy with a hernia at the right upper quadrant colostomy site, fairly close to the costal margin and the skin was opened in the transverse incision at the colostomy site taken down through the full thickness of skin. There was some hernia sac formation with transverse colon also noted presenting into the wound and the visible colon was sharply dissected off the overlying subcutaneous tissue down to the edge of the fascia. The hernia sac was noted to extend somewhat in an inferolateral direction beyond the confines of the fascial defect, and the sac was dissected away from the subcutaneous tissue to allow a proper fascial edge to be identified. The upper fascial edge was relatively close to the costal margin, although enough fascia was noted to be palpable to allow closure of the defect. The colon, omentum and other adhesions were then sharply dissected away from the interior edge of the fascia allowing the peritoneum to be palpated circumferentially and the defect was noted to be approximately 3 inches in diameter. As the fascia would close primarily, transfascial sutures of 0 Vicryl were placed circumferentially under direct vision using 0 Prolene and then left clamped and the defect was closed primarily in a transverse direction using running suture of 0 Monocryl. The defect closed with minimum tension and after the defect was closed, primarily an overlay patch of Prolene Lite polypropylene mesh was trimmed to cover the area of the repair with 1-inch overlap on each side. The mesh was then fixed down over the fascial closer using the previously placed sutures and maintaining slight tension on the mesh as it was tied down. When this had been completed, the repair was known to be well covered and the subcutaneous tissues were approximated with 3-0 Vicryl sutures. Skin was closed with aidan. Dry sterile dressing was applied. The patient tolerated the procedure well and transferred to recovery room in stable condition. ESTIMATED BLOOD LOSS FOR THE PROCEDURE: 20 mL. Shari Cabezas MD [facility] # [id number]
== END 2016-10-29 20:55 | disposition home or self-care (01) ==
LOC: C.SDS 11:20 → C.9S 19:42 → UNDOADMOB 19:42 → C.SDS 20:55
PROVIDERS: ATTEND Specialist
DX: K43.2 Incisional hernia without obstruction or gangrene (principal)
CPT/HCPCS: 49560; 49568; 82948; J1170; J2250; J2405; J2704; J2710; J3010; J3370; J7120